=== PATIENT | female | born 2000 | race Caucasian/White ===

== ENCOUNTER 2023-05-02 10:08 | Outpatient (REF) | payer BC, SELFPAY ==
[2023-05-02 10:50] LABS: Bilirubin Urine NEGATIVE (NEGATIVE); Blood Urine MODERATE (NEGATIVE); Clarity Urine CLOUDY (CLEAR); Color Urine LT. YELLOW (YELLOW); Glucose Urine UA NEGATIVE (NEGATIVE); Ketones Urine NEGATIVE (NEGATIVE); Leukocyte Esterase Urine MODERATE (NEGATIVE); Nitrite Urine NEGATIVE (NEGATIVE); Protein Urine 100 mg/dL (NEG/TRACE); Specific Gravity Urine 1.025 (1.005-1.025); Urobilinogen Urine 0.2 EU/dL (0.2-1.0)
[2023-05-02 11:06] LABS: Bacteria Urine MODERATE #/HPF (NONE SEEN); Cast Seen? NONE SEEN #/LPF (NONE SEEN); Crystals Seen? None Seen #/HPF (None Seen); Mucus Urine TRACE (NONE SEEN); Squamous Epithelial Cell Urine RARE #/LPF (NONE/RARE); WBC Urine 75-100 #/HPF (NONE SEEN)
== END 2023-05-02 10:09 | disposition home or self-care (01) ==
LOC: LAB 10:08
PROVIDERS: PCP Family Medicine; Visit Provider Nurse Practitioner Family
DX: R35.0 Frequency of micturition (principal)
CPT/HCPCS: 81001; 81003; 87086; 87186

== ENCOUNTER 2023-05-14 10:19 | Outpatient (OUT) | payer BC, SELFPAY ==
[2023-05-14 10:37] LABS: Bilirubin Urine NEGATIVE (NEGATIVE); Blood Urine NEGATIVE (NEGATIVE); Clarity Urine CLEAR (CLEAR); Color Urine LT. YELLOW (YELLOW); Glucose Urine UA NEGATIVE (NEGATIVE); Ketones Urine NEGATIVE (NEGATIVE); Leukocyte Esterase Urine NEGATIVE (NEGATIVE); Nitrite Urine NEGATIVE (NEGATIVE); Protein Urine NEGATIVE (NEG/TRACE); Specific Gravity Urine <=1.005 (1.005-1.025); Urobilinogen Urine 0.2 EU/dL (0.2-1.0)
[2023-05-14 11:20] LABS: Bacteria Urine NONE SEEN #/HPF (NONE SEEN); Cast Seen? NONE SEEN #/LPF (NONE SEEN); Crystals Seen? None Seen #/HPF (None Seen); Mucus Urine NONE SEEN (NONE SEEN); RBC Urine 0-2 #/HPF (0-2); Squamous Epithelial Cell Urine RARE #/LPF (NONE/RARE); Urine Culture Indicated ALREADY ORDERED; WBC Urine NONE SEEN #/HPF (NONE SEEN)
== END 2023-05-14 10:20 | disposition home or self-care (01) ==
LOC: LAB 10:21
PROVIDERS: PCP Nurse Practitioner Family; Visit Provider Nurse Practitioner Family
DX: R30.0 Dysuria (principal)
CPT/HCPCS: 81001; 87086; 87150; 87186

== ENCOUNTER 2023-05-28 12:25 | Outpatient (OUT) | payer BC, SELFPAY ==
[2023-05-28 12:52] LABS: Bilirubin Urine NEGATIVE (NEGATIVE); Blood Urine NEGATIVE (NEGATIVE); Clarity Urine CLEAR (CLEAR); Color Urine LT. YELLOW (YELLOW); Glucose Urine UA NEGATIVE (NEGATIVE); Ketones Urine NEGATIVE (NEGATIVE); Leukocyte Esterase Urine NEGATIVE (NEGATIVE); Nitrite Urine NEGATIVE (NEGATIVE); Protein Urine NEGATIVE (NEG/TRACE); Specific Gravity Urine <=1.005 (1.005-1.025); Urobilinogen Urine 0.2 EU/dL (0.2-1.0); pH Urine 6.5 (5.0-9.0)
== END 2023-05-28 12:26 | disposition home or self-care (01) ==
LOC: LAB 12:28
PROVIDERS: PCP Nurse Practitioner Family; Visit Provider Nurse Practitioner Family
DX: R35.0 Frequency of micturition (principal)
CPT/HCPCS: 81003; 87086

== ENCOUNTER 2023-06-20 09:02 | Outpatient (OUT) | payer BC, SELFPAY ==
--- OUTSIDE RECORDS SUMMARY | 2023-06-20 09:14 | XMS_ITS | CCD ---
Author Name Unknown Address [address] [place] [address] Organization [facility] Care Team Providers Care Internal Grinder Name Role Phone EVERT ALVARADO Primary Care Physician Asaad, Imad Unavailable NILL ., DR CORTES Admitting Unavailable NILL ., DR CORTES Attending Unavailable HOY ., DR ANN Primary Care Unavailable NILL ., DR CORTES Consulting Unavailable EVA AMADOR Consulting Unavailable NILL ., DR CORTES Admitting Unavailable NILL ., DR CORTES Attending Unavailable HOY ., DR ANN Primary Care Unavailable NILL ., DR CORTES Consulting Unavailable BENNIE WALDEN Consulting Unavailable REY ZAZUETA Consulting Unavailable Asaad, Imad Admitting Unavailable Asaad, Imad Attending Unavailable NON STAFF Primary Care Unavailable Sebastian VACA Attending Unavailable EVERT ALVARADO Referring Unavailable Sebastian VACA Attending Unavailable MARTY, Sebastian Duenas Attending Unavailable EVERT ALVARADO Referring Unavailable NILLSebastian Attending Unavailable Allergies Allergy Classification Reported Allergen(s) Allergy Type Date of Onset Reaction(s) Facility (1 source) No Known Medication Allergies; Translations: [No Known Medication Allergies] Propensity to adverse reactions (disorder) [facility] Repository Medications Current Medications Medication Drug Class(es) Dates Sig (Normalized) Sig (Original) hydrocortisone acetate 25 mg rectal suppository (5 sources) Corticosteroid Start: 06-12-2023 Anusol-HC 25 MG 1 suppository Rectal Once a day for 30 days May, Active Start: 02-14-2023 Anusol-HC 2.5 % 1 application Rectal Twice a day for 10 days Jan, Active Start: 02-14-2023 Anusol-HC 2.5 % 1 application Rectal Twice a day for 10 days Jan, Active mesalamine 1000 mg rectal suppository (5 sources) Aminosalicylate Start: 07-11-2022 take 1000 mg rectal route once daily at bedtime Canasa 1000 mg rectal suppository 1,000 mg = 1 supp, Rectal, Once a day (at bedtime), # 30 supp, Refills(s) 1, Pharmacy: [facility]/pharmacy #[id number], 165, cm, 05/22/22 13:28:00 EST, Height/Length Dosing, 74.4, kg, 05/22/22 13:28:00 EST, Weight Dosing Start Date: 07/11/22 Status: Ordered Multi Vitamins oral tablet (2 sources) Start: 05-22-2022 take 1 tablet by mouth once daily Multi Vitamins oral tablet 1 tab(s), Oral, Daily, Refill(s) 0 Start Date: 05/22/22 Status: Ordered Problems Active Problems Problem Classification Problem Date Documented Da te Episodic/Chronic Anal and rectal conditions (4 sources) Anorectal disorder; Translations: [Other specified diseases of anus and rectum] Onset: 07-11-2022 Episodic Gastrointestinal hemorrhage (7 sources) Hemorrhage of rectum and anus; Translations: [Hemorrhage of anus and rectum] Onset: 05-22-2022 Episodic Hemorrhoids (5 sources) Internal hemorrhoids; Translations: [Other hemorrhoids] Episodic Noninfectious gastroenteritis (1 source) Noninfective gastroenteritis and colitis, unspecified; Translations: [NONINFECTIVE GE AND COLITIS UNS] Onset: 07-13-2022 Episodic Other aftercare (1 source) Other nursing home (current) drug therapy; Translations: [OTH PRISON CURRENT DRUG THERAPY] Onset: 07-13-2022 Episodic Other gastrointestinal disorders (2 sources) Constipation 05-18-2022 Episodic Other nutritional; endocrine; and metabolic disorders (2 sources) Overweight in adulthood with body mass index of 25 or more but less than 30 05-22-2022 Episodic Regional enteritis and ulcerative colitis (5 sources) Chronic ulcerative proctitis; Translations: [Ulcerative (chronic) proctitis without complications] Chronic Residual codes; unclassified (1 source) Family history of ischemic heart disease and other diseases of the circulatory system; Translations: [FAM HX ISCHEMIC HRT DZ OTH DZ CIRC] Onset: 07-13-2022 Episodic Unclassified (1 source) PERSONAL HISTORY OF COVID-19; Translations: [PERSONAL HISTORY OF COVID-19] Onset: 07-13-2022 Unclassified (1 source) CONTACT W/AND (SUSP) EXPOS COVID-19; Translations: [CONTACT W/AND (SUSP) EXPOS COVID-19] Onset: 06-24-2022 Viral infection (2 sources) Viral disease 05-18-2022 Episodic Past or Other Problems Problem Classification Problem Date Documented Da te Episodic/Chronic Unclassified (2 sources) Exposure to 2019 novel coronavirus 05-18-2022 Viral infection (2 sources) Disease caused by 2019-nCoV 05-18-2022 Results Test Name Value Interpretation Reference Range Facil ity HCG,Urineon 09-18-2022 Beta HCG ( test) Ql (U) Negative Normal [facility] Comment on above: Result Comment: PERF ORMED BY: [place] [address] PATHOLOGIST IMPLEMENTATION PROJECT MANAGER MARTA OVALLES M.D. Performed By: #### U HCG #### [address] [place] 09-18-2022 L -- ---- Specimen: Received: 09/18/22 Status: VJ Mccord Num: [id number] Spec Type: Surgical Subm Dr: Roxane Oakley MD Tissues: A Colon Biopsy (RECTAL BX) Procedures: HE/2, Gross/Micro L4 ---- Age/ Patient Sex Location Account Attending Physician ---- Christina Borjas 22/F [id number] Roxane Oakley MD ---- SPEC NUM: RECD: 09/18/22 STATUS: RADHAAmanda PATTIE NUM: [id number] LEIGHANN: 09/18/[address] [facility] [address]: Roxane Oakley MD ENTERED: 09/18/[address] [facility] [address]: AMY TYPE: Surgical DEPT: S ORDERED: HE/2, Gross/Micro L4 ORDERED: HE/2, Gross/Micro L4 Pathological Diagnosis Rectum, biopsy: - Colonic mucosa negative for significant histopathologic changes. - There is no evidence of acute, chronic or microscopic colitis. - Negative for epithelial dysplasia. Clinical Information Proctitis Gross Description Received in formalin labeled with the patient's name, number and rectal biopsy are two fragments of soft thomas tissue averaging 0.4 x 0.2 x 0.1 cm. Entirely submitted in one cassette labeled A1. Microscopic Description Two glass slides with H E stained material have been examined. The microscopic findings support the above pathologic diagnosis. ---- Specimen: Received: 09/18/22 Status: VJ Mccord Num: [id number] Spec Type: Surgical Subm Dr: Roxane Oakley MD Tissues: A Colon Biopsy (RECTAL BX) Procedures: Tyshawn COATES/Joe L4 ---- Patient: Christina Borjas [id number] (Continued) ---- Specimen: Received: 09/18/22 (Continued) Signed (signature on file) Effie Kimbrough MD 09/19/22 1018 ---- Specimen: Received: 09/18/22 Status: VJ Mccord Num: [id number] Spec Type: Surgical Subm Dr: Roxane Oakley MD Tissues: A Colon Biopsy (RECTAL BX) Procedures: Tyshawn COATES/Joe L4 ---- Patient: Christina Borjas [id number] (Continued) ---- Specimen: Received: 09/18/22 (Continued) CPT Codes 87189 ---- ---- Specimen: Received: 09/18/22 Status: VJ Mccord Num: [id number] Spec Type: Surgical Subm Dr: Roxane Oakley MD Tissues: A Colon Biopsy (RECTAL BX) Procedures: HE/2, Gross/Micro L4 ---- Patient: SuadGianaChristina C [id number] (Continued) ---- Signed (signature on file) Effie Kimbrough MD 09/19/22 1018 [facility] Consultation Noteon 07-31-19 Consultation Note [id number] 0CD:127 [facility] Ambulatory Visit Summaryon 0 07-18-2022 Ambulatory Visit Summary CHRISTINA BORJAS :2000 Visit Date:07/11/2022 Ambulatory Visit Instructions Your Diagnosis Proctitis Your Care Team Attending Physician - MARTY MIJARES, Sebastian Duenas Primary Care Physician - EVERT ALVARADO CNP This Is Your Medications List mesalamine (Canasa 1000 mg rectal suppository) Contact prescribing physician if questions or concerns multivitamin (Multi Vitamins oral tablet) Procedures Performed Colonoscopy (06/27/2022), Abscess of skin and/or subcutaneous tissue caused by ingrown hair, Extraction of wisdom tooth. What to do next Someone Will Contact You Regarding These Appointments [facility] [place] Referral, Geographic proximity, [place], [facility], possible ulcerative proctitis, 07/11/22 14:42:00 EST, Proctitis Medications What How Much When Why Instructions New mesalamine (Canasa 1000 mg rectal suppository) 1 Suppositories By rectum Once a day (at bedtime) Proctitis Refills: 1 Pickup at [facility]/pharmacy #[id number] Unchanged multivitamin (Multi Vitamins oral tablet) 1 Tablets By Mouth Every day Contact prescribing physician if questions or concerns Pharmacy Information [facility]/pharmacy #[id number]: [address], [place] [phone] Allergies No Known Allergies No Known Medication Allergies Problems Ongoing - Any problem that you are currently receiving treatment for. BMI 27.0-27.9,adult BRBPR (bright red blood per rectum) Constipation Proctitis Historical - Any problem that you are no longer receiving treatment for. COVID-19 virus infection Exposure to COVID-19 virus Viral illness Panfilo Snyder [facility] General Surgery Office/Clini c Noteon 07-11-2022 General Surgery Office/Clinic Note Chief Complaint colonoscopy follow up HPI Staff 14 day post operative follow up post colonoscopy with rectal biopsy. Rectal bleeding is unchanged. History of Present Illness s/o colonoscopy with rectal biopsy for distal proctitis; pathology consistent with mild colitis; still with frequent rectal bleeding with bms. Review of Systems ROS - Provider Constitutional: no fever, no sweats, no weight loss. Eyes: no glasses, no blurred vision, no visual loss. ENMT: no dentures, no hoarseness, no swallowing difficulties, no hearing loss, no ear infection(s), no nose bleeds. Cardiovascular: normal blood pressure, no chest pain, regular heartbeat, no heart murmur. Respiratory: no shortness of breath, no cough, no asthma, no wheezing. Gastrointestinal: no nausea, no vomiting, no diarrhea, no constipation, no blood in stool, no change in bowel habits, no abdominal pain, no hepatitis. Genitourinary: no kidney stones, no urine infection, no dysuria. Musculoskeletal: no pain, no weakness. Skin: no changing moles, no rash, no skin lumps. Neurologic: no seizures, no epilepsy, no headache. Psychiatric: no emotional or psychiatric problem. Heme/Lymph: no bleeding problems, no anemia, no blood clots, no transfusions. Allergy/Immunologic: no swollen lymph nodes/glands, no IV drug abuse. Other: Additional ROS info: Except as noted in the above Review of Systems and in the History of Present Illness, all other systems have been reviewed and are negative or noncontributory. Assessment/Plan 1. Proctitis (K62.89: Other specified diseases of anus and rectum) possible ulcerative proctitis, will begin mesalamine supp 1 gm q hs; refer to Gastroenterology at [facility], per family request; call with problems/questions. Ordered: mesalamine, 1,000 mg = 1 supp, Rectal, Once a day (at bedtime), # 30 supp, Refills(s) 1, Pharmacy: [facility]/pharmacy #[id number], 165, cm, 05/22/22 13:28:00 EST, Height/Length Dosing, 74.4, kg, 05/22/22 13:28:00 EST, Weight Dosing [facility] [place] Ambulatory Referral Follow-up No qualifying data available Problem List/Past Medical History Ongoing BMI 27.0-27.9,adult BRBPR (bright red blood per rectum) Constipation Proctitis Historical COVID-19 virus infection Exposure to COVID-19 virus Viral illness Procedure/Surgical History Colonoscopy (06/27/2022), Abscess of skin and/or subcutaneous tissue caused by ingrown hair, Extraction of wisdom tooth. Medications Canasa 1000 mg rectal suppository, 1000 mg= 1 supp, Rectal, Once a day (at bedtime), 1 refills Multi Vitamins oral tablet, 1 tab(s), Oral, Daily Allergies No Known Allergies No Known Medication Allergies Social History Alcohol - Denies Alcohol Use, 05/22/2022 Household alcohol concerns: No., 10/31/2018 Substance Abuse - Denies Substance Abuse, 05/22/2022 Household substance abuse concerns: No., 10/31/2018 Tobacco Never (less than 100 in lifetime) Tobacco Use:. Never Smokeless Tobacco Use:., 05/22/2022 Family History Family history is negative Immunizations Vaccine Date Status Comments influenza virus vaccine, inactivated - Not Given Patient Refuses tetanus-diphtheria toxoids 01/21/2014 Recorded meningococcal conjugate vaccine 01/21/2014 Recorded varicella virus vaccine 08/06/2006 Recorded measles/mumps/rubella virus vaccine 08/06/2006 Recorded poliovirus vaccine, inactivated 08/06/2006 Recorded diphtheria/pertussis, acel/tetanus adult 08/06/2006 Recorded varicella virus vaccine 11/11/2002 Recorded measles/mumps/rubella virus vaccine 11/11/2002 Recorded haemophilus b conjugate (HbOC) vaccine 11/11/2002 Recorded diphtheria/pertussis, acel/tetanus adult 11/11/2002 Recorded hepatitis B adult vaccine 05/08/2002 Recorded poliovirus vaccine, inactivated 05/08/2002 Recorded haemophilus b conjugate (HbOC) vaccine 05/08/2002 Recorded diphtheria/pertussis, acel/tetanus adult 05/08/2002 Recorded hepatitis B adult vaccine 2001 Recorded poliovirus vaccine, inactivated 2001 Recorded haemophilus b conjugate (HbOC) vaccine 2001 Recorded diphtheria/pertussis, acel/tetanus adult 2001 Recorded hepatitis B adult vaccine 2001 Recorded poliovirus vaccine, inactivated 2001 Recorded haemophilus b conjugate (HbOC) vaccine 2001 Recorded diphtheria/pertussis, acel/tetanus adult 2001 Recorded Normal [facility] Comment on above: Result Comment: Elec tronically Signed By: MARTY MIJARES, Sebastian Marie\Date and Time Signed: 07/11/22 14:55 EST Pathology Noteon 06-29-2022 Pathology Note [id number] 0CD:127 Normal [facility] Outside Colonoscopyon 2022 Outside Colonoscopy [id number] 0CD:127 Normal [facility] POINT OF CARE GLUCOSEon 06-17 Glucose [Mass/Vol] 106 mg/dL Normal 74-106 [facility] Comment on above: Performed By: #### P OCGLUC #### [facility] [address] [place] [address] Dr. Lance Mendoza PREG HCG QUALon 06-27-2022 , QUAL Negative Normal NEGATIVE [facility] Comment on above: Performed By: #### P REG #### [facility] [address] [address] [address] Lance Mendoza Lab Reportson 06-21-2022 Lab Reports [id number] 0CD:127 Normal [facility] Covid-19 PCR (CVDTB)on SARS-CoV-2 (COVID-19) RNA SHANIQUA+probe Ql (Unsp spec) Not detected Normal NOT DETECTED [facility] Comment on above: Result Comment: This test is not yet approved or cleared by the [place] FDA. When there are no FDA-approved or cleared tests available, and other criteria are met, FDA can make tests available under an emergency access mechanism called an Emergency Use Authorization (EUA). The EUA for this test is supported by the Stop Attacher of Health and Human Service's (HHS's) declaration that circumstances exist to justify the emergency use of in vitro diagnostics for the detection and/or diagnosis of the virus that causes COVID-19. This EUA will remain in effect (meaning this test can be used) for the duration of the COVID-19 declaration justifying emergency of IVDs, unless it is terminated or revoked by FDA (after which the test may no longer be used). When diagnostic testing is negative, the possibility of a false negative should be considered in the context of a patient's recent exposures and the presence of clinical signs and symptoms consistent with SARS-CoV-2. Performed By: #### C [facility] #### [facility] [address] [place] [address] Dr. Lance Mendoza Consent for Procedure/Surger yon 05-24-2022 Consent for Procedure/Surgery [id number] 0CD:127 [facility] Facesheeton 05-24-2022 Facesheet [id number] 0CD:127 [facility] Physician Referralon 022 Physician Referral [id number] 0CD:127 [facility] Auth for Release of Medical Recordson 02-01-2022 Auth for Release of Medical Records [id number] CD:127 [facility] Vital Signs Date Time Vital Sign Value Performing Clinician Facility 02-14-2023 08:45-0400 Body height 167.64 cm [facility] Other [email or web address] Other 02-14-2023 08:45-0400 Body mass index (BMI) [Ratio] 25.98 kg/m2 [facility] Other [email or web address] Other 02-14-2023 08:45-0400 Body weight 73.03 kg Imad Asaad Other [email or web address] Other 02-14-2023 08:45-0400 Diastolic blood pressure 73 mm[Hg] Imad Asaad Other [email or web address] Other 02-14-2023 08:45-0400 Systolic blood pressure 121 mm[Hg] Imad Asaad Other [email or web address] Other 07-26-2022 09:45-0500 Body height 167.64 cm Imad Asaad Other [email or web address] Other 07-26-2022 09:45-0500 Body mass index (BMI) [Ratio] 27.6 kg/m2 Imad Asaad Other [email or web address] Other 07-26-2022 09:45-0500 Body weight 77.57 kg Imad Asaad Other [email or web address] Other 07-26-2022 09:45-0500 Diastolic blood pressure 64 mm[Hg] Imad Asaad Other [email or web address] Other 07-26-2022 09:45-0500 Systolic blood pressure 101 mm[Hg] Imad Asaad Other [email or web address] Other 05-22-2022 13:21-0500 Blood Pressure Location Sebastian VACA [facility] 05-22-2022 13:21-0500 Diastolic blood pressure 74 mm[Hg] Sebastian VACA [facility] 05-22-2022 13:21-0500 Heart rate 72 /min Sebastian MARTY [facility] 05-22-2022 13:21-0500 Respiratory rate 16 /min Sebastian MARTY [facility] 05-22-2022 13:21-0500 Systolic blood pressure 118 mm[Hg] Sebastian MARTY [facility] [place] Encounters Encounter Date Encounter Type Care Provider Facility Start: 06-12-2023 End: 06-12-2023 ambulatory Imad Asaad Other [email or web address] Other Start: 06-12-2023 Telephone encounter Imad Asaad [facility] Start: 06-04-2023 End: 06-04-2023 ambulatory Imad Asaad Other [email or web address] Other Start: 06-04-2023 Telephone encounter Imad Asaad [facility] Start: 04-19-2023 End: 04-19-2023 ambulatory Imad Asaad Other [email or web address] Other Start: 04-19-2023 Telephone encounter Imad Asaad [facility] Start: 02-14-2023 End: 02-14-2023 ambulatory Imad Asaad Other [email or web address] Other Start: 02-14-2023 Office outpatient ne w 45 minutes Imad Asaad [facility] Start: 09-18-2022 End: 09-18-2022 ambulatory Imad Asaad Facility:[facility] Start: 07-26-2022 End: 07-26-2022 ambulatory Imad Asaad Other [email or web address] Other Start: 07-26-2022 Office consultation new/estab patient 60 min Imad Asaad [facility] Start: 07-11-2022 End: 07-12-2022 ambulatory Sebastian VACA Facility:[facility] Start: 07-11-2022 End: 07-11-2022 Patient encounter procedure Sebastian VACA General Surgery Nill/Said [facility] Start: 06-27-2022 End: 06-28-[address] SEBASTIAN VACA . Facility: Start: 06-24-2022 Encounter for preprocedural laboratory examination DR SEBASTIAN VACA . [facility] Start: 06-20-2022 End: 06-21-[address] SEBASTIAN VACA . Facility: Start: 06-20-2022 End: 06-21-2022 Encounter for preprocedural laboratory examination DR SEBASTIAN VACA . Facility: Start: 05-22-2022 End: 05-23-2022 ambulatory Sebastian VACA Facility:[facility] Start: 05-22-2022 End: 05-22-2022 Patient encounter procedure Sebastian VACA General Surgery Nill/Said [facility] Start: 04-18-2022 ambulatory Sebastian VACA Facility :[facility] Procedures Date Procedure Procedure Detail Performing Clinician Start: 06-27-2022 Colonoscopy Sebastian SORIA Extraction of wisdom tooth M rolan MARTY Pilonidal abscess Sebastian SORIA Immunizations Immunization Date Immunization Notes Care Provider Fa [facility] 01-21-2014 meningococcal ACWY vaccine, unspecified formulation Sebastian VACA [facility] 01-21-2014 tetanus and diphther ia toxoids, adsorbed, preservative free, for adult use (2 Lf of tetanus toxoid and 2 Lf of diphtheria toxoid) Sebastian VACA [facility] 08-06-2006 measles, mumps and rubella virus vaccine Sebastian VACA [facility] 08-06-2006 poliovirus vaccine, unspecified formulation Sebastian VACA [facility] 08-06-2006 tetanus toxoid, reduced diphtheria toxoid, and acellular pertussis vaccine, adsorbed Sebastian NILL [facility] 08-06-2006 varicella virus vaccine Sebastian NILL [facility] 11-11-2002 haemophilus influenz ae type b vaccine, HbOC conjugate Sebastian NILL [facility] 11-11-2002 measles, mumps and rubella virus vaccine Sebastian NILL [facility] 11-11-2002 tetanus toxoid, reduced diphtheria toxoid, and acellular pertussis vaccine, adsorbed Sebastian NILL [facility] 11-11-2002 varicella virus vaccine Sebastian NILL [facility] 05-08-2002 haemophilus influenz ae type b vaccine, HbOC conjugate Sebastian NILL [facility] 05-08-2002 hepatitis B vaccine, adult dosage Sebastian NILL [facility] 05-08-2002 poliovirus vaccine, unspecified formulation Sebastian NILL [facility] 05-08-2002 tetanus toxoid, reduced diphtheria toxoid, and acellular pertussis vaccine, adsorbed Sebastian NILL [facility] 2001 haemophilus influenz ae type b vaccine, HbOC conjugate Sebastian NILL [facility] 2001 hepatitis B vaccine, adult dosage Sebastian NILL [facility] 2001 poliovirus vaccine, unspecified formulation Sebastian NILL [facility] 2001 tetanus toxoid, reduced diphtheria toxoid, and acellular pertussis vaccine, adsorbed Sebastian NILL [facility] 2001 haemophilus influenz ae type b vaccine, HbOC conjugate Sebastian NILL [facility] 2001 hepatitis B vaccine, adult dosage Sebastian NILL [facility] 2001 poliovirus vaccine, unspecified formulation Sebastian NILL [facility] 2001 tetanus toxoid, reduced diphtheria toxoid, and acellular pertussis vaccine, adsorbed Sebastian NILL [facility] NEGATED: Highlighted row has not occurred!05-22-2022 influenza virus vaccine, unspecified formulation Sebastian ARAGON [facility] [place] Payers Date Payer Category Payer Self-pay 2022 Unknown [id number] 2001 Unknown [id number] 2.16.84 [id number] 2001 Unknown [id number] 2.16.84 [id number] 2001 Unknown [id number] 2.16.8 [id number] 2001 Unknown [id number] 2.16.8 [id number] 2001 Unknown [id number] 2.16.8 [id number] 2001 Unknown [id number] 2.16.8 [id number] 1958 [facility] [id number] 1958 Unknown [id number] Unknown [id number] 2.16.8 [id number] Social History Date Type Detail Facility Start: 05-22-2022 Tobacco smoking status Never s moked tobacco (finding) [facility] Tobacco smoking status Never Gener [facility] Sex Assigned At Female [facility] Functional Status Date Assessment Result Facility 05-22-2022 Functional Status N/A [facility] Clinical Notes 05-22-2022 to 02-14-2023 Note Date & Type Note Facility 02-14-2023 Evaluation note Encounter Date Diagnosis Assessment Notes Jan, Hemorrhoids, internal (ICD-10 - K64.8) [email or web address] Other 02-09-2023 Evaluation note* Encounter Date Diagnosis Assessment Notes Treatment Notes Treatment Clinical Notes Jul, Proctitis (ICD-10 - K62.89) Continue Mesalamine suppositories for 8 weeks Flex sig after 8 weeks of treatment [email or web address] Other 01-11-2023 NoteOPERATIVE NOTE OPERATION DATE: 06/27/2022 PREOPERATIVE DIAGNOSIS: Intermittent rectal bleeding. POSTOPERATIVE DIAGNOSIS: Rectal inflammation. PROCEDURE: Colonoscopy to cecum with rectal biopsy x2. SURGEON: Sebastian Vaca M.D. ANESTHESIA: Monitored anesthesia care. ESTIMATED BLOOD LOSS: Less than 1 mL. INDICATIONS AND CONSENT: Patient is a 22-year-old female with several month history of intermittent rectal bleeding. Indications, risks, benefits, alternatives of proceeding with colonoscopy were explained extensively to the patient, including the risks of bleeding, colon perforation or anesthetic complications. All of her questions were answered. Informed consent was obtained. PROCEDURE: Patient brought to the operating room, placed in the left lateral decubitus position. Monitored anesthesia care was provided. Rectal exam was performed which showed no masses or blood. The scope was inserted into the anal canal. Under direct visualization was advanced. It was advanced to the cecum where cecal markings were clearly identified. The terminal ileum was unable to be intubated due to the angle. Upon withdrawal of the scope, mucosal surfaces were carefully examined. There were no mass lesions or polyps. No significant diverticulosis. Within the lower portion of the rectum, there was noted to be inflammation, but no active bleeding. Several biopsies were obtained with good hemostasis. There were no ulcerations. No significant hemorrhoidal disease. Scope was then withdrawn. Patient tolerated procedure well, was sent to recovery room in good condition. CC: Enrique Thomson M.D.[facility]12-06-2022 NoteChief Complaint consultation for rectal bleeding HPI Staff 21 year old female presents on consultation from Bing Alvarado for rectal bleeding. Reports 3-4 episodes per week for the past several months. Reports blood on stool, in toilet water and with wiping. Reports blood is bright red. Denies rectal pain. Denies change in stools or straining for bowel movements. Denies abdominal pain, nausea or vomiting. Denies weight loss. Never had colonoscopy in the past. No known family history of colon cancer or IBD. History of Present Illness 21 yo female referred for intermittent rectal bleeding over past several months; BRBBR with bms andwith wiping, about twice per week; no hematochezia or melena; no abdominal or rectal pain; no N/V; no previous abdominal or anal surgery; no previous colonoscopy; no fmhx of GI malignancy or IBD; patient's father with h/o colon polyps. Review of Systems PHQ Score Initial Depression Screen Score: 0 ROS - Provider Constitutional: no fever, no sweats, no weight loss. Eyes: no glasses, no blurred vision, no visual loss. ENMT: no dentures, no hoarseness, no swallowing difficulties, no hearing loss, no ear infection(s),no nose bleeds. Cardiovascular: normal blood pressure, no chest pain, regular heartbeat, no heart murmur. Respiratory: no shortness of breath, no cough, no asthma, no wheezing. Gastrointestinal: no nausea, no vomiting, no diarrhea, no constipation, no blood in stool, no change in bowel habits, no abdominal pain, no hepatitis. Genitourinary: no kidney stones, no urine infection, no dysuria. Musculoskeletal: no pain, no weakness. Skin: no changing moles, no rash, no skin lumps. Neurologic: no seizures, no epilepsy, no headache. Psychiatric: no emotional or psychiatric problem. Heme/Lymph: no bleeding problems, no anemia, no blood clots, no transfusions. Allergy/Immunologic: no swollen lymph nodes/glands, no IV drug abuse. Other: Additional ROS info: Except as noted in the above Review of Systems and in the History of Present Illness, all other systems have been reviewed and are negative or noncontributory. Physical Exam Vitals & Measurements HR: 72(Peripheral) RR: 16 BP: 118/74 HT: 65 in HT: 165 cm WT: 74.4 kg WT: 163.68 lb BMI: 27.33 HEENT: normal conjunctiva, sclera clear, no scleral icterus, EOM intact, PERRLA, oral mucosa moist without lesions. Neck: trachea midline, no mass, symmetric, no thyromegaly or nodules, no adenopathy Respiratory: lungs CTA, respirations non labored. Cardiovascular: regular rate and rhythm, no murmur, no pedal edema or varicosities. Gastrointestinal: soft, non distended, no tenderness, no masses, no palpable hernias, diastasis recti no, no hepatosplenomegaly; normal bs Lymphatic: no cervical adenopathy, Musculoskeletal: normal gait, digits and nails without infection, nodes, cyanosis, clubbing. Skin: no rashes, no lesions, no ulcers, no subcutaneous nodules, induration. Psychiatric/Neuro: oriented to time, place, person, judgement normal, affect appropriate for age, insight intact, no focal deficits. Tests: review of old records completed, Discussed surgical options, risks, and possible complications with patient. Assessment/Plan 1. BRBPR (bright red blood per rectum) (K62.5: Hemorrhage of anus and rectum) plan colonoscopy under anesthesia for further, informed consent obtained. Follow-up No qualifying data available Problem List/Past Medical History Ongoing BMI 27.0-27.9,adult BRBPR (bright red blood per rectum) Constipation Historical COVID-19 virus infection Exposure to COVID-19 virus Viral illness Procedure/Surgical History Abscess of skin and/or subcutaneous tissue caused by ingrown hair, Extraction of wisdom tooth. Medications Multi Vitamins oral tablet, 1 tab(s), Oral, Daily Allergies No Known Allergies No Known Medication Allergies Social History Alcohol - Denies Alcohol Use, 05/22/2022 Household alcohol concerns: No., 10/31/2018 Substance Abuse - Denies Substance Abuse, 05/22/2022 Household substance abuse concerns: No., 10/31/2018 Tobacco Never (less than 100 in lifetime) Tobacco Use:. Never Smokeless Tobacco Use:., 05/22/2022 Family History Family history is negative Immunizations Vaccine Date Status Comments influenza virus vaccine, inactivated - Not Given Patient Refuses tetanus-diphtheria toxoids 01/21/2014 Recorded meningococcal conjugate vaccine 01/21/2014 Recorded varicella virus vaccine 08/06/2006 Recorded measles/mumps/rubella virus vaccine 08/06/2006 Recorded poliovirus vaccine, inactivated 08/06/2006 Recorded diphtheria/pertussis, acel/tetanus adult 08/06/2006 Recorded varicella virus vaccine 11/11/2002 Recorded measles/mumps/rubella virus vaccine 11/11/2002 Recorded haemophilus b conjugate (HbOC) vaccine 11/11/2002 Recorded diphtheria/pertussis, acel/tetanus adult 11/11/2002 Recorded hepatitis B adult vaccine 05/08/2002 Recorded poliovirus vaccine, inactivat (more content not included)...[facility]Comment [facility]:Result Comment: Electronically Signed By: MRATY MIJARES, Sebastian Duenas\.br\Date and Time Signed: 05/22/22 16:11 ESTEvaluation + Plan note No data available for this section General Surgery [place] Evaluation + Plan noteGeneral Surgery [place] Evaluation noteNo Information[facility] Other History general Narrative - Reported* Type Description Date Medical History proctitis Surgical History wisdom tooth extraction Surgical History abscess removal, right orthodoxy [facility] Other Hospital Discharge instructions No data available for this section General Surgery [place] Progress note No data available for this section General Surgery [place] Reason for referral (narrative) Referred by: Sebastian VACA MD General Surgery [place] Reason for visit NarrativeCONSULT FOR ULCERATIVE PROCTITIS//[facility] [employer] Other Summary Purpose Family History No Family History Records FoundNo Family History Records FoundNo Family History Records Found Advance Directives No Advanced Directives Records FoundNo Advanced Directives Records FoundNo Advanced Directives Records Found Additional Source Comments Patient Care team informatio n (unrecognized section and content) Personnel Name: EVERT ALVARADO CNP Address: Address: [address] [place] [address]- Personnel Name: EVERT ALVARADO CNP Address: Address: [address] [place] [address]- INFORMATION SOURCE (unrecogn ized section and content) DATE CREATED AUTHOR 08/23/2022 [facility] DATE CREATED AUTHOR AUTHOR'S ORGANIZ ATION 09/22/2022 [facility] DATE CREATED AUTHOR AUTHOR'S ORGANIZ ATION 10/20/2022 [facility] REASON FOR VISIT (unrecogniz ed section and content) PATIENT IS HERE FOR FOLLOW T O FLEX SIGClinicalClinical Acute MedicineCHECKING ON PRESCRIPTION FOR RECORDS PERTAINING TO PATIENTS WHO ARE OR HAVE BEEN ENROLLED IN A CHEMICAL DEPENDENCY/SUBSTANCEABUSE PROGRAM, SOME INFORMATION MAY BE OMITTED. This clinical summary was aggregated from multiple sources. Caution should be exercised in using it in the provision of clinical care. This summary normalizes information from multiple sources, and as a consequence, information in this document may materially change the coding, format and clinical context of patient data. In addition, data may be omitted in some cases. CLINICAL DECISIONS SHOULD BE BASED ON THE PRIMARY CLINICAL RECORDS. [employer] provides no warranty or guarantee of the accuracy or completeness of information in this document.
[2023-06-20 10:13] LABS: Bilirubin Urine NEGATIVE (NEGATIVE); Blood Urine NEGATIVE (NEGATIVE); Clarity Urine CLEAR (CLEAR); Color Urine YELLOW (YELLOW); Glucose Urine UA NEGATIVE (NEGATIVE); Ketones Urine NEGATIVE (NEGATIVE); Leukocyte Esterase Urine NEGATIVE (NEGATIVE); Nitrite Urine NEGATIVE (NEGATIVE); Protein Urine NEGATIVE (NEG/TRACE); Specific Gravity Urine 1.015 (1.005-1.025); Urobilinogen Urine 0.2 EU/dL (0.2-1.0)
[2023-06-20 10:38] LABS: Bacteria Urine NONE SEEN #/HPF (NONE SEEN); Mucus Urine SMALL (NONE SEEN); RBC Urine NONE SEEN #/HPF (0-2); Squamous Epithelial Cell Urine FEW #/LPF (NONE/RARE); WBC Urine NONE SEEN #/HPF (NONE SEEN)
== END 2023-06-20 09:03 | disposition home or self-care (01) ==
LOC: LAB 09:03
PROVIDERS: PCP Nurse Practitioner Family; Visit Provider Nurse Practitioner Family
DX: N39.0 Urinary tract infection, site not specified (principal)
CPT/HCPCS: 81001; 87086

== ENCOUNTER 2024-03-02 09:50 | Outpatient (OUT) | payer BC, SELFPAY ==
[2024-03-02 10:07] LABS: Bilirubin Urine NEGATIVE (NEGATIVE); Blood Urine NEGATIVE (NEGATIVE); Clarity Urine CLEAR (CLEAR); Color Urine LT. YELLOW (YELLOW); Glucose Urine UA NEGATIVE (NEGATIVE); Ketones Urine NEGATIVE (NEGATIVE); Leukocyte Esterase Urine TRACE (NEGATIVE); Nitrite Urine NEGATIVE (NEGATIVE); Protein Urine NEGATIVE (NEG/TRACE); Specific Gravity Urine <=1.005 (1.005-1.025); Urobilinogen Urine 0.2 EU/dL (0.2-1.0)
--- OUTSIDE RECORDS SUMMARY | 2024-03-02 10:11 | XMS_ITS | CCD ---
Author Organization [facility] Care Team Providers Care Director Medical Safety Name Role Phone EVERT ALVARADO Primary Care [...] WALDEN Consulting Unavailable REY ZAZUETA Consulting Unavailable Sebastian FERGUSON Attending Unavailable EVERT ALVARADO Referring Unavailable Sebastian FERGUSON Attending Unavailable NILLSebastian Attending Unavailable EVERT ALVARADO Referring Unavailable NILLSebastian Attending Unavailable HERSTEK, JESSICA L Referring Unavailable HERSTEK, JESSICA L Primary Care Unavailable NON STAFF Primary Care Provider UnavailAWILDA Caraballo Emergency Provider [employer] MECH[employer]IC FOREM[employer].Jessica MAY Primary Care Provider Asaad, Imad Admitting Unavailable NON STAFF Primary Care Unavailable Asaad, Imad Attending Unavailable NON STAFF Primary Care Unavailable Mahad Bishop Attending Unavailable Mahad Bishop Admitting Unavailable RIBAKOW, DALTON Referring Unavailable HERSTEK, JESSICA L Primary Care Unavailable RIBAKOW, DALTON Referring Unavailable HERSTEK, JESSICA L Primary Care Unavailable RIBAKOW, DALTON Attending Unavailable HERSTEK, JESSICA L Primary Care Unavailable SELF Referring Unavailable HERSTEK, JESSICA L Primary Care Unavailable RIBAKOW, DALTON Referring Unavailable EDWIN TONEY Attending Unavailable HERSTEK, JESSICA L Primary Care Unavailable HERSTEK, JESSICA L Attending Unavailable HERSTEK, JESSICA L Primary Care Unavailable HERSTEK, JESSICA L Primary Care Unavailable HERSTEK, JESSICA L Primary Care Unavailable HERSTEK, JESSICA L Referring Unavailable JENARO CAVANAUGH Attending Unavailable DALTON MARK Attending Unavailable HERSTEK, JESSICA L Primary Care Unavailable HERSTEK, JESSICA L Referring Unavailable HERSTEK, JESSICA L Primary Care Unavailable HERSTEK, JESSICA L Primary Care Unavailable [employer] MECHANIC FOREMAN.YADIRAJessica Primary Care Provider Allergies Allergy Classification Reported Allergen(s) Allergy Type Date of Onset Reaction(s) Facility (1 source) No Known Medication Allergies; Translations: [No Known Medication Allergies] Propensity to adverse reactions (disorder) [facility] Repository Medications Current Medications Medication Drug Class(es) Dates Sig (Normalized) Sig (Original) amoxicillin 875 mg / clavulanate 125 mg oral tablet (9 sources) Penicillin-class Antibacterial Start: 07-13-2023 take 1 tablet by mouth every twelve hours amoxicillin-clav ulanate potassium (AUGMENTIN) 875-125 mg per tablet Take 1 tablet by mouth every 12 hours. 07/13/2023 Active Start: 07-13-2023 take 1 tablet by ken th twice daily Amoxicillin-Pot Clavulanate Active 1 TAB PO Twice daily July 13, 2023 12:00am Comment on above: Take 1 tablet by ken th every 12 hours. hydrocortisone acetate 25 mg rectal suppository (5 [...] bedtime), # 30 supp, Refills(s) 1, Pharmacy: [facility]/pharmacy #[id number], 165, cm, 05/22/22 13:28:00 EST, Height/Length Dosing, 74.4, kg, 05/22/22 13:28:00 EST, Weight Dosing Start Date: 07/11/22 Status: Ordered Multi Vitamins oral tablet (2 sources) Start: 05-22-2022 take 1 tablet by mouth once daily Multi Vitamins oral tablet 1 tab(s), Oral, Daily, Refill(s) 0 Start Date: 05/22/22 Status: Ordered Canon (No Known Home Meds) (1 source) Start: 09-17-2022 Canon (No Known Home Meds) Active September 16, 2022 11:00pm 1 ml ustekinumab 90 mg/ml prefilled syringe (2 sources) Interleukin-12 Antagonist, Interleukin-23 Antagonist Start: 09-10-2023 End: 03-08-2024 ustekinumab (STELARA) 90 mg/mL injection Indications: Ulcerative pancolitis with rectal bleeding (HCC) Inject 90mg(1 syringe) subcutaneously every 8 weeks. 3 mL 0 09/10/2023 03/08/2024 Active Comment on above: Inject 90mg(1 syring e) subcutaneously every 8 weeks. Completed/Discontinued Medications Medication Drug Class(es) Dates Sig (Normalized) Sig (Original) dicyclomine hydrochloride 10 mg oral capsule (4 sources) Anticholinergic Start: 07-16-2023 End: 08-15-2023 take 1 capsule by mouth at bedtime dicyclomine (BENTYL) 10 mg capsule Indications: Rectal bleeding , IBD (inflammatory bowel disease) Take 1 capsule by mouth before meals and at bedtime. 120 capsule 07/16/2023 08/15/2023 Comment on above: Take 1 capsule by mo [facility] before meals and at bedtime. ferrous sulfate 325 mg oral tablet (8 sources) Start: 07-11-2023 End: 10-09-2023 take 1 tablet by mouth twice daily ferrous sulfate 325 mg (65 mg iron) tablet Indications: Iron deficiency anemia due to chronic blood loss Take 1 tablet by mouth two times a day. 180 tablet 07/11/2023 10/09/2023 Comment on above: Take 1 tablet by ken two times a day. predniSONE 5 mg oral tablet (7 sources) Start: 07-18-2023 End: 09-12-2023 take 8 tablets by mouth once daily, then take 7 tablets by mouth once daily, then take 6 tablets by mouth once daily, then take 5 tablets by mouth once daily, then take 4 tablets by mouth once daily, then take 3 tablets by mouth once daily, then take 2 tablets by mouth once daily, then take 1 tablet by mouth once daily predniSONE (DELTASONE) 5 mg tablet Take 8 tablets by mouth once daily for 7 days, THEN 7 tablets once daily for 7 days, THEN 6 tablets once daily for 7 days, THEN 5 tablets once daily for 7 days, THEN 4 tablets once daily for 7 days, THEN 3 tablets once daily for 7 days, THEN 2 tablets once daily for 7 days, THEN 1 tablet once daily for 7 days. 252 tablet 07/18/2023 09/12/2023 Comment on above: Take 8 tablets by mo uth once daily for 7 days, THEN 7 tablets once daily for 7 days, THEN 6 tablets once daily for 7 days, THEN 5 tablets once daily for 7 days, THEN 4 tablets once daily for 7 days, THEN 3 tablets once daily for 7 days, THEN 2 tablets once daily for 7 days, THEN 1 tablet once daily for 7 days. Problems Active Problems Problem Classification Problem Date Documented Da te Episodic/Chronic Abdominal pain (1 source) Unspecified abdominal pain; Translations: [Unspecified abdominal pain] Onset: 07-13-2023 Episodic Gastrointestinal hemorrhage (9 sources) Hemorrhage of rectum and anus; Translations: [Hemorrhage of anus and rectum] Onset: 05-22-2022 Episodic Hemorrhoids (5 sources) Internal hemorrhoids; Translations: [Other hemorrhoids] Episodic Noninfectious gastroenteritis (5 sources) Noninfective gastroenteritis and colitis, unspecified; Translations: [Colitis] Onset: 07-13-2022 07-13-2023 Episodic Other aftercare (1 source) Other alf (current) drug therapy; Translations: [OTH CORRECTION CURRENT DRUG THERAPY] Onset: 07-13-2022 Episodic Other gastrointestinal disorders (2 sources) Constipation 05-18-2022 Episodic Other nutritional; endocrine; and metabolic disorders (2 sources) Overweight in adulthood with body mass index of 25 or more but less than 30 05-22-2022 Episodic Regional enteritis and ulcerative colitis (18 sources) Chronic ulcerative proctitis; Translations: [Ulcerative (chronic) proctitis without complications] Onset: 07-25-2023 07-25-2023 Chronic Residual codes; unclassified (1 source) Family history of ischemic heart disease and other diseases of the circulatory system; Translations: [FAM HX ISCHEMIC HRT DZ OTH DZ CIRC] Onset: 07-13-2022 Episodic Unclassified (1 source) PERSONAL HISTORY OF COVID-19; Translations: [PERSONAL HISTORY OF COVID-19] Onset: 07-13-2022 Unclassified (1 source) CONTACT W/AND (SUSP) EXPOS COVID-19; Translations: [CONTACT W/AND (SUSP) EXPOS COVID-19] Onset: 06-24-2022 Unclassified (1 source) OPENED IN ERROR 07-25-2023 Viral infection (2 sources) Viral disease 05-18-2022 Episodic Past or Other Problems Problem Classification Problem Date Documented Da te Episodic/Chronic Anal and rectal conditions (4 sources) Anorectal disorder; Translations: [Other specified diseases of anus and rectum] Onset: 07-11-2022 Episodic Unclassified (2 sources) Exposure to 2019 novel coronavirus 05-18-2022 Viral infection (2 sources) Disease caused by 2019-nCoV 05-18-2022 Results Test Name Value Interpretation Reference Range Facility NURSING PROGon 09-10-2023 NURSING PROG HNO ID: [id number] Author: EMMA PROCTOR RN Service: ? Author Type: Registered Nurse Type: Nursing Progress Note Filed: 09/10/2023 09:05 Note Text: AMBULATORY PATIENT EDUCATION NOTE TOPIC: Stelara READINESS TO LEARN INSTRUCTION PROVIDED TO: Patient, readness to learn accessed prior to procedure and Family member COGNITIVE ABILITY: Alert and oriented PTED MOTIVATION TO LEARN: Interested FAMILY SUPPORT: High - Very involved in pt care IPATIENT LEARNS BEST BY: Individual Instruction Verbal Instruction FACTORS AFFECTING LEARNING: None PHYSICAL LIMITATIONS AFFECTING LEARNING: None LEARNING RESPONSE METHOD OF INSTRUCTION: Individual instruction PATIENT / FAMILY RESPONSE: Verbalizes understanding of: WORSENING CONDITION-Signs and symptoms of a worsening condition that warrant a call to the physician FOLLOW-UP PLAN: Complete - No need for follow-up Electronically Signed By: Emma Proctor, KAN Christina Borjas Reason for therapy: IBD Ordering Physician: Deedee Supervising/Billing Physician: Paige Pre-Medications Administered: No Medications Administered: Perry (See MAR) Dose #: 1 Start: 0750AM / Stop: 0855AM Fevers in last 7 days: No / Rash: No Infusion tolerated well? No IV: See avatar Vital Signs: See Flow sheets Additional Notes if applicable: N/A Electronically Signed By: Emma Proctor RN Normal [facility] XR CHEST 2V FRONTAL/LATon XR CHEST 2V FRONTAL/LAT * * *Final Repor t* * * DATE OF EXAM: Aug 09 2023 10:32AM [id number] [id number] - XR CHEST 2V FRONTAL/LAT / PROCEDURE REASON: Ulcerative pancolitis with rectal bleeding (HCC) * * * * Physician Interpretation * * * * RESULT: EXAMINATION: CHEST RADIOGRAPH (2 VIEW FRONTAL and LATERAL) CLINICAL HISTORY: Ulcerative pancolitis with rectal bleeding (HCC) MQ: XC2_6 EXAM DATE/TIME: 08/09/2023 10:32 AM COMPARISON: No relevant prior studies available. RESULT: Lines, tubes, and devices: None. Lungs and pleura: No consolidation. No lung mass. No pleural effusion. No pneumothorax. Cardiomediastinal silhouette: Normal cardiomediastinal silhouette. Bones and soft tissues: Unremarkable. IMPRESSION: No acute radiographic abnormality. Transcribe Date/Time: Aug 09 2023 5:42P Dictated by: DAV GONZALEZ MD This examination was interpreted and the report reviewed and electronically signed by: DAV GONZALEZ MD on Aug 09 2023 5:42PM EST Thank you for allowing us to participate in the care of your patient. Should there be any questions regarding this interpretation, please call [phone]. If you are unable to reach us at the number above, please feel free to contact [facility] at [phone]. [id number] Normal [facility] XR Chest PA and Lateralon IMPRESSION: No acute radiographic abnormality. Transcribe Date/Time: Aug 09 2023 5:42P Dictated by: DAV GONZALEZ MD This examination was interpreted and the report reviewed and electronically signed by: DAV GONZALEZ MD on Aug 09 2023 5:42PM EST Thank you for allowing us to participate in the care of your patient. Should there be any questions regarding this interpretation, please call [phone]. If you are unable to reach us at the number above, please feel free to contact [facility] at [phone]. DIVISION OF RADIOLOGY * * *Final Report* * * DATE OF EXAM: Aug 09 2023 10:32AM [id number] [id number] - XR CHEST 2V FRONTAL/LAT / PROCEDURE REASON: Ulcerative pancolitis with rectal bleeding (HCC) * * * * Physician Interpretation * * * * RESULT: EXAMINATION: CHEST RADIOGRAPH (2 VIEW FRONTAL & LATERAL) CLINICAL HISTORY: Ulcerative pancolitis with rectal bleeding (HCC) MQ: XC2_6 EXAM DATE/TIME: 08/09/2023 10:32 AM COMPARISON: No relevant prior studies available. RESULT: Lines, tubes, and devices: None. Lungs and pleura: No consolidation. No lung mass. No pleural effusion. No pneumothorax. Cardiomediastinal silhouette: Normal cardiomediastinal silhouette. Bones and soft tissues: Unremarkable. DIVISION OF RADIOLOGY Provider, [facility] - 08/09/2023 * * *Final Report* * * DATE OF EXAM: Aug 09 2023 10:32AM [id number] [id number] - XR CHEST 2V FRONTAL/LAT / PROCEDURE REASON: Ulcerative pancolitis with rectal bleeding (HCC) * * * * Physician Interpretation * * * * RESULT: EXAMINATION: CHEST RADIOGRAPH (2 VIEW FRONTAL & LATERAL) CLINICAL HISTORY: Ulcerative pancolitis with rectal bleeding (HCC) MQ: XC2_6 EXAM DATE/TIME: 08/09/2023 10:32 AM COMPARISON: No relevant prior studies available. RESULT: Lines, tubes, and devices: None. Lungs and pleura: No consolidation. No lung mass. No pleural effusion. No pneumothorax. Cardiomediastinal silhouette: Normal cardiomediastinal silhouette. Bones and soft tissues: Unremarkable. IMPRESSION IMPRESSION: No acute radiographic abnormality. Transcribe Date/Time: Aug 09 2023 5:42P Dictated by: DAV GONZALEZ MD This examination was interpreted and the report reviewed and electronically signed by: DAV GONZALEZ MD on Aug 09 2023 5:42PM EST Thank you for allowing us to participate in the care of your patient. Should there be any questions regarding this interpretation, please call [phone]. If you are unable to reach us at the number above, please feel free to contact [facility] at [phone]. [facility] Study observation (narrative) [facility] XR Chest PA and LateralOrder ed By: [facility] Provider on 08-09-2023 [facility] BLOOD TB SCREENon 07-31-2023 M. tuberculosis tuberculin stim IFN-g Ql (Bld) Indeterminate Normal [facility] Comment on above: Order Comment: Speci men Type: BLOOD SPECIMENOrdering Facility: [facility] Address: [address] [place] [address] Performed By: #### I NFTBP ####[facility] [id number] [place] [address] [place] MITOGEN MINUS NIL 0.04 IU/mL Low >=0.50 [facility] Comment on above: Order Comment: Speci men Type: BLOOD SPECIMENOrdering Facility: [facility] Address: [address] [place] [address] Performed By: #### I NFTBP ####[facility] [id number] [place] [address] [place] TB GAMMA INTERPRETATION This result is indeterminate for Mycobacterium tuberculosis complex antigen responsiveness. Specimens from immunocompromised patients, those <5 years of age, and those with a known recent exposure may fall under this category. Please correlate with clinical picture and other alternative assessments. Normal [facility] Comment on above: Order Comment: Speci men Type: BLOOD SPECIMENOrdering Facility: [facility] Address: [address] [place] [address] Performed By: #### I NFTBP ####[facility] [id number] [place] [address] [place] TB NIL <0.00 Normal <=8.00 [facility] Comment on above: Order Comment: Speci men Type: BLOOD SPECIMENOrdering Facility: [facility] Address: [address] [place] [address] Performed By: #### I NFTBP ####[facility] [id number] [place] [address] [place] TB1 AG MINUS NIL <0.00 Normal <0.35 [facility] Comment on above: Order Comment: Speci men Type: BLOOD SPECIMENOrdering Facility: [facility] Address: [address] [place] [address] Performed By: #### I NFTBP ####[facility] LABIA [id number] [place] [address] [place] TB2 AG MINUS NIL <0.00 Normal <0.35 [facility] Comment on above: Order Comment: Speci men Type: BLOOD SPECIMENOrdering Facility: [facility] Address: [address] [place] [address] Performed By: #### I NFTBP ####[facility] [id number] [place] [address] [place] HBV core Ab Ser Qlon 024 HBV core Ab Ql (S) Negative Normal Negative [facility] Comment on above: Order Comment: Speci men Type: BLOOD SPECIMENOrdering Facility: [facility] Address: [address] [place] [address] Result Comment: No e vidence of current or past infection with Hepatitis B virus. Should recent infection be suspected, repeat testing may be considered 3-4 weeks after this draw. Performed By: #### 1 6933-4, 5195-3, 28506-9 ####[facility] LABIA [id number] [place] [address] [place] HBV surface Ab Ql (S)on 07-18 HBV surface Ab Qn (S) <8.00 Normal [facility] Comment on above: Order Comment: Speci men Type: BLOOD SPECIMENOrdering Facility: [facility] Address: [address] [place] [address] Result Comment: <8 m IU/mL: No serological evidence of immunity to Hepatitis B Virus. >/= 8 to <12 mIU/mL: No serological evidence of immunity to Hepatitis B Virus. >/= 12 mIU/mL: Consistent with serological evidence of immunity to Hepatitis B Virus. Performed By: #### 1 6933-4, 5195-3, 38374-1 ####[facility]CL[facility] [id number] [place] [address] [place] HBV surface Ab Ser Qlon 07-18 HBV surface Ab Ql (S) Negative Normal [facility] Comment on above: Order Comment: Speci men Type: BLOOD SPECIMENOrdering Facility: [facility] Address: [address] [place] [address] Result Comment: No s erological evidence of immunity to Hepatitis B Virus. Performed By: #### 1 6933-4, 5195-3, 63810-8 ####[facility] LABCL[facility] [id number] [address] [place] HBV surface Ag Ser Qlon 07-18 HBV surface Ag Ql (S) Negative Normal Negative [facility] Comment on above: Order Comment: Darci michael Type: BLOOD SPECIMENOrdering Facility: [facility] Address: [address] [place] [address] Performed By: #### 1 6933-4, 5195-3, 46957-5 ####[facility] [id number] [address] [place] HCV Ab Ser Qlon 07-31-2023 HCV Ab Ql (S) Negative Normal Negative [facility] Comment on above: Order Comment: Speci men Type: BLOOD SPECIMENOrdering Facility: [facility] Address: [address] [place] [address] Result Comment: The result suggests no evidence of active infection with Hepatitis C virus. Should recent infection be suspected, repeat testing may be considered 4-6 weeks after this draw. Performed By: #### 1 6128-1 ####[facility] LABCLIA [id number] [id number] [id number] [place] TPMT PHENOTYPE/ENZYME ACTIVI Kyung 07-31-2023 TPMT ACTIVITY 22.0 U/mL Low 24.0-44.0 [facility] Comment on above: Order Comment: Speclety michael Type: BLOOD SPECIMENOrdering Facility: [facility] Address: [address] [place] [address] [place] [address] Result Comment: INTE RPRETIVE INFORMATION: Thiopurine Methyltransferase, RBC Normal TPMT activity: 24.0-44.0 U/mL................Individuals are predicted to be at low risk of bone marrow toxicity (myelosuppression) as a consequence of standard thiopurine therapy; no dose adjustment is recommended. Intermediate TPMT activity: 17.0-23.9 U/mL................Individuals are predicted to be at intermediate risk of bone marrow toxicity (myelosuppression) as a consequence of standard thiopurine therapy; a dose reduction and therapeutic drug management is recommended. Low TPMT activity: less than 17.0 U/mL...........Individuals are predicted to be at high risk of bone marrow toxicity (myelosuppression) as a consequence of standard thiopurine dosing. It is recommended to avoid the use of thiopurine drugs. High TPMT activity: greater than 44.0 U/mL........Individuals are not predicted to be at risk for bone marrow toxicity (myelosuppression) as a consequence of standard thiopurine dosing, but may be at risk for therapeutic failure due to excessive inactivation of thiopurine drugs. Individuals may require higher than the normal standard dose. Therapeutic drug management is recommended. The TPMT, RBC assay is used as a screen to detect individuals with low and intermediate TPMT activity who may be at risk for myelosuppression when exposed to standard doses of thiopurines, including azathioprine (Imuran) and 6-mercaptopurine (Purinethol). TPMT is the primary metabolic route for inactivation of thiopurine drugs in the bone marrow. When TPMT activity is low, it is predicted that proportionately more 6-mercaptopurine can be converted into the cytotoxic 6-thioguanine nucleotides that accumulate in the bone marrow causing excessive toxicity. The activity of TPMT is measured by the nanomoles of 6-methylmercaptopurine (inactive metabolite) produced per 1 mL of packed red blood cells, (U/mL). TPMT phenotype testing does not replace the need for clinical monitoring of patients treated with thiopurine drugs. Genotype for TPMT cannot be inferred from TPMT activity (phenotype). Phenotype testing should not be requested for patients currently treated with thiopurine drugs. Current TPMT phenotype may not reflect future TPMT phenotype, particularly in patients who received blood transfusion within 30-60 days of testing. TPMT enzyme activity can be inhibited by several drugs such as: naproxen (Aleve), ibuprofen (Advil, Motrin), ketoprofen (Orudis), furosemide (Lasix), sulfasalazine (Azulfidine), mesalamine (Asacol), olsalazine (Dipentum), mefenamic acid (Ponstel), thiazide diuretics, and benzoic acid inhibitors. TPMT inhibitors may contribute to falsely low results; patients should abstain from these drugs for at least 48 hours prior to TPMT testing. Falsely low results may also occur as a result of inappropriate specimen handling and hemolysis. This test was developed and its performance characteristics determined by [facility]. It has not been cleared or approved by the [place] Food and Drug Administration. This test was performed in a CLIA certified laboratory and is intended for clinical purposes. Performed By: [facility] [address] [place] [address] Car Worker Helper: Refugio Manning MD, PhD [place] Number: [id number] Performed By: #### T PMT ####[facility] [id number] [place] [address] HISTORY PHYSICALon HISTORY PHYSICAL HNO ID: [id number] Author: JENARO CAVANAUGH MD Service: ? Author Type: Physician Type: H&P Filed: 07/25/2023 10:12 Note Text: Opened in error Normal [facility] Calprotectin (Stl) [Mass/Mas s]on 07-19-2023 CALPROTECTIN, FECAL INTERP Elevated Abnormal Normal [facility] Comment on above: Order Comment: Speci men Type: STOOL SPECIMENOrdering Facility: [facility] Address: [address] [place] [address] Result Comment: On 2022, [facility] [employer] implemented a new fecal calprotectin method, the [employer] L[employer] Calprotectin assay. For assistance with interpretation of results in patients undergoing serial monitoring, contact Client Services at [phone] or [phone] to discuss options, preferably within 7 days of issuing this report. Interpretation: <50.0 ug/g: Normal 50.0 ug/g - 120.0 ug/g: Borderline elevated. Re-evaluation in 4-6 weeks is recommended if clinically indicated. >120.0 ug/g: Elevated Performed By: #### 3 8445-3 ####[facility] LABCLIA [id number] [place] [address] [place] CALPROTECTIN, FECAL QUANTITATIVE 1410 ug/g High <50 [facility] Comment on above: Order Comment: Speci men Type: STOOL SPECIMENOrdering Facility: [facility] Address: [address] [place] [address] Performed By: #### 3 8445-3 ####[facility] LABCLIA [id number] [place] [address] [place] ANES POSTPROC EVALon 024 ANES POSTPROC EVAL HNO ID: [id number] Author: SON GE MD Service: ? Author Type: Anesthesiologist Type: Anesthesia Postprocedure Evaluation Filed: 07/18/2023 16:33 Note Text: POST ANESTHESIA EVALUATION NOTE : 2000 Procedure Summary Date: 07/18/23 Room / Location: Gastroenterology Anesthesia Start: 1452 Anesthesia Stop: 1523 Procedure: COLONOSCOPY DIAGNOSTIC Diagnosis: Rectal bleeding IBD (inflammatory bowel disease) (Chronic diarrhea) Scheduled Providers: Chris Mckeon MD; Son Ge MD; Edwin Toney APRN.YOUTH MANAGER Responsible Provider: Son Ge MD Anesthesia Type: MAC ASA Status: 2 Anesthesia Type: MAC Last Vitals Vitals Value Taken Time BP 103/67 07/18/23 1550 Temp 36.5 ?C (97.7 ?F) 07/18/23 1521 HR SpO2 94 07/18/23 1553 Resp 16 07/18/23 1550 SpO2 99 % 07/18/23 1553 Vitals shown include unfiled device data. Post Anesthesia Patient Status Patient Evaluation: PACU. PACU/ICU Patient Condition: stable. Anticipated Disposition: phase 2 then home. Neurological Status: aware and responsive. Pulmonary Status: breathing comfortably on room air Airway Control: returned to baseline unsupported. Cardiovascular Status: stable. Pain Management: clinically adequate Postoperative Hydration: acceptable. Intraoperative Events: no significant anesthesia events Post Operative Nausea/Vomiting Status: no significant post operative nausea or vomiting Recommendation: continue current plan of care. SIGNATURE: Son Ge MD PATIENT NAME: Christina Borjas DATE: July 18, 2023 TIME: 4:33 PM CSN: [id number] Normal [facility] ANES PRE-OPon 07-18-2023 ANES PRE-OP HNO ID: [id number] Author: SON GE MD Service: ? Author Type: Anesthesiologist Type: Anesthesia Preprocedure Evaluation Filed: 07/18/2023 13:57 Note Text: ANESTHESIOLOGY DAY OF SURGERY NOTE : 2000 Procedure Information Date/Time: 07/18/23 1500 Scheduled providers: Chris Mckeon MD; Son Ge MD; Edwin Toney APRN.YOUTH MANAGER Procedure: COLONOSCOPY DIAGNOSTIC Location: Gastroenterology Estimated body mass index is 24.86 kg/m? as calculated from the following: Height as of 07/16/23: 167.6 cm (5' 6 ). Weight as of 07/16/23: 69.9 kg (154 lb). Most recent hematocrit and potassium results: Hematocrit 32.0 07/09/2023 Potassium 3.6 07/09/2023 Relevant Problems No relevant active problems I - PHYSICAL EVALUATION AIRWAY Patient intubated: No. Tracheostomy tube not present Mallampati: I. TM distance: >3 FB. Neck ROM: full ROM without neurological symptoms. Mouth opening: adequate. Short neck: no. Thick neck: no DENTAL Dental findings: teeth intact. II - ANESTHESIA PLAN ASA Score: 2 Anesthetic Plan: MAC NPO Status: adequate Beta Anel Monitoring Plan Monitoring plan: standard ASA. Post Procedure Analgesic Plan Postoperative analgesic plan: per surgical service. Informed Consent Anesthetic risks, benefits, alternatives, personnel and consent discussed: yes. Patient / Responsible Libertarian agrees to proceed: yes Patient / Surrogate agrees to blood products: blood products not planned DNR status not reviewed with patient and/or family prior to surgery. Significant changes in the patient condition since the History and Physical, not otherwise documented in primary service progress note: no. No vitals data found for the desired time range. Outpatient Medications as of 07/18/2023 Medication Sig - amoxicillin-clavulanat e potassium (AUGMENTIN) 875-125 mg per tablet Take 1 tablet by mouth every 12 hours. - dicyclomine (BENTYL) 10 mg capsule Take 1 capsule by mouth before meals and at bedtime. - ferrous sulfate 325 mg (65 mg iron) tablet Take 1 tablet by mouth two times a day. No current facility-administered medications on file as of 07/18/2023. I have interviewed and examined the patient. I have reviewed the medical record and/or the pre-anesthesia evaluation, pertinent labs, and test results. This contains updated information obtained within 48 hours of Surgery/Procedure. SIGNATURE: Son Ge MD PATIENT NAME: Christina Borjas DATE: July 18, 2023 TIME: 1:56 PM CSN: [id number] Normal [facility] Colonoscopyon 07-18-2023 Colonoscopy Q3 Patient Name: Christina Borjas Procedure Date: 07/18/2023 2:54 PM Date of : 2000 Admit Type: Outpatient Age: 23 Gender: Female Note Status: Finalized Attending MD: Chris Mckeon MD, [id number] Procedure: Colonoscopy Indications: Chronic diarrhea, Hematochezia Providers: Chris Mckeon MD, Josie Christensen MD (Fellow) Patient Profile: This is a 23 year old female. Refer to note in patient chart for documentation of history and physical. Last Colonoscopy: 2022. Referring Physician: Dalton Mark (pa) (Referring ) Medicines: Midazolam mg IV, Monitored Anesthesia Care Complications: No immediate complications. Requesting Provider: Procedure: Pre-Anesthesia Assessment: - Prior to the procedure, a History and Physical was performed, and patient medications, allergies and sensitivities were reviewed. The patient's tolerance of previous anesthesia was reviewed. - The risks and benefits of the procedure and the sedation options and risks were discussed with the patient. All questions were answered and informed consent was obtained. - Patient identification and proposed procedure were verified prior to the procedure by the physician, the nurse and the senior program planner. The procedure was verified in the pre-procedure area in the procedure room. - ASA Grade Assessment: II - A patient with mild systemic disease. After I obtained informed consent, the scope was passed under direct vision. Throughout the procedure, the patient's blood pressure, pulse, and oxygen saturations were monitored continuously. The Colonoscope was introduced through the anus and advanced to the terminal ileum. The colonoscopy was performed without difficulty. The patient tolerated the procedure well. The quality of the bowel preparation was good. The terminal ileum, ileocecal valve, appendiceal orifice, and rectum were photographed. Moderate Sedation: MAC anesthesia was administered by the anesthesia team. Findings: The perianal and digital rectal examinations were normal. The terminal ileum appeared normal. This was biopsied with a cold forceps for histology. Inflammation was found in a continuous and circumferential pattern from the rectum to the ascending colon. This was graded as De Score 3 (severe, with spontaneous bleeding, ulcerations) mainly in the left colon and rectum. De 2 Biopsies were taken with a cold forceps for histology. Inflammation was found in a continuous and circumferential pattern from the splenic flexure to the ascending colon. This was graded as De Score 2 (moderate, with marked erythema, absent vascular pattern, friability, erosions). Biopsies were taken with a cold forceps for histology. Cecal patch was seen. Impression: - Patient exam was overall suggestive of extensive ulcerative colitis. - The examined portion of the ileum was normal. Biopsied. - Severe (De Score 3) ulcerative colitis in rectum and left colon. Biopsied. - Moderately active (De Score 2) ulcerative colitis from the splenic flexure to the ascending colon. Biopsied. - Cecal patch was seen. Estimated Blood Loss: Estimated blood loss: none. Recommendation: - Discharge patient to home (ambulatory). - Resume previous diet. - Continue present medications. - Await pathology results. - Repeat colonoscopy for surveillance based on pathology results. - See in clinic with 1-2 week to discuss starting advanced therapy. - Will order pre-biologic therapy. - Patient has a contact number available for emergencies. The signs and symptoms of potential delayed complications were discussed with the patient. Return to normal activities tomorrow. Written discharge instructions were provided to the patient. Procedure Code(s): --- Professional --- 31434, GC, Colonoscopy, flexible; with biopsy, single or multiple Diagnosis Code(s): --- Professional --- K51.90, Ulcerative colitis, unspecified, without complications K52.9, Noninfective gastroenteritis and colitis, unspecified K92.1, Melena (includes Hematochezia) CPT copyright 2020 [employer]. All rights reserved. Attending Participation: I was present and participated during the entire procedure, including non-lopez portions. Scope In: 2:58:17 PM Scope Out: 3:13:04 PM MD Chris Albarran MD 07/18/2023 3:24:54 PM This report has been signed electronically by Chris Mckeon MD Number of Addenda: 0 Note Initiated On: 07/18/2023 2:54 PM Normal [facility] HISTORY PHYSICALon HISTORY PHYSICAL HNO ID: [id number] Author: JOSIE CHRISTENSEN MD Service: Gastroenterology Author Type: Fellow Type: H&P Filed: 07/18/2023 14:20 Note Text: HISTORY AND PHYSICAL Christina Borjsa, 23 year old female Current history and physical on file: Yes Is a new History and Physical required for today's visit? Yes Indication for procedure: diarrhea and rectal bleeding PROCEDURE(S) SCHEDULED FOR: Colonoscopy with or without biopsies and with or without removal of polyps or lesions, dilation (any means), treatment of bleeding (any means), based on clinical findings. BASELINE BEHAVIOR: Calm BASELINE ORIENTATION: A AND O x3 All medications and allergies reviewed: Yes Skin Assessment: Warm dry mucus membranes pink Airway/Respiratory Assessment: Airway: visualization of the uvula- Yes Mouth: opening greater than 2 fingerbreadths- Yes Neck: full range of motion- Yes Breath sounds clear/equal- Yes Cardiac Assessment: Regular rate and rhythm without murmur Abdominal Assessment: Abdomen soft, non-tender, no masses or organomegaly. Sedation Plan: MAC Additional Comments: None Josie Christensen MD Normal [facility] SURGICAL PATHOLOGYon 024 CASE REPORT Normal [facility] Comment on above: Order Comment: Speci men Type: TISSUE SPECIMENOrdering Facility: [facility] Address: [address] [place] [address] Result Comment: Surg ical Pathology Report Case: [id number] Authorizing Provider: Chris Mckeon MD Collected: 07/18/2023 03:04 PM Ordering Location: Gastroenterology Received: 07/18/2023 06:27 PM Pathologist: Dimitri Lindquist MD, PhD Specimens: A) - ILEUM BIOPSY, ileum Bx, Hx rectal bleeding R/O IBD and CMV B) - CECUM BIOPSY, cecum Bx, Hx rectal bleeding R/O IBD and CMV C) - ASCENDING COLON BIOPSY, Ascending colon Bx, Hx rectal bleeding R/O IBD and CMV D) - TRANSVERSE COLON BIOPSY, transverse colon Bx, Hx rectal bleeding R/O IBD and CMV E) - COLON LEFT BIOPSY, Left colon Bx, Hx rectal bleeding r/o IBD and CMV F) - RECTAL BIOPSY, Rectum Bx, Hx rectal bleeding r/o IBD and CMV Performed By: #### S ####[facility] LABCLIA [id number] [place] [address] [place] DIAGNOSIS COMMENT Normal [facility] Comment on above: Order Comment: Roberti alec Type: TISSUE SPECIMENOrdering Facility: [facility] Address: [address] [place] [address] Result Comment: B-F. The histologic sections demonstrate patchy active colitis throughout the colon. However, features of chronic mucosal injury are not very significant, with only mild crypt architectural distortion and rare Paneth cell metaplasia in the rectum. The clinical concern of inflammatory bowel disease is noted. Overall, the findings in this biopsies are nonspecific but can still be compatible with inflammatory bowel disease in the right clinical setting if other etiologies (such as infection and chronic drug-induced mucosal injury) can be clinically excluded. Clinical correlation is necessary. Given the presence of ulceration, a CMV immunohistochemical stain has been performed on block E2 and reveals no evidence of CMV viral inclusions in this material. Laboratory Developed Test (LDT) Disclaimer: Performance characteristics of immunohistochemical, immunofluorescent and chromogenic in-situ hybridization tests have been determined by the performing laboratory within [facility]???s [facility] Pathology and Laboratory Medicine [place] ([facility], [facility], [facility], [facility], [facility], [facility], or [facility]) in a manner consistent with CLIA requirements. One or more of these tests have not been cleared or approved by the FDA. [facility] is regulated under CLIA as qualified to perform high-complexity testing. These tests are used for clinical purposes. They should not be regarded as investigational or for research. Positive and negative controls stain appropriately. Performed By: #### S ####[facility] LABCLIA [id number] [address] OF [facility] FINAL DIAGNOSIS Normal [facility] Comment on above: Order Comment: Speci men Type: TISSUE SPECIMENOrdering Facility: [facility] Address: [address] [place] [address] Result Comment: A. T erminal ileum, biopsy: - Small intestinal mucosa with no significant diagnostic abnormality. B. Colon, cecum, biopsy: - Focal active colitis (see comment). - No evidence of granulomas or dysplasia. C. Colon, ascending, biopsy: - Patchy active colitis (see comment). - No evidence of granulomas or dysplasia. D. Colon, transverse, biopsy: - Patchy active colitis (see comment). - No evidence of granulomas or dysplasia. E. Colon, left, biopsy: - Active colitis with ulceration (see comment). - No evidence of granulomas or dysplasia. F. Rectum, biopsy: - Active colitis (see comment). - No evidence of granulomas or dysplasia. Performed By: #### S ####[facility] LABCLIA [id number] [address] OF [facility] FINAL PERFORMING LAB Normal [facility] Comment on above: Order Comment: Speci men Type: TISSUE SPECIMENOrdering Facility: [facility] Address: [address] [place] [address] Result Comment: Diag nostic interpretation performed at [facility], [address] [place] [address] CLIA# [id number] Car Worker Helper: Mahin Moore M.D. Performed By: #### S ####[facility] [id number] [place] [address] [place] GROSS DESCRIPTION A. ILEUM BIOPSY Normal Cl [facility] Comment on above: Order Comment: Speci men Type: TISSUE SPECIMENOrdering Facility: [facility] Address: [address] [place] [address] Result Comment: Rece ived in formalin are two pieces of thomas, soft tissue aggregating to 0.9 x 0.3 x 0.2 cm. Totally submitted in one cassette. B. CECUM BIOPSY Received in formalin are multiple pieces of thomas, soft tissue aggregating to 1.4 x 0.2 x 0.2 cm. Totally submitted in one cassette. C. ASCENDING COLON BIOPSY Received in formalin are multiple pieces of thomas, soft tissue aggregating to 1.0 x 0.2 x 0.2 cm. Totally submitted in one cassette. D. TRANSVERSE COLON BIOPSY Received in formalin are multiple pieces of tohmas, soft tissue aggregating to 1.1 x 0.2 x 0.2 cm. Totally submitted in one cassette. E. COLON LEFT BIOPSY Received in formalin are multiple pieces of thomas-white to thomas-brown, soft tissue aggregating to 0.8 x 0.4 x 0.2 cm. Totally submitted in two cassettes. F. RECTAL BIOPSY Received in formalin are two pieces of thomas, soft tissue aggregating to 0.8 x 0.3 x 0.2 cm. Totally submitted in one cassette. DB July 18, 2023 10:36 PM Gross examination performed at [facility], [address] [place] [address] Performed By: #### S ####[facility] [id number] [address] [place] CNOVon 07-16-2023 CNOV Office Visit (GASTMN ) CHRISTINA BORJAS ([id number]) 2 F Date Time Provider Department 07/16/23 2:30 PM DALTON MARK During your visit today, we recorded the following information about you: Temperature Pulse Blood pressure Weight 98.3 degrees 97/minute 110/72 69.9 kg Height 1.676 m Dalton Mark PA-C 07/17/2023 12:48 PM Signed New Patient Visit SUBJECTIVE 23 year old female presents today as new patient due to concern for IBD HPI: Has had bleeding for several years had a Sigmoidoscopy locally in 06/2022 which was overall normal. Then over the last two months with more frequency. With 7-10 BMs daily blood in the stool. Has cramping no real urgency or incontinence. Nocturnal defecation 1-2 times a night at least. Some nausea currently on Amoxicillin due to colonic inflammation prescribed by ER. Some loss of appetite has lost 4-5 lbs over the last week due to decreased appetite Was on Canasa a year ago with relief tried again this year for a month with no relief No EIMs. Energy level is a little low No family hx No tobacco, Alcohol, NSAID No Recent Travel change in diet or medication no recent viral illness an no sick contact CT 07/13/23 IMPRESSION: Diffuse colonic wall thickening from the distal sigmoid colon to the mid ascending colon consistent patient's history of ulcerative colitis. Small pelvic free fluid. No obstruction. No pneumoperitoneum. CBC: WBC (k/uL) Date Value 07/09/2023 7.29 Hematocrit (%) Date Value 07/09/2023 32.0 (L) MCV (fL) Date Value 07/09/2023 89.4 Platelet Count (k/uL) Date Value 07/09/2023 473 (H) Lymphocytes % (%) Date Value 07/09/2023 24.8 Hepatic Function Panel: Albumin (g/dL) Date Value 07/09/2023 3.8 (L) Bilirubin, Total (mg/dL) Date Value 07/09/2023 0.4 Alkaline Phosphatase (U/L) Date Value 07/09/2023 63 AST (U/L) Date Value 07/09/2023 16 ALT (U/L) Date Value 07/09/2023 9 Protein, Total (g/dL) Date Value 07/09/2023 6.6 Current Clinical Symptoms # of bowel movements daily: 7-10 # of liquid stools daily: most Consistency: loose Bloody bowel movements: yes Urgency: yes Abdominal pain: yes Abdominal distention: yes Nausea/vomiting: no Weight loss over last 3 months: no General well-being: poor Current Outpatient Medications Medication Sig Dispense Refill amoxicillin-clavulanat e potassium (AUGMENTIN) 875-125 mg per tablet Take 1 tablet by mouth every 12 hours. ferrous sulfate 325 mg (65 mg iron) tablet Take 1 tablet by mouth two times a day. 180 tablet 0 No current facility-administered medications for this visit. ALLERGIES No Known Allergies PHYSICAL EXAMINATION BP 110/72 Pulse 97 Temp (Src) 98.3 (Temporal) Ht 5' 6 (1.68m) Wt 154 lb (69.9kg) SpO2 99% LMP 07/08/2023 BMI 24.87 kg/(m2). General Appearance: alert, oriented x 3, pleasant and in no acute distress Heart:regular rate and rhythm, no murmurs or gallops Abdomen: Not distended. Normal bowel sounds. Soft and tender to RLQ. No masses or organomegaly. Skin: no rashes or lesions Lymph:No cervical, axillary, supraclavicular, or inguinal adenopathy. Assessment IMPRESSION Ms. Borjas is a 23-year-old female who presents today to establish care for possible inflammatory bowel disease. Of note she has had bleeding for several years and had a colonoscopy and sigmoidoscopy in the past locally which were normal. Over the last 2 months started having more frequency with 7-10 bowel movements daily blood in the stool cramping some urgency no incontinence. Nocturnal defecation 1-2 times a night with some nights being worse. Has some nausea. Of note currently on amoxicillin as an outside CT revealed inflammation in the colon in the ER started her on antibiotics that she is now stopping as she notes it makes her feel worse. She has a decreased appetite and feels like she has lost some weight around 4 to 5 pounds. Was on Canasa about a year ago with some relief but tried again earlier this year with no relief. No extraintestinal manifestations but does have low energy level. Of note no family history of inflammatory bowel disease or GI cancers no tobacco stopped patient is on no NSAIDs. No recent travel or change in diet or medication and no recent sick contacts or any other viral illnesses. I discussed planning to get a fecal calprotectin as well as a colonoscopy with TI intubation to help rule out inflammatory bowel disease. Will use Bentyl for the cramping. If her fecal Ora is elevated we will plan to start budesonide to see if this helps. Will plan follow-up after colonoscopy to decide further intervention. PLAN Fecal ora Colonoscopy with TI intubation and biopsies to evaluated from Crohn's, UC, Microscopic colitis Bentyl for cramping May benefit from Budesonide/prednisone pending fecal ora Plan foll (more content not included)... Normal [facility] CNOV Office Visit (JEAN ) CHRISTINA BORJAS ([id number]) 2 F Date Time Provider Department 07/16/23 1:00 PM JENARO CAVANAUGH During your visit today, we recorded the following information about you: Temperature Pulse Blood pressure Weight 97.7 degrees 83/minute 116/72 71.2 kg Height Last Period 1.676 m 07/08/23 Jenaro Cavanaugh MD 07/25/2023 10:12 AM Signed Opened in error Referring Provider: JESSICA DAWSON [[id number]] Allergies As of Date: 07/16/2023 (No Known Allergies) Date Reviewed: 07/16/2023 Reviewed by: Davey Goetz Ma - Fully Assessed Reason for Visit: Consult [173] Visit Diagnosis:OPENED IN ERROR Order(s):CONSULT TO GASTROENTEROLOGY [9010] Order #: [id number]: 1 Prescriptions as of 07/25/2023 - predniSONE (DELTASONE) 5 mg tablet Take 8 tablets by mouth once daily for 7 days, THEN 7 tablets once daily for 7 days, THEN 6 tablets once daily for 7 days, THEN 5 tablets once daily for 7 days, THEN 4 tablets once daily for 7 days, THEN 3 tablets once daily for 7 days, THEN 2 tablets once daily for 7 days, THEN 1 tablet once daily for 7 days. - amoxicillin-clavulanat e potassium (AUGMENTIN) 875-125 mg per tablet Take 1 tablet by mouth every 12 hours. - dicyclomine (BENTYL) 10 mg capsule Take 1 capsule by mouth before meals and at bedtime. - ferrous sulfate 325 mg (65 mg iron) tablet Take 1 tablet by mouth two times a day. Problem List As Of Date: 07/16/2023 (None) Encounter Status:Closed by JENARO CAVANAUGH on 07/25/23 Normal [facility] Alanine aminotransferase [En zymatic activity/volume] in Serum or PlasmaOrdered By: Mahad Bishop on 07-13-2023 ALT [Catalytic activity/Vol] 9 U/L 752 [facility] Albumin [Mass/volume] in Ser um or Plasma by Bromocresol green (BCG) dye binding methoOrdered By: Mahad Bishop on 07-13-2023 Albumin BCG dye [Mass/Vol] 3.9 g/dL 3.5-5.7 [facility] Alkaline phosphatase [Enzyma tic activity/volume] in Serum or PlasmaOrdered By: Mahad Bishop on 07-13-2023 ALP [Catalytic activity/Vol] 64 U/L 34-104 [facility] Aspartate aminotransferase [ Enzymatic activity/volume] in Serum or PlasmaOrdered By: Mahad Bishop on 07-13-2023 AST [Catalytic activity/Vol] 13 U/L 13-39 [facility] Basic Metabolic Panelon 06-18 Anion gap [Moles/Vol] 10.1 mmol/L Normal 6.0-15.0 [facility] Comment on above: Performed By: #### H EPATIC, BMP, ESR, LIPASE, CRP #### [facility] [address] Calcium [Mass/Vol] 9.2 mg/dL Normal 8.6-10.3 [facility] Comment on above: Performed By: #### H EPATIC, BMP, ESR, LIPASE, CRP #### [facility] [address] [place] [address] [place] Chloride [Moles/Vol] 102 mmol/L Normal 98-[address] [facility] Comment on above: Performed By: #### H EPATIC, BMP, ESR, LIPASE, CRP #### [facility] [address] CO2 [Moles/Vol] 27.9 mmol/L Normal 21.0-31.0 [facility] Comment on above: Performed By: #### H EPATIC, BMP, ESR, LIPASE, CRP #### [place] [address] Creatinine [Mass/Vol] 0.69 mg/dL Normal 0.60-1.20 [facility] Comment on above: Performed By: #### H EPATIC, BMP, ESR, LIPASE, CRP #### [facility] [address] [place] [address] [place] Creatinine Clr Calc Pharmacy 130.06 [facility] Comment on above: Performed By: #### H EPATIC, BMP, ESR, LIPASE, CRP #### [place] [address] [place] [address] [place] GFR/1.73 sq M.predicted MDRD (S/P/Bld) [Vol rate/Area] mL/min/{1.73_m2} [facility] Comment on above: Performed By: #### H EPATIC, BMP, ESR, LIPASE, CRP #### [facility] [address] [place] [address] [place] Glucose [Mass/Vol] 105 mg/dL High 70-100 [facility] Comment on above: Result Comment: [place] Glucose Reference Range is dependent on time and content of last meal. Glucose of more than 200 mg/dL in a nonstressed, ambulatory subject supports the diagnosis of Diabetes Mellitus. ADA recommended reference range Performed By: #### H EPATIC, BMP, ESR, LIPASE, CRP #### [place] [address] Potassium [Moles/Vol] 4.0 mmol/L Normal 3.5-5.1 [facility] Comment on above: Performed By: #### H EPATIC, BMP, ESR, LIPASE, CRP #### [facility] [address] [place] [address] [place] Sodium [Moles/Vol] 136 mmol/L Normal 136-145 [facility] Comment on above: Performed By: #### H EPATIC, BMP, ESR, LIPASE, CRP #### [facility] [address] [place] [address] [place] Urea nitrogen [Mass/Vol] 4 mg/dL Low 7-25 [facility] Comment on above: Performed By: #### H EPATIC, BMP, ESR, LIPASE, CRP #### [facility] [address] Basophils Auto (Bld) [#/Vol] Ordered By: Mahad iBshop on 07-13-2023 Basophils (Bld) [#/Vol] 0.0 10*3/uL 0.0-0.2 [facility] Basophils/100 WBC Auto (Bld) Ordered By: Mahad Bishop on 07-13-2023 Basophils/100 WBC (Bld) 0.4 % . [facility] Bilirubin Test strip Ql (U)O rdered By: Mahad Bishop on 07-13-2023 Bilirubin Ql (U) Negative Negative [facility] Bilirubin.direct [Mass/volum e] in Serum or PlasmaOrdered By: Mahad Bishop on 07-13-2023 Bilirubin.direct [Mass/Vol] 0.10 mg/dL 0.03-0.18 [facility] Bilirubin.total [Mass/volume ] in Serum or PlasmaOrdered By: Mahad Bishop on 07-13-2023 Bilirubin [Mass/Vol] 0.4 mg/dL 0.3-1.[address] [facility] C reactive protein [Mass/vol ume] in Serum or PlasmaOrdered By: Mahad Bishop on 07-13-2023 CRP [Mass/Vol] 0.9 mg/dL 0.0-0.5 [facility] C-Reactive Proteinon 024 C-Reactive Protein 0.9 mg/dL High 0.0-0.5 [facility] Comment on above: Result Comment: PERF ORMED BY: [place] [address] PATHOLOGIST PRODUCT SUPPORT MANAGER MARTA OVALLES M.D. Performed By: #### H EPATIC, BMP, ESR, LIPASE, CRP #### [address] abdomen pelvis w conon CT abdomen pelvis w con [facility] [place] [address] [place] [address] CT Scan Report Signed Patient: Christina Borjas MR#: [id number] 53 : 2000 Acct:[id number] Age/Sex: 23 / F ADM Date: 07/13/23 Loc: ER Room: Type: [facility] ER Attending Dr: Copies to: Mahad Bishop PA-C Ordering Provider: Mahad Bishop PA-C Date of Service: 07/13/23 CT/CT abdomen pelvis w con: Abdominal Pain CT Abdomen and Pelvis withcontrast TECHNIQUE: Axial imaging with 2-D reconstruction.90 cc of Isovue-300. The CT exam was performed using one or more the following dose reduction techniques: Automated exposure control, adjustment of the MA and/or Kv according to patient size, or use of the iterative reconstruction technique. COMPARISON: None History: Abdominal pain and diarrhea for months. History of ulcerative colitis LIMITATIONS: None LOWER THORAX Unremarkable LIVER: Unremarkable GALLBLADDER: No gallbladder abnormality identified. BILE DUCTS: No dilatation SPLEEN: Unremarkable PANCREAS: Unremarkable ADRENAL GLANDS: Unremarkable KIDNEYS:Unremarkable AORTA: No abdominal aortic aneurysm identified. RETROPERITONEUM: No significant retroperitoneal abnormalities identified. MESENTERY:Unremarkable SMALL BOWEL: The small bowel loops are nondistended. APPENDIX: The appendix is normal. COLON: Diffuse wall thickening of the abdomen from the mid ascending to the distal sigmoid colon. This may correspond patient's history of ulcerative colitis. No obstruction. URINARY BLADDER: Urinary bladder is unremarkable. REPRODUCTIVE SYSTEM: Reproductive structures are unremarkable. PNEUMOPERITONEUM: None PERITONEAL FLUID:Small amount of free fluid in the pelvis. BONY STRUCTURES: Unremarkable ABDOMINAL WALL: Unremarkable CT/CT abdomen pelvis w con IMPRESSION: Diffuse colonic wall thickening from the distal sigmoid colon to the mid ascending colon consistent patient's history of ulcerative colitis. Small pelvic free fluid. No obstruction. No pneumoperitoneum. Impression dictated by: Terry Sánchez M.D.07/13/2023 6:32 PM Dictation Location: [place] [address] Transcribed By: [facility] 07/13/231831 Dictated By: Terry Sánchez DO 07/13/231828 Signed By: 07/13/231831 Normal [facility] Calcium [Mass/volume] in Ser um or PlasmaOrdered By: Mahad Bishop on 07-13-2023 Calcium [Mass/Vol] 9.2 mg/dL 8.6-10.3 [facility] Carbon dioxide, total [Moles /volume] in Serum or PlasmaOrdered By: Mahad Bishop on 07-13-2023 CO2 [Moles/Vol] 27.9 mmol/L 21.0-31.0 [facility] Chloride [Moles/volume] in S demetra or PlasmaOrdered By: Mahad Bishop on 07-13-2023 Chloride [Moles/Vol] 102 mmol/L 98-[address] [facility] Color Auto (U)Ordered By: Prosper Bishop on 07-13-2023 Color (U) Yellow Yellow [facility] Complete Blood Count Auto Di ffon 07-13-2023 Basophils (Bld) [#/Vol] 0.0 10*3/uL Normal 0.0-0.2 [facility] Comment on above: Result Comment: PERF ORMED BY: [facility] [facility] [place] [id number] PATHOLOGIST PRODUCT SUPPORT MANAGER MARTA OVALLES M.D. Performed By: #### C BC ####[place] [id number] [address] Basophils/100 WBC (Bld) 0.4 % Normal . [facility] Comment on above: Performed By: #### C BC ####[place] [id number] [place] [id number] [facility] Eosinophils (Bld) [#/Vol] 0.4 10*3/uL Normal 0.0-0.45 [facility] Comment on above: Performed By: #### C BC ####[facility] [address] Eosinophils/100 WBC (Bld) 4.0 % Normal . [facility] Comment on above: Performed By: #### C BC ####[address] Erythrocyte distribution width (RBC) [Ratio] 12.4 % Normal 11.9-15.3 [facility] Comment on above: Performed By: #### C BC ####[address] Hematocrit (Bld) [Volume fraction] 33.0 % Low 34.0-46.4 [facility] Comment on above: Performed By: #### C BC ####[address] Hemoglobin (Bld) [Mass/Vol] 11.4 g/dL Low 11.8-15.4 [facility] Comment on above: Performed By: #### C BC ####[address] Lymphocytes (Bld) [#/Vol] 1.7 10*3/uL Normal 1.00-4.8 [facility] Comment on above: Performed By: #### C BC ####[address] Lymphocytes/100 WBC (Bld) 15.4 % Normal . [facility] Comment on above: Performed By: #### C BC ####[address] MCH (RBC) [Entitic mass] 30.2 pg Normal 24.7-34.3 [facility] Comment on above: Performed By: #### C BC ####[address] MCV (RBC) [Entitic vol] 87.1 fL Normal 80-[address] [facility] Comment on above: Performed By: #### C BC ####[address] Mean Corpuscular HGB Conc 34.7 g/dL Normal 32.0-35.0 [facility] Comment on above: Performed By: #### C BC ####[place] [id number] [facility] Monocytes (Bld) [#/Vol] 0.8 10*3/uL Normal 0.0-0.8 [facility] Comment on above: Performed By: #### C BC ####[address] [address] [facility] Monocytes/100 WBC (Bld) 19.27 % Normal 0.00-20.[address] [facility] Comment on above: Performed By: #### C BC ####[place] [id number] [facility] Monocytes/100 WBC (Bld) 7.5 % Normal . [facility] Comment on above: Performed By: #### C BC ####[place] [id number] [facility] Neutrophils (Bld) [#/Vol] 7.8 10*3/uL High 1.8-7.7 [facility] Comment on above: Performed By: #### C BC ####[place] [id number] [facility] Neutrophils/100 WBC (Bld) 72.7 % Normal . [facility] Comment on above: Performed By: #### C BC ####[place] [id number] [facility] NRBC% 0.1 /100{WBC} Normal 0-0.5 [facility] Comment on above: Performed By: #### C BC ####[address] [address] [facility] Platelet mean volume (Bld) [Entitic vol] 6.7 fL Normal 6.3-10.7 [facility] Comment on above: Performed By: #### C BC ####[address] [address] [facility] Platelets (Bld) [#/Vol] 625 10*3/uL High 150-450 [facility] Comment on above: Performed By: #### C BC ####[place] RBC (Bld) [#/Vol] 3.79 10*6/uL Normal 3.60-5.00 [facility] Comment on above: Performed By: #### C BC ####[place] WBC (Bld) [#/Vol] 10.7 10*3/uL Normal 3.8-11.6 [facility] Comment on above: Performed By: #### C BC ####[place] [address] [address] Creatinine [Mass/volume] in Serum or PlasmaOrdered By: Mahad Bishop on 07-13-2023 Creatinine [Mass/Vol] 0.69 mg/dL 0.60-1.20 [facility] Eosinophils Auto (Bld) [#/Vo l]Ordered By: Mahad Bishop on 07-13-2023 Eosinophils (Bld) [#/Vol] 0.4 10*3/uL 0.0-0.45 [facility] Eosinophils/100 WBC Auto (Bl d)Ordered By: Mahad Bishop on 07-13-2023 Eosinophils/100 WBC (Bld) 4.0 % . [facility] Erythrocyte Sedimentation Ra torie 07-13-2023 ESR (Bld) [Velocity] 27 mm/h High 0-[address] [facility] Comment on above: Result Comment: PERF ORMED BY: [facility] [address] [facility] [place] [address] PATHOLOGIST PRODUCT SUPPORT MANAGER MARTA OVALLES M.D. Performed By: #### H EPATIC, BMP, ESR, LIPASE, CRP #### [address] Erythrocyte distribution wid th Auto (RBC) [Ratio]Ordered By: Mahad Bishop on 07-13-2023 Erythrocyte distribution width (RBC) [Ratio] 12.4 % 11.9-15.3 [facility] Erythrocyte sedimentation ra te by Photometric methodOrdered By: Mahad Bishop on 07-13-2023 ESR Photometric method (Bld) [Velocity] 27 mm/hr 0-19 [facility] Globulin Calc (S) [Mass/Vol] Ordered By: Mahad Bishop on 07-13-2023 Globulin (S) [Mass/Vol] 2.9 g/dL [facility] Glucose [Mass/volume] in Ser um or PlasmaOrdered By: Mahad Bishop on 07-13-2023 Glucose [Mass/Vol] 105 mg/dL 70-100 [facility] Comment on above: ADA recommended refe rence rangeRandom Glucose Reference Range is dependent on time and content of last meal. Glucose of more than 200 mg/dL in a nonstressed, ambulatory subject supports the diagnosis of Diabetes Mellitus. HCG ( test) IA.rapi d Ql (U)Ordered By: Mahad Bishop on 07-13-2023 HCG ( test) Ql (U) Negative [facility] HCG,Urineon 07-13-2023 Beta HCG ( test) Ql (U) Negative Normal [facility] Comment on above: Order Comment: Name Collection Type:: Clean-Voided Midstream Result Comment: PERF ORMED BY: [place] [address] PATHOLOGIST PRODUCT SUPPORT MANAGER MARTA OVALLES M.D. Performed By: #### U A, CG #### [facility] [address] [place] [address] Hematocrit Auto (Bld) [Volum e fraction]Ordered By: Mahad Bishop on 07-13-2023 Hematocrit (Bld) [Volume fraction] 33.0 % 34.0-46.4 [facility] Hemoglobin [Mass/volume] in BloodOrdered By: Mahad Bishop on 07-13-2023 Hemoglobin (Bld) [Mass/Vol] 11.4 g/dL 11.8-15.4 [facility] Hepatic Panelon 07-13-2023 Albumin [Mass/Vol] 3.9 g/dL Normal 3.5-5.7 [facility] Comment on above: Performed By: #### H EPATIC, BMP, ESR, LIPASE, CRP #### [facility] [address] [place] [address] Albumin/Globulin [Mass ratio] 1.3 {ratio} Normal [facility] Comment on above: Performed By: #### H EPATIC, BMP, ESR, LIPASE, CRP #### [address] ALP [Catalytic activity/Vol] 64 U/L Normal 34-104 [facility] Comment on above: Performed By: #### H EPATIC, BMP, ESR, LIPASE, CRP #### [address] ALT [Catalytic activity/Vol] 9 U/L Normal 7-52 [facility] Comment on above: Performed By: #### H EPATIC, BMP, ESR, LIPASE, CRP #### [address] AST [Catalytic activity/Vol] 13 U/L Normal 13-39 [facility] Comment on above: Performed By: #### H EPATIC, BMP, ESR, LIPASE, CRP #### [facility] [address] [place] [address] Bilirubin [Mass/Vol] 0.4 mg/dL Normal 0.3-1.[address] [facility] Comment on above: Performed By: #### H EPATIC, BMP, ESR, LIPASE, CRP #### [address] Bilirubin,Indirect 0.3 mg/dL Normal [facility] Comment on above: Performed By: #### H EPATIC, BMP, ESR, LIPASE, CRP #### [facility] [address] [place] [address] Bilirubin.indirect [Mass/Vol] 0.10 mg/dL Normal 0.03-0.18 [facility] Comment on above: Performed By: #### H EPATIC, BMP, ESR, LIPASE, CRP #### [facility] [address] [place] [address] Globulin (S) [Mass/Vol] 2.9 g/dL Normal [facility] Comment on above: Performed By: #### H EPATIC, BMP, ESR, LIPASE, CRP #### [facility] [address] Protein [Mass/Vol] 6.8 g/dL Normal 6.4-8.9 [facility] Comment on above: Performed By: #### H EPATIC, BMP, ESR, LIPASE, CRP #### [facility] [address] Ketones Auto test strip (U) [Mass/Vol]Ordered By: Mahad Bishop on 07-13-2023 Ketones (U) [Mass/Vol] Trace Negative [facility] Leukocytes [#/volume] correc doc for nucleated erythrocytes in Blood by Automated counOrdered By: Mahad Bishop on 07-13-2023 WBC corrected for nucl RBC Auto (Bld) [#/Vol] 10.7 10*3/uL 3.8-11.6 [facility] Lipaseon 07-13-2023 Lipase [Catalytic activity/Vol] 3.0 U/L Low 11.0-82.0 [facility] Comment on above: Performed By: #### H EPATIC, BMP, ESR, LIPASE, CRP #### [facility] [address] [place] [address] Lipase [Enzymatic activity/v olume] in Serum or PlasmaOrdered By: Mahad Bishop on 07-13-2023 Lipase [Catalytic activity/Vol] 3.0 U/L 11.0-82.0 [facility] Lymphocytes Auto (Bld) [#/Vo l]Ordered By: Mahad Bishop on 07-13-2023 Lymphocytes (Bld) [#/Vol] 1.7 10*3/uL 1.00-4.8 [facility] Lymphocytes/100 WBC Auto (Bl d)Ordered By: Mahad Bishop on 07-13-2023 Lymphocytes/100 WBC (Bld) 15.4 % . [facility] MCH Auto (RBC) [Entitic mass ]Ordered By: Mahad Bishop on 07-13-2023 MCH (RBC) [Entitic mass] 30.2 pg 24.7-34.3 [facility] MCHC Auto (RBC) [Mass/Vol]Or dered By: Mahad Bishop on 07-13-2023 MCHC (RBC) [Mass/Vol] 34.7 g/dL 32.0-35.0 [facility] MCV Auto (RBC) [Entitic vol] Ordered By: Mahad Bishop on 07-13-2023 MCV (RBC) [Entitic vol] 87.1 fL 80-[address] [facility] Monocyte distribution width [Entitic volume] in Blood by AutomatedOrdered By: Mahad Bishop on 07-13-2023 Monocyte distribution width Auto (Bld) [Entitic vol] 19.27 % 0.00-20.00 [facility] Monocytes Auto (Bld) [#/Vol] Ordered By: Mahad Bishop on 07-13-2023 Monocytes (Bld) [#/Vol] 0.8 10*3/uL 0.0-0.8 [facility] Monocytes/100 WBC Auto (Bld) Ordered By: Mahad Bishop on 07-13-2023 Monocytes/100 WBC (Bld) 7.5 % . [facility] Neutrophils Auto (Bld) [#/Vo l]Ordered By: Mahad Bishop on 07-13-2023 Neutrophils (Bld) [#/Vol] 7.8 10*3/uL 1.8-7.7 [facility] Neutrophils/100 WBC Auto (Bl d)Ordered By: Mahad Bishop on 07-13-2023 Neutrophils/100 WBC (Bld) 72.7 % . [facility] Nitrite Test strip Ql (U)Ord ered By: Mahad Bishop on 07-13-2023 Nitrite Ql (U) Negative Negative [facility] No Panel InformationOrdered By: Mahad Bishop on 07-13-2023 Estimated GFR (CKD-EPI) > 60.0 mL/Min [facility] Creatinine Clearance (Chem 130.06 [facility] Nucleated erythrocytes [Pres ence] in Blood by Automated countOrdered By: Mahad Bishop on 07-13-2023 Nucleated RBC Auto Ql (Bld) 0.1 /100{WBC} 0-0.5 [facility] Platelet mean volume Auto (B ld) [Entitic vol]Ordered By: Mahad Bishop on 07-13-2023 Platelet mean volume (Bld) [Entitic vol] 6.7 fL 6.3-10.7 [facility] Platelets Auto (Bld) [#/Vol] Ordered By: Mahad Bishop on 07-13-2023 Platelets (Bld) [#/Vol] 625 10*3/uL 150-450 [facility] Potassium [Moles/volume] in Serum or PlasmaOrdered By: Mahad Bishop on 07-13-2023 Potassium [Moles/Vol] 4.0 mmol/L 3.5-5.1 [facility] Protein Auto test strip (U) [Mass/Vol]Ordered By: Mahad Bishop on 07-13-2023 Protein (U) [Mass/Vol] Negative Negative [facility] Protein [Mass/volume] in Ser um or PlasmaOrdered By: Mahad Bishop on 07-13-2023 Protein [Mass/Vol] 6.8 g/dL 6.4-8.9 [facility] RBC Auto (Bld) [#/Vol]Ordere d By: Mahad Bishop on 07-13-2023 RBC (Bld) [#/Vol] 3.79 10*6/uL 3.60-5.00 [facility] Serum or plasma albumin/glob ulin mass ratioOrdered By: Mahad Bishop on 07-13-2023 Albumin/Globulin [Mass ratio] 1.3 {ratio} [facility] Serum or plasma anion gap de terminationOrdered By: Mahad Bishop 07-13-2023 Anion gap [Moles/Vol] 10.1 mmol/L 6.0-15.0 [facility] Serum or plasma non-glucuron idated bilirubin measurement (mass/volume)Ordered By: Mahad Bishop on 07-13-2023 Bilirubin.indirect [Mass/Vol] 0.3 mg/dL [facility] Sodium [Moles/volume] in Ser um or PlasmaOrdered By: Mahad Bishop on 07-13-2023 Sodium [Moles/Vol] 136 mmol/L 136-145 [facility] Specific gravity Auto test s trip (U) [Rel density]Ordered By: Mahad Bishop 07-13-2023 Specific gravity (U) [Rel density] 1.016 1.001-1.030 [facility] Urea nitrogen [Mass/volume] in Serum or PlasmaOrdered By: Mahad Bishop on 07-13-2023 Urea nitrogen [Mass/Vol] 4 mg/dL 01-08 [facility] Urinalysison 07-13-2023 Appearance (U) Clear Normal Clear [facility] Comment on above: Order Comment: Name Collection Type:: Clean-Voided Midstream Performed By: #### U A, UHCG #### [facility] [address] [place] [address] [place] Bilirubin,Urine Negative Normal Negative [facility] Comment on above: Order Comment: Name Collection Type:: Clean-Voided Midstream Performed By: #### U A, UHCG #### [facility] [address] [place] [address] Color (U) Yellow Normal Yellow [facility] Comment on above: Order Comment: Name Collection Type:: Clean-Voided Midstream Performed By: #### U A, UHCG #### [facility] [address] [place] [address] Glucose Ql (U) Normal Normal Normal [facility] Comment on above: Order Comment: Name Collection Type:: Clean-Voided Midstream Performed By: #### U A, UHCG #### [facility] [address] [place] [address] Ketones Ql (U) Trace High Negative [facility] Comment on above: Order Comment: Name Collection Type:: Clean-Voided Midstream Performed By: #### U A, UHCG #### [facility] [address] [place] [address] [place] Leukocyte esterase Test strip Ql (U) Negative Normal Negative [facility] Comment on above: Order Comment: Name Collection Type:: Clean-Voided Midstream Performed By: #### U A, UHCG #### [facility] [address] [place] [address] [place] Nitrite,Urine Negative Normal Negative [facility] Comment on above: Order Comment: Name Collection Type:: Clean-Voided Midstream Performed By: #### U A, UHCG #### [facility] [address] [place] [address] [place] Occult Blood,Urine Negative Normal Negative [facility] Comment on above: Order Comment: Name Collection Type:: Clean-Voided Midstream Performed By: #### U A, UHCG #### [facility] [address] [place] [address] pH (U) 7.0 [pH] Normal 5.0-9.0 [facility] Comment on above: Order Comment: Name Collection Type:: Clean-Voided Midstream Performed By: #### U A, UHCG #### [facility] [address] [place] [address] Protein,Urine Negative Normal Negative [facility] Comment on above: Order Comment: Name Collection Type:: Clean-Voided Midstream Performed By: #### U A, UHCG #### [facility] [address] [place] [address] Specificy Howe,Urine 1.016 Normal 1.001-1.030 [facility] Comment on above: Order Comment: Name Collection Type:: Clean-Voided Midstream Performed By: #### U A, UHCG #### [facility] [address] [place] [address] Urobilinogen,Urine Normal Normal Normal [facility] Comment on above: Order Comment: Name Collection Type:: Clean-Voided Midstream Performed By: #### U A, UHCG #### [facility] [address] [place] [address] Urine clarity by refractomet ry automatedOrdered By: Mahad Bishop on 07-13-2023 Clarity Refractometry automated (U) Clear Clear [facility] Urine glucose measurement by automated test strip (mass/volume)Ordered By: Mahad Bishop on 07-13-2023 Glucose Auto test strip (U) [Mass/Vol] Normal mg/dL Normal [facility] Urine hemoglobin detection b y automated test stripOrdered By: Mahad Bishop on 07-13-2023 Hemoglobin Auto test strip Ql (U) Negative Negative [facility] Urine leukocyte esterase det ection by automated test stripOrdered By: Mahad Bishop on 07-13-2023 Leukocyte esterase Auto test strip Ql (U) Negative Negative [facility] Urobilinogen Auto test strip (U) [Mass/Vol]Ordered By: Mahad Bishop on 07-13-2023 Urobilinogen (U) [Mass/Vol] Normal mg/dL Normal [facility] WBC Auto (Bld) [#/Vol]Ordere d By: Mahad Bishop on 07-13-2023 WBC (Bld) [#/Vol] 10.7 10*3/uL 3.8-11.6 [facility] pH Auto test strip (U)Ordere d By: Mahad Bishop on 07-13-2023 pH (U) 7.0 [pH] 5.0-9.0 [facility] C diff Tox gens Stl Ql SHANIQUA+p robeon 07-12-2023 C. difficile toxin genes SHANIQUA+probe Ql (Stl) Negative Normal Negative for C. difficile toxin by PCR [facility] Comment on above: Order Comment: Speci men Type: STOOL SPECIMENOrdering Facility: [facility] Address: [address] [place] [address] Performed By: #### 5 4067-4 ####[facility] [id number] [place] [address] [place] Gastrointestinal pathogens i dentified SHANIQUA+probe Nom (Stl)on 07-12-2023 Campylobacter sp DNA SHANIQUA+probe Nom (Unsp spec) Not detected Normal Not Detected [facility] Comment on above: Order Comment: Speci men Type: STOOL SPECIMENOrdering Facility: [facility] Address: [address] [place] [address] Performed By: #### 7 9390-1 ####[facility] LABIA [id number] [place] [address] [place] Salmonella sp DNA SHANIQUA+probe Ql (Unsp spec) Not detected Normal Not Detected [facility] Comment on above: Order Comment: Speci men Type: STOOL SPECIMENOrdering Facility: [facility] Address: [address] [place] [address] Performed By: #### 7 9390-1 ####[facility] LABCLIA [id number] [address] Shiga toxin stx gene SHANIQUA+probe Nom (Unsp spec) Not detected Normal Not Detected [facility] Comment on above: Order Comment: Speci men Type: STOOL SPECIMENOrdering Facility: [facility] Address: [address] [place] [address] Performed By: #### 7 9390-1 ####[facility] LABCLIA [id number] [address] Shigella sp DNA SHANIQUA+probe Ql (Unsp spec) Not detected Normal Not Detected [facility] Comment on above: Order Comment: Speci men Type: STOOL SPECIMENOrdering Facility: [facility] Address: [address] [place] [address] Performed By: #### 7 9390-1 ####[facility] LABCLIA [id number] [address] [place] O+P Spec Microon 07-12-2023 Ova and parasites identified LM Nom (Unsp spec) OVA AND PARASITE EXAM: No Parasites Seen Normal [facility] Comment on above: Performed By: #### 6 73-4 ####[facility] LABCLIA [id number] [address] OF [facility] CNPGladis 07-10-2023 CNPN Telephone (INLOIDAVN) CHRISTINA BORJAS ([id number]) 2 F Date Time Provider Department 07/10/23 JESSICA DAWSON INALALESSANDRA During your visit today, we recorded the following information about you: Jessica Dawson, BRADLEY.FITTER ARMAMENT 07/10/2023 3:28 PM Signed Please call the patient to discuss results. Please format pharmacy if she cannot come to [place]. Overall, labs look ok. Still waiting on the celiac panel to return. Her blood counts show anemia, which is caused by her low iron level. This is most likely related to her rectal bleeding. I am going to order oral iron for her to start taking twice daily. I recommend take the iron supplement twice daily, on an empty stomach, with orange juice, as this is best for absorption. We should recheck her blood counts in 4 weeks to make sure we seen an improvement. If there is improvement, we can go to once daily dosing. She should plan to be on the iron supplement for 3-4 months, as it takes that long for stores to improve. If she does not tolerate the iron, please have her contact the office. The alternative is IV iron replacement. Her vitamin D is on the low end of normal. Have her START a 2,000 international unit(s) /day supplement. Her potassium is one point low. Encourage her to eat potassium rich foods, or one banana a day. This is most likely r/t to her diarrhea. The following approved medication requests have been transmitted electronically. Requested Prescriptions Pending Prescriptions Disp Refills ferrous sulfate 325 mg (65 mg iron) tablet 180 tablet 0 Sig: Take 1 tablet by mouth two times a day. Jessica Dawson APRN.Liseth Valadez LPN 07/10/2023 6:04 PM Signed Pt advised to call nurse line for PATIENT RELATIONS REPRESENTATIVE message below. Danette Adan RN 07/10/2023 7:04 PM Signed Spoke to patient and relayed the below message (Please use: [facility] in [place], [place], which I updated in the record) Pt understands the message about her results All basic questions answered and denied any back to provider She will try to get her stool specimens done as soon as she can by the way Allergies As of Date: 07/10/2023 (No Known Allergies) Date Reviewed: 07/10/2023 Reviewed by: Jessica Dawson APRN.YADIRA - Fully Assessed Reason for Visit: Results [95] Orders [681] Primary Visit Diagnosis:Iron deficiency anemia due to chronic blood loss [D50.0] Order(s):CBC [SQCBC] Order #: [id number] FUTURE IRON + TIBC [SQIRON] Order #: [id number] FUTURE ferrous sulfate 325 mg (65 mg iron) tabletTake 1 tablet by mouth two times a day.Disp: 180 tabletRfl: 0 Prescriptions as of 07/11/2023 - ferrous sulfate 325 mg (65 mg iron) tablet Take 1 tablet by mouth two times a day. Problem List As Of Date: 07/10/2023 (None) Prescriptions ordered this encounter Disp Refills Start End FERROUS SULFATE 325 MG (65 MG IRON) * 180 * 0 07/10/2023 07/10/2023 Route: ORAL Sig: Take 1 tablet by mouth two times a day. FERROUS SULFATE 325 MG (65 MG IRON) * 180 * 0 07/11/2023 10/09/2023 Route: ORAL Sig: Take 1 tablet by mouth two times a day. Medications Discontinued During This Encounter Prescriptions - ferrous sulfate 325 mg (65 mg iron) tablet (Discontinued) Take 1 tablet by mouth two times a day. Encounter Status:Closed by JESSICA DAWSON on 07/11/23 Normal [facility] 25(OH)D3 SerPl-mCncon 2023 25-hydroxyvitamin D3 [Mass/Vol] 31.0 ng/mL Normal 31.0-80.0 [facility] Comment on above: Order Comment: Darci michael Type: BLOOD SPECIMEN Ordering Facility: [facility] Address: [address] [place] [address] Result Comment: Clas sification of 25 [place] Vitamin D status: Deficiency/Insufficiency: < or = 30 ng/ml. Sufficiency/Optimal Levels: 31-80 ng/mL Toxicity: > 100 ng/mL. Test performed by chemiluminescent immunoassay. Performed By: #### 2 276-4, 3040-3, 14125-4, 1987- #### [facility] CLIA [id number] [place] [address] [place] CUCA BY IFA WITH REFLEXon Nuclear Ab Ql (S) Negative Normal Negative [facility] Comment on above: Order Comment: Darci michael Type: BLOOD SPECIMEN Ordering Facility: [facility] Address: [address] [place] [address] Result Comment: Anti -nuclear antibody test is used as an aid in diagnosis of systemic autoimmune diseases. Where positive and clinically warranted, follow-up using disease-specific testing is recommended. Low positive titers are not uncommon with advanced age, certain chronic infections, and malignancies among others. Test methodology: Indirect fluorescence immunoassay (IFA) using HEp-2 cells. Performed By: #### A NAIFR #### [facility] CLIA [id number] [address] [place] [address] [id number] [place] [address] [place] Amylase SerPl-cCncon 024 Amylase [Catalytic activity/Vol] 56 U/L Normal 30-104 [facility] Comment on above: Order Comment: Speci men Type: BLOOD SPECIMEN Ordering Facility: [facility] Address: [address] [place] [address] Performed By: #### 3 016-3, 86756-6, 56605-8, 1798-8 #### [facility] CLIA [id number] [address] [place] [address] [place] CBC W Auto Differential pane l (Bld)on 07-09-2023 Basophils (Bld) [#/Vol] 0.05 10*3/uL Normal <0.11 [facility] Comment on above: Order Comment: Speci men Type: BLOOD SPECIMEN Ordering Facility: [facility] Address: [address] [place] [address] Performed By: #### 5 7021-8 #### [facility] CLIA [id number] [address] [place] [address] [place] Basophils/100 WBC (Bld) 0.7 % Normal [facility] Comment on above: Order Comment: Speci men Type: BLOOD SPECIMEN Ordering Facility: [facility] Address: [address] [place] [address] Performed By: #### 5 7021-8 #### [facility] CLIA [id number] [address] [place] [address] [place] Differential cell count method Nom (Bld) Auto Normal [facility] Comment on above: Order Comment: Speci men Type: BLOOD SPECIMEN Ordering Facility: [facility] Address: [address] [place] [address] Performed By: #### 5 7021-8 #### [facility] IA [id number] [address] [place] [address] [place] Eosinophils (Bld) [#/Vol] 0.46 10*3/uL High <0.46 [facility] Comment on above: Order Comment: Speci men Type: BLOOD SPECIMEN Ordering Facility: [facility] Address: [address] [place] [address] Performed By: #### 5 7021-8 #### [facility] [place] [id number] [address] [place] Eosinophils/100 WBC (Bld) 6.3 % Normal [facility] Comment on above: Order Comment: Speci men Type: BLOOD SPECIMEN Ordering Facility: [facility] Address: [address] [place] [address] Performed By: #### 5 7021-8 #### [facility] IA [id number] STATES [place] Erythrocyte distribution width (RBC) [Ratio] 11.5 % Normal 11.5-15.0 [facility] Comment on above: Order Comment: Speci men Type: BLOOD SPECIMEN Ordering Facility: [facility] Address: [address] [place] [address] Performed By: #### 5 7021-8 #### [facility] IA [id number] [address] [place] Hematocrit (Bld) [Volume fraction] 32.0 % Low 36.0-46.0 [facility] Comment on above: Order Comment: Speci men Type: BLOOD SPECIMEN Ordering Facility: [facility] Address: [address] [place] [address] Performed By: #### 5 7021-8 #### [facility] IA [id number] [address] [place] [id number] [place] Hemoglobin (Bld) [Mass/Vol] 10.6 g/dL Low 11.5-15.5 [facility] Comment on above: Order Comment: Speci men Type: BLOOD SPECIMEN Ordering Facility: [facility] Address: [address] [place] [address] Performed By: #### 5 7021-8 #### [facility] CLIA [id number] [facility] [place] [address] [place] Immature granulocytes (Bld) [#/Vol] 10*3/uL Normal <0.10 [facility] Comment on above: Order Comment: Speci men Type: BLOOD SPECIMEN Ordering Facility: [facility] Address: [address] [place] [address] Performed By: #### 5 7021-8 #### [facility] CLIA [id number] [address] [place] [address] [place] Immature granulocytes/100 WBC (Bld) 0.3 % Normal [facility] Comment on above: Order Comment: Speci men Type: BLOOD SPECIMEN Ordering Facility: [facility] Address: [address] [place] [address] Performed By: #### 5 7021-8 #### [facility] CLIA [id number] [address] [place] [address] [place] Lymphocytes (Bld) [#/Vol] 1.81 10*3/uL Normal 1.00-4.00 [facility] Comment on above: Order Comment: Speci men Type: BLOOD SPECIMEN Ordering Facility: [facility] Address: [address] [place] [address] Performed By: #### 5 7021-8 #### [facility] CLIA [id number] [address] [place] [address] [place] Lymphocytes/100 WBC (Bld) 24.8 % Normal [facility] Comment on above: Order Comment: Speci men Type: BLOOD SPECIMEN Ordering Facility: [facility] Address: [address] [place] [address] Performed By: #### 5 7021-8 #### [facility] CLIA [id number] MCH (RBC) [Entitic mass] 29.6 pg Normal 26.0-34.0 [facility] Comment on above: Order Comment: Speci men Type: BLOOD SPECIMEN Ordering Facility: [facility] Address: [address] [place] [address] Performed By: #### 5 7021-8 #### [facility] CLIA [id number] [place] MCHC (RBC) [Mass/Vol] 33.1 g/dL Normal 30.5-36.0 [facility] Comment on above: Order Comment: Speci men Type: BLOOD SPECIMEN Ordering Facility: [facility] Address: [address] [place] [address] Performed By: #### 5 7021-8 #### [facility] [place] [id number] [address] [place] [address] OF [facility] MCV (RBC) [Entitic vol] 89.4 fL Normal 80.0-100.0 [facility] Comment on above: Order Comment: Speci men Type: BLOOD SPECIMEN Ordering Facility: [facility] Address: [address] [place] [address] Performed By: #### 5 7021-8 #### [facility] IA [id number] [address] [place] [address] [place] Monocytes (Bld) [#/Vol] 0.69 10*3/uL Normal <0.87 [facility] Comment on above: Order Comment: Speci men Type: BLOOD SPECIMEN Ordering Facility: [facility] Address: [address] [place] [address] Performed By: #### 5 7021-8 #### [facility] IA [id number] [address] [place] [address] Monocytes/100 WBC (Bld) 9.5 % Normal [facility] Comment on above: Order Comment: Speci men Type: BLOOD SPECIMEN Ordering Facility: [facility] Address: [address] [place] [address] Performed By: #### 5 7021-8 #### [facility] IA [id number] [address] [place] [address] [place] Neutrophils (Bld) [#/Vol] 4.26 10*3/uL Normal 1.45-7.50 [facility] Comment on above: Order Comment: Speci men Type: BLOOD SPECIMEN Ordering Facility: [facility] Address: [address] [place] [address] Performed By: #### 5 7021-8 #### [facility] IA [id number] [address] [place] [address] [place] Neutrophils/100 WBC (Bld) 58.4 % Normal [facility] Comment on above: Order Comment: Speci men Type: BLOOD SPECIMEN Ordering Facility: [facility] Address: [address] [place] [address] Performed By: #### 5 7021-8 #### [facility] IA [id number] [address] [place] [address] [place] Nucleated RBC (Bld) [#/Vol] 10*3/uL Normal <0.01 [facility] Comment on above: Order Comment: Speci men Type: BLOOD SPECIMEN Ordering Facility: [facility] Address: [address] [place] [address] Performed By: #### 5 7021-8 #### [facility] IA [id number] [address] [place] [address] [place] Nucleated RBC/100 WBC (Bld) [Ratio] 0.0 /100 WBC Normal [facility] Comment on above: Order Comment: Speci men Type: BLOOD SPECIMEN Ordering Facility: [facility] Address: [address] [place] [address] Performed By: #### 5 7021-8 #### [facility] IA [id number] [address] [place] [address] [place] Platelet mean volume (Bld) [Entitic vol] 8.8 fL Low 9.0-12.7 [facility] Comment on above: Order Comment: Speci men Type: BLOOD SPECIMEN Ordering Facility: [facility] Address: [address] [place] [address] Performed By: #### 5 7021-8 #### [facility] IA [id number] [address] [place] [address] [place] Platelets (Bld) [#/Vol] 473 10*3/uL High 150-400 [facility] Comment on above: Order Comment: Speci men Type: BLOOD SPECIMEN Ordering Facility: [facility] Address: [address] [place] [address] Performed By: #### 5 7021-8 #### [facility] IA [id number] [address] [place] [address] [place] RBC (Bld) [#/Vol] 3.58 10*6/uL Low 3.90-5.20 [facility] Comment on above: Order Comment: Speci men Type: BLOOD SPECIMEN Ordering Facility: [facility] Address: [address] [place] [address] Performed By: #### 5 7021-8 #### [facility] IA [id number] [address] [place] [address] [place] WBC (Bld) [#/Vol] 7.29 10*3/uL Normal 3.70-11.00 [facility] Comment on above: Order Comment: Speci men Type: BLOOD SPECIMEN Ordering Facility: [facility] Address: [address] [place] [address] Performed By: #### 5 7021-8 #### [facility] IA [id number] [address] [facility] [place] [address] [facility] [place] CELIAC ASSOC HLA-DQ GENOTYPE on 07-09-2023 CELIAC CATEGORY Category 0 Normal [facility] Comment on above: Order Comment: Speci men Type: BLOOD SPECIMEN Ordering Facility: [facility] Address: [address] [place] [address] Result Comment: CATEGORY DQ HAPLOTYPE RELATIVE RISK Category 7 DQ2.2 AND DQ2.5 Extremely High Category 7 DQ2.5 AND DQ2.5 Extremely High Category 6 DQ2.2 AND DQA1*05, DQB1*03:01 Very High Category 5 DQ2.2 AND DQ8 Very High Category 5 DQ2.5 AND DQ8 Very High Category 4 DQ8 AND DQ8 High Category 3 DQ2.5 AND DQA1*05, DQB1*03:01 High Category 3 DQ2.5 AND DQA1*02:01, DQB1*03:03 High Category 3 DQ2.5 AND DQA1*03, DQB1*02 High Category 3 DQ2.5 AND OTHER LOW RISK ALLELE High Category 3 DQ2.2 AND DQA1*05, DQB1*03:03 High Category 2 DQ8 AND OTHER LOW RISK ALLELE Moderate Category 1 DQ2.2 AND OTHER LOW RISK ALLELE Low Category 0 NEGATIVE FOR DQ2.2 Negative Category 0 NEGATIVE FOR DQ2.5 Negative Category 0 NEGATIVE FOR DQ8 Negative DQ2.2 = DQA1*02:01, DQB1*02:02 DQ2.5 = DQA1*05, DQB1*02:01 DQ8 = DQA1*03, DQB1*03:02 The identification of one of these HLA-DQ genotypes is not, by itself, sufficient for the diagnosis of celiac disease, since both DQ2 and DQ8 are relatively common in the general population. The strongest reported HLA associations with celiac disease include DQ2 (DQ2.5 or DQA1*05-DQB1*02:01 & DQA2.2 or DQA1*02:01-DQB1*02:02) and DQ8 (DQA1*03:01/DQB1*03:02). This test is useful for family members of celiac patients and patients with negative serology results. This testing can rule out celiac disease with high negative predictive value (NPV) of 95-100% depending on the ethnic background. In cases of an ambiguous HLA allele assignment where multiple rare alleles cannot be excluded, the most common HLA allele is reported. References: 1. Avani L, Gayle J, Ever K, et al. Cost-effective HLA typing with tagging SNPs predicts celiac disease risk haplotypes in the [place]ese, [place]ese and [place] populations. Immunogenetics. 2009 Sep;61(4):247-56. 2. Lorie BERG. Celiac disease: dissecting a complex inflammatory disorder. Monalisa Rev Immunol. 2002 Feb;2(9):099-55. 3. Mukesh E, Dionte HS, Aronsson CA, et al. Risk of pediatric celiac disease according to HLA haplotype and country. N Engl J Med. 2013;371(1):42-9. HLA typing performed by PCR-RSSOP and/or NGS. This test was developed and its performance characteristics determined by [facility]. The test has not been cleared or approved by the [place] FDA. However, FDA approval was not necessary since this lab is certified under CLIA for high complexity testing. Test performed by: [facility], [address] [place] [address]., Desk [address] [id number]. CLIA [id number]. Performed By: #### 2 276-4, 3040-3, , 1987-10 #### [facility] CLIA [id number] [address] [place] [address] [facility] [place] CELIAC RISK HAPLOTYPE Negative [facility] Comment on above: Order Comment: Speci men Type: BLOOD SPECIMEN Ordering Facility: [facility] Address: [address] [place], [place] [address] Performed By: #### 2 276-4, 3040-3, , 1987-10 #### [facility] CLIA [id number] [address] [place], [place] [address] [place] [address] [place] HLA-DQA1 GENOTYPE HLA-DQA1*: 01, 01 [facility] Comment on above: Order Comment: Speci men Type: BLOOD SPECIMEN Ordering Facility: [facility] Address: [address] [place], [place] [address] Performed By: #### 2 276-4, 3040-3, , 1987-10 #### [facility] CLIA [id number] [facility] [place] [address] [facility] [place] HLA-DQB1 GENOTYPE HLA-DQB1*: 06, 06 [facility] Comment on above: Order Comment: Speci men Type: BLOOD SPECIMEN Ordering Facility: [facility] Address: [facility] [place] [id number] Performed By: #### 2 276-4, 3040-3, , 1987-10 #### [facility] CLIA [id number] [address] [facility] [place] [address] [place] CELIAC SCREENon 07-09-2023 GLIAD DEAMIDATED IGA QUAL Negative Normal Negative, Test not Indicated [facility] Comment on above: Order Comment: Darci michael Type: BLOOD SPECIMEN Ordering Facility: [facility] Address: [address] [place] [address] Result Comment: This is used as an aid in diagnosis of celiac disease. Clinical correlation is required. The following results were obtained with an [employer]lyva QUANTA Lite Gliadin IgA BRIDGETTE Gliadin. Gliadin IgA values obtained with different manufacturers' assay methods may not be used interchangeably. The magnitude of the reported IgA levels cannot be correlated to an endpoint titer. Performed By: #### L [id number] #### [facility] CLIA [id number] [address] [place] [address] [place] Gliadin peptide IgA Qn (S) 3 Units Normal <20 [facility] Comment on above: Order Comment: Darci michael Type: BLOOD SPECIMEN Ordering Facility: [facility] Address: [address] [place] [address] Performed By: #### L [id number] #### [facility] CLIA [id number] [address] [place] [address] [place] INTERPRETATION No serological evidence of celiac disease, however, if celiac disease is clinically suspected and patient is not on gluten-free diet, histological diagnosis may be considered. HLA testing may help with risk assessment. Normal [facility] Comment on above: Order Comment: Darci michael Type: BLOOD SPECIMEN Ordering Facility: [facility] Address: [address] [place] [address] Performed By: #### L [id number] #### [facility] CLIA [id number] [address] [place] [address] [place] TRANSGLUTAMINASE IGA ABS INTERPRETATION Negative Normal Negative [facility] Comment on above: Order Comment: Darci michael Type: BLOOD SPECIMEN Ordering Facility: [facility] Address: [address] [place] [address] Result Comment: The following results were obtained with Diglyva QUANTA Lite R h-tTG IgA BRIDGETTE.???R h-tTG IgA values obtained with different manufacturers' assay methods may not be used interchangeably. The magnitude of the reported IgA levels cannot be corelated to an endpoint???concentration. This is used as an aid in diagnosis of celiac disease. Clinical correlation is required. Performed By: #### L [id number] #### [facility] CLIA [id number] [address] [place] [address] [place] tTG IgA Qn (S) <2 Normal <4 [facility] Comment on above: Order Comment: Speci men Type: BLOOD SPECIMEN Ordering Facility: [facility] Address: [address] [place] [address] Performed By: #### L [id number] #### [facility] CLIA [id number] [address] [place] [address] [place] CNOVon 07-09-2023 CNOV Office Visit (INMAVN ) CHRISTINA BORJAS ([id number]) 2 F Date Time Provider Department 07/09/23 12:40 PM JESSICA DAWSON INTUCKER During your visit today, we recorded the following information about you: Pulse Blood pressure Weight 82/minute 115/76 74.8 kg Jessica Dawson, BRADLEY.FITTER ARMAMENT 07/10/2023 3:53 PM Signed Patient presents with: Rectal Bleeding Recheck HPI: Pt here today for express care follow-up. Accompanied by mother. Looking for PCP; current PCP has not check labs. Looking for another GI opinion. Pt seen by me on 07/06/23. Notes below: Pt here today for rectal bleeding. Seen by GI in the past. LEIGH ANN 06/20/23 with GI. September 2022 sigmoidoscopy in September; hemorrhoids. 06/2022 colonoscopy; normal exam, no biopsies. Has a PCP. Feels not much is being done. Pt states worsening bleeding over the last year. Pt denies vomiting. Pt is having a BM 6-7 times per day. Liquid stool noted after stomach cramping. Worse over the last BM. Some solid stool. Denies constipation. IBS? Celiac? Notes blood in the water, stool, and when she wipes. Home cooked meals. Eliminating dairy; nothing in two weeks. Has not eliminated gluten. Taking probiotic daily. Pt denies anxiety or stress. Pt states she is staying hydrated. Weight is stable. UTI the last two month; antibiotic 2-3 weeks ago. Denies travel outside of the [place]. Started fiber one tsp daily since our express care visit. Cramping for a little over a month. Liquid stool. Blood noted with each bowel movement. Weight stable. BP 115/76 (BP Site: Left Arm, BP Position: Sitting, BP Cuff Size: Regular Adult) Pulse 82 Wt 74.8 kg (165 lb) HISTORIES No family history on file. No past medical history on file. No past surgical history on file. ALLERGIES No Known Allergies No current outpatient medications on file. No current facility-administered medications for this visit. REVIEW OF SYSTEMS As noted in HPI. PHYSICAL EXAMINATION: General appearance: Well appearing, alert, in no acute distress, well-hydrated, well nourished. Skin: Skin color, texture, turgor normal, no suspicious rashes or lesions Head: Normocephalic Eyes: Anicteric sclera. Oropharynx: Lips, mucosa, and tongue normal, teeth and gums normal, oropharynx normal Lungs: Lungs clear to auscultation. No wheezing, rhonchi, rales Heart: RRR without murmur, gallop, or rubs. No ectopy Abdomen: Normal abdominal exam, Abdomen soft, non-tender. Bowel sounds normal. No masses, organomegaly There is no problem list on file for this patient. ASSESSMENT/PLAN: 1. Rectal bleeding - ICD9: 569.3, ICD10: K62.5 (primary diagnosis) Celiac? Lactose? IBS? Colitis? - CBC + DIFF - FERRITIN BLD - COMP METABOLIC PANEL - TSH BLD - CELIAC COMPREHENSIVE PANEL - H PYLORI IGG AB - SED RATE WESTERGREN - C-REACTIVE PROTEIN (CRP) - CUCA BY IFA WITH REFLEX - IRON + TIBC - VITAMIN B12 BLOOD - MAGNESIUM BLD - VITAMIN D 25 HYDROXY - FOLATE SERUM - CONSULT TO GASTROENTEROLOGY - LIPASE BLD - HGB A1C - AMYLASE BLD 2. Chronic diarrhea - ICD9: 787.91, ICD10: K52.9 - CBC + DIFF - FERRITIN BLD - COMP METABOLIC PANEL - TSH BLD - CELIAC COMPREHENSIVE PANEL - H PYLORI IGG AB - SED RATE WESTERGREN - C-REACTIVE PROTEIN (CRP) - CUCA BY IFA WITH REFLEX - IRON + TIBC - VITAMIN B12 BLOOD - MAGNESIUM BLD - VITAMIN D 25 HYDROXY - FOLATE SERUM - CONSULT TO GASTROENTEROLOGY - LIPASE BLD - HGB A1C - AMYLASE BLD Have the blood work completed today. Get a stool set at the lab. Consult placed for gastroenterology. Continue to keep a log of your symptoms. What did you eat. Caffeine. Menstrual cycle. Stress. Cut out gluten. Cut out lactose. Consider a low FODMAP. Jessica Dawson APRN.Jessica Castro APRN.CNP 07/09/2023 12:57 PM Addendum Have the blood work completed today. Get a stool set at the lab. Consult placed for gastroenterology. Continue to keep a log of your symptoms. What did you eat. Caffeine. Menstrual cycle. Stress. Cut out gluten. Cut out lactose. Consider a low FODMAP. Referring Provider: SELF [200] Allergies As of Date: 07/09/2023 (No Known Allergies) Date Reviewed: 07/06/2023 Reviewed by: Jessica Dawson APRN.CNP - Fully Assessed Reason for Visit: Rectal Bleeding [202] Recheck [92] Primary Visit Diagnosis:Rectal bleeding [K62.5] Other Visit Diagnosis:Chronic diarrhea [K52.9] Order(s):CBC + DIFF [SQCBCDIF] Order #: [id number] FUTURE FERRITIN BLD [SQFERR] Order #: [id number] FUTURE COMP METABOLIC PANEL [SQCMP] Order #: [id number] FUTURE TSH BLD [SQTSH] Order #: [id number] FUTURE CELIAC COMPREHENSIVE PANEL [SQCELCMP] Order #: [id number] FUTURE H PYLORI IGG AB [SQHPYLRI] Order #: [id number] FUTURE SED RATE WESTERGREN [SQWSR] Order #: [id number] FUTURE C-REACTIVE PROTEIN (CRP) [SQCRP] Order #: (more content not included)... Normal [facility] CRP SerPl-mCncon 07-09-2023 CRP [Mass/Vol] 0.7 mg/dL Normal <0.9 [facility] Comment on above: Order Comment: Speci men Type: BLOOD SPECIMEN Ordering Facility: [facility] Address: [address] [place] [address] Performed By: #### 2 276-4, 3040-3, 94022-5, 1987- #### [facility] CLIA [id number] [place] [address] [facility] Comprehensive metabolic 2000 panelon 07-09-2023 Albumin [Mass/Vol] 3.8 g/dL Low 3.9-4.9 [facility] Comment on above: Order Comment: Speci men Type: BLOOD SPECIMEN Ordering Facility: [facility] Address: [address] [place] [address] Performed By: #### 3 016-3, 83640-1, 17731-0, 8 #### [facility] CLIA [id number] [place] [address] [place] ALP [Catalytic activity/Vol] 63 U/L Normal 34-123 [facility] Comment on above: Order Comment: Speci men Type: BLOOD SPECIMEN Ordering Facility: [facility] Address: [address] [place] [address] Performed By: #### 3 016-3, 59855-7, 41222-6, 8 #### [facility] CLIA [id number] [place] [address] [facility] ALT [Catalytic activity/Vol] 9 U/L Normal 7-38 [facility] Comment on above: Order Comment: Speci men Type: BLOOD SPECIMEN Ordering Facility: [facility] Address: [address] [place] [address] Performed By: #### 3 016-3, 78656-8, 56324-5, 1797-8 #### [facility] CLIA [id number] [address] [place] [address] [place] Anion gap [Moles/Vol] 10 mmol/L Normal 9-18 [facility] Comment on above: Order Comment: Speci men Type: BLOOD SPECIMEN Ordering Facility: [facility] Address: [facility] [place] [address] Performed By: #### 3 016-3, 14743-6, 54125-2, 8 #### [facility] CLIA [id number] [address] [place] [address] [place] AST [Catalytic activity/Vol] 16 U/L Normal 13-35 [facility] Comment on above: Order Comment: Speci men Type: BLOOD SPECIMEN Ordering Facility: [facility] Address: [address] [place] [address] Performed By: #### 3 016-3, 99143-5, 08811-7, 8 #### [facility] CLIA [id number] [address] [place] [address] [place] Bilirubin [Mass/Vol] 0.4 mg/dL Normal 0.2-1.3 [facility] Comment on above: Order Comment: Speci men Type: BLOOD SPECIMEN Ordering Facility: [facility] Address: [facility] [place] [address] Performed By: #### 3 016-3, 08852-3, 80695-6, 1798-01 #### [facility] CLIA [id number] [address] [place] [address] [place] Calcium [Mass/Vol] 9.0 mg/dL Normal 8.5-10.2 [facility] Comment on above: Order Comment: Speci men Type: BLOOD SPECIMEN Ordering Facility: [facility] Address: [address] [place] [address] Performed By: #### 3 016-3, 06282-6, 34327-4, 8 #### [facility] CLIA [id number] [address] [place] [address] [place] Chloride [Moles/Vol] 105 mmol/L Normal 97-105 [facility] Comment on above: Order Comment: Speci men Type: BLOOD SPECIMEN Ordering Facility: [facility] Address: [address] [place], [place] [address] Performed By: #### 3 016-3, 87360-2, 52013-8, 1798-01 #### [facility] CLIA [id number] [address] [place] [address] [place] CO2 [Moles/Vol] 26 mmol/L Normal 22-30 [facility] Comment on above: Order Comment: Speci men Type: BLOOD SPECIMEN Ordering Facility: [facility] Address: [address] [place], [place] [address] Performed By: #### 3 016-3, 23248-5, 56881-1, 1798-01 #### [facility] CLIA [id number] [address] [place] [address] [place] Creatinine [Mass/Vol] 0.73 mg/dL Normal 0.58-0.96 [facility] Comment on above: Order Comment: Speci men Type: BLOOD SPECIMEN Ordering Facility: [facility] Address: [address] [place], [place] [address] Performed By: #### 3 016-3, 73357-1, , 1798-01 #### [facility] CLIA [id number] [address] [place] [address] [facility] Creatinine and Glomerular filtration rate.predicted panel (S/P/Bld) 119 mL/min/1.73m??? Normal >=60 [facility] Comment on above: Order Comment: Speci men Type: BLOOD SPECIMEN Ordering Facility: [facility] Address: [address] [place], [place] [address] Result Comment: Marilia mated Glomerular Filtration Rate (eGFR) is calculated using the 2020 CKD-EPI creatinine equation. This equation utilizes serum creatinine, sex, and age as parameters. The creatinine assay has traceable calibration to isotope dilution-mass spectrometry. Refer to KDIGO guidelines for clinical interpretation. In patients with unstable renal function, e.g. those with acute kidney injury, the eGFR may not accurately reflect actual GFR. Performed By: #### 3 016-3, 99506-6, 01132-3, 8 #### [facility] CLIA [id number] [address] [place] [address] [place] Glucose [Mass/Vol] 99 mg/dL Normal 74-99 [facility] Comment on above: Order Comment: Darci michael Type: BLOOD SPECIMEN Ordering Facility: [facility] Address: [address] [place], [place] [address] Result Comment: The [place] Diabetes Association (ADA) provides guidance for cutoff values for fasting glucose and random glucose. The ADA defines fasting as no caloric intake for at least 8 hours. Fasting plasma glucose results between 100 to 125 mg/dL indicate increased risk for diabetes (prediabetes). Fasting plasma glucose results greater than or equal to 126 mg/dL meet the criteria for diagnosis of diabetes. In the absence of unequivocal hyperglycemia, results should be confirmed by repeat testing. In a patient with classic symptoms of hyperglycemia or hyperglycemic crisis, random plasma glucose results greater than or equal to 200 mg/dL meet the criteria for diagnosis of diabetes. Reference: Standards of Medical Care in Diabetes 2016, [place] Diabetes Association. Diabetes Care. 2016.39(Suppl 1). Performed By: #### 3 016-3, 51229-6, 80192-1, 1798-01 #### [facility] CLIA [id number] [address] [place] [address] [place] Potassium [Moles/Vol] 3.6 mmol/L Low 3.7-5.1 [facility] Comment on above: Order Comment: Darci michael Type: BLOOD SPECIMEN Ordering Facility: [facility] Address: [address] [place] [address] Performed By: #### 3 016-3, 58925-8, 00320-7, 8 #### [facility] CLIA [id number] [address] [place] [address] [place] Protein [Mass/Vol] 6.6 g/dL Normal 6.3-8.0 [facility] Comment on above: Order Comment: Darci michael Type: BLOOD SPECIMEN Ordering Facility: [facility] Address: [address] [place], [place] [address] Performed By: #### 3 016-3, 18833-2, 95913-9, 8 #### [facility] CLIA [id number] [address] [place] [address] [place] Sodium [Moles/Vol] 141 mmol/L Normal 136-144 [facility] Comment on above: Order Comment: Speci men Type: BLOOD SPECIMEN Ordering Facility: [facility] Address: [address] [place] [address] Performed By: #### 3 016-3, 29432-7, 20818-1, 1798-01 #### [facility] CLIA [id number] [address] [place] [address] [place] Urea nitrogen [Mass/Vol] 7 mg/dL Normal 7-21 [facility] Comment on above: Order Comment: Speci men Type: BLOOD SPECIMEN Ordering Facility: [facility] Address: [address] [place], [place] [address] Performed By: #### 3 016-3, 29997-4, 77223-1, 1798-01 #### [facility] CLIA [id number] [address] [place] [address] [place] ESR Westergren method (Bld) [Velocity]on 07-09-2023 ESR (Bld) [Velocity] 20 mm/h Normal 0-20 [facility] Comment on above: Order Comment: Speci men Type: BLOOD SPECIMEN Ordering Facility: [facility] Address: [address] [place] [address] Performed By: #### 2 276-4, 3040-3, , 1987-10 #### [facility] CLIA [id number] [address] [place] [address] [place] Ferritin SerPl-mCncon 2023 Ferritin [Mass/Vol] 20.9 ng/mL Normal 14.7-205.1 [facility] Comment on above: Order Comment: Speci men Type: BLOOD SPECIMEN Ordering Facility: [facility] Address: [address] [place] [address] Performed By: #### 2 276-4, 3040-3, , 1987-10 #### [facility] CLIA [id number] [address] [facility] [place] [address] [place] Folate SerPl-mCncon 07-09-19 24 Folate [Mass/Vol] ng/mL Normal >4.7 [facility] Comment on above: Order Comment: Darci michael Type: BLOOD SPECIMEN Ordering Facility: [facility] Address: [address] [place] [address] Result Comment: A re sult of > 20 ng/mL is not necessarily indicative of a pathologic or treatable condition: it reflects a limitation of the test methodology. Assay reference range: 4.8 to 24.2 ng/mL. Suitable for detection of folate deficiency. Reference: Folate III (Folate III) [package insert V 1.0 [place]an]. [employer], [place], [place]: April 2015. Performed By: #### 2 276-4, 3, , 1987-10 #### [facility] CLIA [id number] [address] [place] [id number] [place] H. pylori IgG IA Qlon 2023 H. PYLORI IGG, QUAL Negative Normal Negative [facility] Comment on above: Order Comment: Darci michael Type: BLOOD SPECIMEN Ordering Facility: [facility] Address: [address] [place] [address] Result Comment: Kenroy ot exclude H. pylori infection if the specimen collected 3-4 weeks after onset of symptoms. Performed By: #### 2 276-4, 3039-3, , 1987-10 #### [facility] CLIA [id number] [address] [place] [address] [place] HbA1c (Bld)on 07-09-2023 Average glucose Estimated from glycated hemoglobin (Bld) [Mass/Vol] 82 mg/dL Normal [facility] Comment on above: Order Comment: Darci michael Type: BLOOD SPECIMEN Ordering Facility: [facility] Address: [address] [place] [address] Result Comment: eAG: (Estimated average glucose) is a calculated value from HgbA1c and is member services representative of the average blood glucose level in the last 2-3 month period. Performed By: #### 2 276-4, 3040-3, , 1987-10 #### [facility] CLIA [id number] [address] [place] [address] [place] HbA1c (Bld) [Mass fraction] 4.5 % Normal 4.3-5.6 [facility] Comment on above: Order Comment: Darci michael Type: BLOOD SPECIMEN Ordering Facility: [facility] Address: [address] [place] [address] Result Comment: [place] Diabetes Association guidelines indicate that patients with HgbA1c in the range 5.7-6.4% are at increased risk for development of diabetes, and intervention by lifestyle modification may be beneficial. HgbA1c greater or equal to 6.5% is considered diagnostic of diabetes. Performed By: #### 2 276-4, 3040-3, , 1987-10 #### [facility] CLIA [id number] [address] [place] [address] [place] IgA SerPl-mCncon 07-09-2023 IgA [Mass/Vol] 119 mg/dL Normal 70-400 [facility] Comment on above: Order Comment: Darci michael Type: BLOOD SPECIMEN Ordering Facility: [facility] Address: [address] [place] [address] Performed By: #### 2 276-4, 3040-3, , 1987-10 #### [facility] CLIA [id number] [address] [place] [address] [place] Iron and Iron binding capaci ty panelon 07-09-2023 Iron [Mass/Vol] 23 ug/dL Low 41-186 [facility] Comment on above: Order Comment: Darci michael Type: BLOOD SPECIMEN Ordering Facility: [facility] Address: [address] [place] [address] Performed By: #### 3 016-3, 12452-3, 86870-6, 1798-8 #### [facility] CLIA [id number] [address] [place] [address] [place] Iron binding capacity [Mass/Vol] 264 ug/dL Normal 232-386 [facility] Comment on above: Order Comment: Speci men Type: BLOOD SPECIMEN Ordering Facility: [facility] Address: [facility] [place] [address] Performed By: #### 3 016-3, 72808-5, 29742-0, 1798-01 #### [facility] CLIA [id number] [place] [address] [place] Iron/TIBC [Molar ratio] 8.7 % Low 15.0-57.0 [facility] Comment on above: Order Comment: Speci men Type: BLOOD SPECIMEN Ordering Facility: [facility] Address: [address] [place], [place] [address] [address] Performed By: #### 3 016-3, 81087-8, 28463-6, 1798-01 #### [facility] CLIA [id number] [address] [place] [address] [place] Lipase SerPl-cCncon 07-09-19 24 Lipase [Catalytic activity/Vol] 17 U/L Normal 16-61 [facility] Comment on above: Order Comment: Speci men Type: BLOOD SPECIMEN Ordering Facility: [facility] Address: [facility] [place] [address] Performed By: #### 2 276-4, 3039-3, , 1987-10 #### [facility] CLIA [id number] [address] [place] [address] [place] Magnesium SerPl-mCncon 07-09 Magnesium [Mass/Vol] 1.9 mg/dL Normal 1.7-2.3 [facility] Comment on above: Order Comment: Speci men Type: BLOOD SPECIMEN Ordering Facility: [facility] Address: [facility] [place] [address] Performed By: #### 2 276-4, 304-3, , 1987-10 #### [facility] CLIA [id number] [address] [place] [address] [place] TSH SerPl-aCncon 07-09-2023 TSH Qn 1.740 m[IU]/L Normal 0.270-4.200 [facility] Comment on above: Order Comment: Darci michael Type: BLOOD SPECIMEN Ordering Facility: [facility] [address]: [address] [place] [id number] Result Comment: If t he patient is , TSH reference range varies by gestational period: First Trimester (weeks 9-12): 0.180-2.990 mIU/L Second Trimester: 0.110-3.980 mIU/L Third Trimester: 0.480-4.710 mIU/L Mir Lozano et al. A Practical Approach for the Verifications and Determination of Site- and Trimester-Specific Reference Intervals for Thyroid Function tests in . Thyroid, 2019:29:3:412-420. Gerson Tierney, et al. 2017 Guidelines of the [place] Thyroid Association for the Diagnosis and Management of Thyroid Disease during and the . Thyroid, 2017:27:3:315-389. Performed By: #### 2 276-4, 3040-3, , 1987-10 #### [facility] CLIA [id number] [address] [place] [id number] [place] Vit [facility] Cobalamin (Vitamin B12) [Mass/Vol] 1042 pg/mL Normal 232-1245 [facility] Comment on above: Order Comment: Darci michael Type: BLOOD SPECIMEN Ordering Facility: [facility] [place] [id number] Performed By: #### 2 276-4, 3040-3, , 1987-10 #### [facility] CLIA [id number] [address] [facility] [place] [id number] [place] CNOVon 07-06-2023 CNOV Office Visit (EXPLOR ) CHRISTINA BORJAS ([id number]) 2 F Date Time Provider Department 07/06/23 10:50 AM JESSICA DAWSON EXPLOR During your visit today, we recorded the following information about you: Temperature Pulse Respiration Blood pressure 98.1 degrees 85/minute 16/minute 118/81 Jessica Dawson, BRADLEY.FITTER ARMAMENT 07/06/2023 12:26 PM Signed Patient presents with: Rectal Bleeding : Patient presents for evaluation of rectal bleeding that has been going on for the last 2 years. She states she has 6-7 loose bowel movements per day and developed abdominal cramping intermittently 2 months ago. She is followed by GI but does not have a future appt with GI. Her last colonoscopy was done in September 2022 which showed internal hemorrhoids. HPI: Pt here today for rectal bleeding. Seen by GI in the past. LEIGH ANN 06/20/23 with GI. September 2022 sigmoidoscopy in September; hemorrhoids. 06/2022 colonoscopy; normal exam, no biopsies. Has a PCP. Feels not much is being done. Pt states worsening bleeding over the last year. Pt denies vomiting. Pt is having a BM 6-7 times per day. Liquid stool noted after stomach cramping. Worse over the last BM. Some solid stool. Denies constipation. IBS? Celiac? Notes blood in the water, stool, and when she wipes. Home cooked meals. Eliminating dairy; nothing in two weeks. Has not eliminated gluten. Taking probiotic daily. Pt denies anxiety or stress. Pt states she is staying hydrated. Weight is stable. UTI the last two month; antibiotic 2-3 weeks ago. Denies travel outside of the [place]. BP 118/81 Pulse 85 Temp 36.7 ?C (98.1 ?F) (Temporal) Resp 16 HISTORIES No family history on file. No past medical history on file. No past surgical history on file. ALLERGIES No Known Allergies No current outpatient medications on file. No current facility-administered medications for this visit. REVIEW OF SYSTEMS As noted in HPI. PHYSICAL EXAMINATION: General appearance: Well appearing, alert, in no acute distress, well-hydrated, well nourished. Skin: Skin color, texture, turgor normal, no suspicious rashes or lesions Head: Normocephalic Eyes: Anicteric sclera. Oropharynx: Lips, mucosa, and tongue normal, teeth and gums normal, oropharynx normal Lungs: Lungs clear to auscultation. No wheezing, rhonchi, rales Heart: RRR without murmur, gallop, or rubs. No ectopy Abdomen: Normal abdominal exam, Abdomen soft, non-tender. Bowel sounds normal. No masses, organomegaly Extremities: No deformities, edema, skin discoloration, clubbing or cyanosis. There is no problem list on file for this patient. ASSESSMENT/PLAN: 1. Diarrhea, unspecified type - ICD9: 787.91, ICD10: R19.7 (primary diagnosis Celiac? - C. DIFFICILE PCR - OVA + PARA MICROSCOPIC - ENTERIC BACTERIAL PANEL BY PCR 2. Rectal bleeding - ICD9: 569.3, ICD10: K62.5 - CONSULT TO GASTROENTEROLOGY Follow-up with GI for your symptoms. START metamucil 1tsp once daily. STOOL cultures ordered. WORSENING SYMPTOMS, NAUSEA/VOMITING, FEVER, WORSENING ABDOMINAL PAIN, OR RECTAL BLEEDING, GO TO THE NEAREST EMERGENCY DEPARTMENT. SCOOBY Barraza Sarah L, APRN.CNP 07/06/2023 12:25 PM Addendum Follow-up with GI for your symptoms. START metamucil 1tsp once daily. STOOL cultures ordered. WORSENING SYMPTOMS, NAUSEA/VOMITING, FEVER, WORSENING ABDOMINAL PAIN, OR RECTAL BLEEDING, GO TO THE NEAREST EMERGENCY DEPARTMENT. What is a GI bleed? -- GI stands for gastrointestinal. The GI system, or GI tract, includes all of the organs in the body that process food (figure 1). This includes the: ?Esophagus (the tube that connects the mouth to the stomach) ?Stomach ?Small intestine (small bowel) ?Large intestine (colon or large bowel) A GI bleed is when any of these organs start to bleed. Often, you do not know that you are bleeding, because it's happening inside your body. But sometimes, there are signs that it is happening. There are 2 common types of GI bleeds: ? Upper GI bleeds - These affect the esophagus, the stomach, and the first part of the small intestine. ? Lower GI bleeds - These affect the large intestine (colon). Bleeding can also happen in the middle of the small intestine, but this is much less common. This is sometimes called mid-GI bleeding. What are the symptoms of a GI bleed? -- The symptoms depend on whether you have an upper or lower GI bleed. Some people have no symptoms. They find out that they have bleeding when a doctor or nurse does a rectal exam on them or a blood test shows that they have something called anemia. (Anemia is when a person has too few red blood cells.) The symptoms of an upper GI bleed can include: ?Vomiting blood or something that looks like coffee grounds ?Diarrhea or bowel movements that look like black tar - This can happen with lower GI blee (more content not included)... Normal [facility] CNPNon 07-03-2023 CNPN Telephone (PAINLN) CHRISTINA BORJAS ([id number]) 2 F Date Time Provider Department 07/03/23 KAILEY SALGADO During your visit today, we recorded the following information about you: Shahana Ruff MA 07/03/2023 10:55 AM Addendum After reviewing her chart in care everywhere a VM was left with patient stating she was scheduled for a second opinion with Kailey Salgado but she is unable to see patients for for a that ,so she should schedule with DR Gibson for that second opinion and her appointment was cancelled . Shahana Ruff MA Allergies As of Date: 07/03/2023 (Not on File) Date Reviewed: Never Reviewed Reason for Visit: Appointment [186] Cmt: Time change Problem List As Of Date: 07/03/2023 (None) Encounter Status:Closed by SHAHANA RUFF on 07/03/23 Normal [facility] HCG,Urineon 09-18-2022 Beta HCG ( test) Ql (U) Negative Normal [facility] Comment on above: Result Comment: PERF ORMED BY: [facility] [address] [place] [address] PATHOLOGIST PRODUCT SUPPORT MANAGER MARTA OVALLES M.D. Performed By: #### [facility] #### [address] 09-18-2022 L -- ---- Specimen: Received: 09/18/22 Status: VJ Blankenship Num: [id number] Spec Type: Surgical Subm Dr: Roxane Oakley MD Tissues: A Colon Biopsy (RECTAL BX) Procedures: HE/Dedra, Gross/Micro L4 ---- Age/ Patient Sex Location Account Attending Physician ---- Christina Borjas 22/ [id number] Roxane Oakley MD ---- SPEC NUM: [id number] RECD: 09/18/22 STATUS: VJ BLANKENSHIP NUM: [id number] LEIGHANN: 09/18/22 [facility] DR: Roxane Oakley MD ENTERED: 09/18/[address] [facility] [address]: SPEC TYPE: Surgical DEPT: S ORDERED: HE/2, Gross/Micro [...] diagnosis. ---- Specimen: Received: 09/18/22 Status: VJ Blankenship Num: [id number] Spec Type: Surgical Subm Dr: Roxane Oakley MD Tissues: A Colon Biopsy (RECTAL BX) Procedures: HE/2, Gross/Micro L4 ---- Patient: Christina Borjas [id number] (Continued) ---- Specimen: Received: 09/18/22 (Continued) Signed (signature on file) Effie Kimbrough MD 09/19/22 1018 ---- Specimen: Received: 09/18/22 Status: VJ Mullinstavo Num: [id number] Spec Type: Surgical Subm Dr: Roxane Oakley MD Tissues: A Colon Biopsy (RECTAL BX) Procedures: SVITLANA/Tyshawn Colmenares/Joe L4 ---- Patient: Christina Borjas [id number] (Continued) ---- Specimen: Received: 09/18/22 (Continued) CPT Codes 63508 ---- ---- Specimen: Received: 09/18/22-999 Status: VJ Mullinstavo Num: [id number] Spec Type: Surgical Subm Dr: Roxane Oakley MD Tissues: A Colon Biopsy (RECTAL BX) Procedures: Tyshawn COATES/Joe L4 ---- Patient: Christina Borjas [id number] (Continued) ---- Signed (signature on file) Effie Kimbrough MD 09/19/22 1018 [facility] Consultation Noteon 07-31-19 Consultation Note [id number] Normal [facility] Ambulatory Visit Summaryon 0 07-18-2022 [...] Someone Will Contact You Regarding These Appointments [facility] External Ambulatory Referral, Geographic proximity, [place], [facility], possible ulcerative proctitis, 07/11/22 14:42:00 EST, Proctitis Medications What How Much When Why Instructions New mesalamine (Canasa 1000 mg rectal suppository) 1 Suppositories By rectum Once a day (at bedtime) Proctitis Refills: 1 Pickup at [facility]/pharmacy #[id number] Unchanged multivitamin (Multi Vitamins oral tablet) 1 Tablets By Mouth Every day Contact prescribing physician if questions or concerns Pharmacy Information [facility]/pharmacy #[id number]: [address], [place] [id number] [phone] Allergies No Known Allergies No Known Medication Allergies Problems Ongoing - Any problem that you are currently receiving treatment for. BMI 27.0-27.9,adult BRBPR (bright red blood per rectum) Constipation Proctitis Historical - Any problem that you are no longer receiving treatment for. COVID-19 virus infection Exposure to COVID-19 virus Viral illness Normal [facility] General Surgery Office/Clini c Noteon 07-11-2022 General [...] gm q hs; refer to Gastroenterology at [facility], per family request; call with problems/questions. Ordered: mesalamine, 1,000 mg = 1 supp, Rectal, Once a day (at bedtime), # 30 supp, Refills(s) 1, Pharmacy: [facility]/pharmacy #[id number], 165, cm, 05/22/22 13:28:00 EST, Height/Length Dosing, 74.4, kg, 05/22/22 13:28:00 EST, Weight Dosing [facility] External Ambulatory Referral Follow-up No qualifying data [...] Recorded diphtheria/pertussis, acel/tetanus adult 2001 Recorded Normal [facility] Comment on above: Result Comment: Elec tronically Signed By: MARTY MIJARES, Sebastian Marie\Date and Time Signed: 07/11/22 14:55 EST Pathology Noteon 06-29-2022 Pathology Note [id number] 0CD:127 Normal [facility] Outside Colonoscopyon 2022 Outside Colonoscopy [id number] 0CD:127 Normal [facility] POINT OF CARE GLUCOSEon 06-17 Glucose [Mass/Vol] 106 mg/dL Normal 74-106 [facility] Comment on above: Performed By: #### P OCGLUC #### [facility] [address] [address] [address] Lance Mendoza PREG HCG QUALon 06-27-2022 , QUAL Negative Normal NEGATIVE [facility] Comment on above: Performed By: #### P REG #### [facility] [address] [address] [address] Lance Mendoza Lab Reportson 06-21-2022 Lab Reports [id number] 0CD:127 Normal [facility] Covid-19 PCR (CVDTBH)on SARS-CoV-2 (COVID-19) RNA SHANIQUA+probe Ql (Unsp spec) Not detected Normal NOT DETECTED [facility] Comment on above: Result Comment: This test is not yet approved or cleared by the [place] FDA. When there are no FDA-approved or cleared tests available, and other criteria are met, FDA can make tests available under an emergency access mechanism called an Emergency Use Authorization (EUA). The EUA for this test is supported by the [place] of Health and Human Service's (HHS's) declaration [...] consistent with SARS-CoV-2. Performed By: #### C VDTBH #### [facility] [address] [address] [address] Lance Mendoza Consent for Procedure/Surger yon 05-24-2022 Consent for Procedure/Surgery [id number] 0CD:127 [facility] Facesheeton 05-24-2022 Facesheet [id number]#1.0 0CD:127 [facility] Physician Referralon 022 Physician Referral [id number] 0CD:127 [facility] Auth for Release of Medical Recordson 02-01-2022 Auth for Release of Medical Records [id number] CD:127 [facility] Vital Signs Date Time Vital Sign Value Performing Clinician Facility 09-10-2023 09:00-0400 Heart rate 72 /min Nurse 4 Work Phone: [facility] 09-10-2023 09:00-0400 SaO2% (BldA) [Mass fraction] 99 % Nurse 4 Work Phone: [facility] 09-10-2023 08:50-0400 Diastolic blood pressure 72 mm[Hg] Nurse 4 Work Phone: [facility] 09-10-2023 08:50-0400 Respiratory rate 18 /min Nurse 4 Work Phone: [facility] 09-10-2023 08:50-0400 Systolic blood pressure 106 mm[Hg] Nurse 4 Work Phone: [facility] 09-10-2023 07:02-0400 Body temperature 97.2 [degF] Nurse 4 Work Phone: [facility] 07-16-2023 13:12-0500 Body height 167.6 cm Jenaro Cavanaugh MD Work Phone: [facility] 07-16-2023 13:12-0500 Body temperature 97.7 [degF] Jenaro Cavanaugh MD Work Phone: [facility] 07-16-2023 13:12-0500 Body weight 71.22 kg Jenaro Cavanaugh MD Work Phone: [facility] 07-16-2023 13:12-0500 Diastolic blood pressure 72 mm[Hg] Jenaro Cavanaugh MD Work Phone: [facility] 07-16-2023 13:12-0500 Heart rate 83 /min Jenaro Cavanaugh MD Work Phone: [facility] 07-16-2023 13:12-0500 SaO2% (BldA) [Mass fraction] 100 % Jenaro Cavanaugh MD Work Phone: [facility] 07-16-2023 13:12-0500 Systolic blood pressure 116 mm[Hg] Jenaro Cavnaaugh MD Work Phone: [facility] 07-13-2023 18:55-0500 Diastolic blood pressure 59 mm[Hg] [facility] 07-13-2023 18:55-0500 Heart rate 95 /min [facility] 07-13-2023 18:55-0500 Respiratory rate 17 /min [facility] 07-13-2023 18:55-0500 SaO2% (BldA) [Mass fraction] 100 % [facility] 07-13-2023 18:55-0500 Systolic blood pressure 96 mm[Hg] [facility] 07-13-2023 14:09-0500 Body height 167.64 cm [facility] 07-13-2023 14:09-0500 Body temperature 98.3 [degF] [facility] 07-13-2023 14:09-0500 Body weight 72.1 kg [facility] 02-14-2023 08:45-0400 Body height 167.64 cm [employer] Other [employer] Other 02-14-2023 08:45-0400 Body mass index (BMI) [Ratio] 25.98 kg/m2 [employer] Other [employer] Other 02-14-2023 08:45-0400 Body weight 73.03 kg Imad Asa[facility] Other [employer] Other 02-14-2023 08:45-0400 Diastolic blood pressure 73 mm[Hg] [facility] Other [employer] Other 02-14-2023 08:45-0400 Systolic blood pressure 121 mm[Hg] [facility] Other [employer] Other 07-26-2022 09:45-0500 Body height 167.64 cm Imad Asa[facility] Other [employer] Other 07-26-2022 09:45-0500 Body mass index (BMI) [Ratio] 27.6 kg/m2 [employer] Other [employer] Other 07-26-2022 09:45-0500 Body weight 77.57 kg Imad Asa[facility] Other [employer] Other 07-26-2022 09:45-0500 Diastolic blood pressure 64 mm[Hg] [facility] Other [employer] Other 07-26-2022 09:45-0500 Systolic blood pressure 101 mm[Hg] [facility] Other [employer] Other 05-22-2022 13:21-0500 Blood Pressure Location Sebastian FERGUSON General [facility] 05-22-2022 13:21-0500 Diastolic blood pressure 74 mm[Hg] Sebastian FERGUSON General Surgery [place] 05-22-2022 13:21-0500 Heart rate 72 /min Sebastian FERGUSON General Surgery [place] 05-22-2022 13:21-0500 Respiratory rate 16 /min Sebastian FERGUSON General Surgery [place] 05-22-2022 13:21-0500 Systolic blood pressure 118 mm[Hg] Sebastian FERGUSON General [facility] [place] Encounters Encounter Date Encounter Type Care Provider Facility Start: 09-10-2023 End: 09-10-2023 ambulatory Darrel Ayala (Pharmacist) [facility] Start: 09-10-2023 Patient encounter procedure Darrel Ayala (Pharmacist) [facility] Comment on above: SPP Inflammatory Con ditions - Treatment Referral (Stelara); Insurance Authorization (PA submission pending) Start: 09-10-2023 End: 09-10-2023 Subsequent hospital visit by physician Nurse Hatfield Proc 4 Work Phone: Gastroenterology Start: 08-13-2023 ambulatory Dalton Ribakow PA-C Work Phone: Gastroenterology Comment on above: Insurance denied use of Stelara Start: 08-09-2023 End: 08-09-2023 ambulatory DALTON RIBAKOW Facility:[facility] Start: 08-09-2023 End: 08-09-2023 Subsequent hospital visit by physician General [facility] Cha Mc Work Phone: Radiology Comment on above: Ulcerative pancoliti s with rectal bleeding (HCC) [K51.011] Start: 08-05-2023 Orders Only Dalton Ribakow PA-C Work Phone: Gastroenterology Comment on above: Ulcerative pancoliti s with rectal bleeding (HCC) (Primary Dx) Start: 07-31-2023 End: 07-31-2023 ambulatory JESSICA DAWSON Facility:[facility] Start: 07-25-2023 End: 07-25-2023 ambulatory Dalton Ribakow PA-C Work Phone: Gastroenterology Comment on above: Ulcerative pancoliti s with rectal bleeding (HCC) Start: 07-25-2023 End: 07-25-2023 Telemedicine consultation with patient Dalton Mark KISHAFabiJackelyn Work Phone: [facility] Start: 07-19-2023 End: 07-19-2023 ambulatory JESSICA L HERSTEK Facility:[facility] Start: 07-18-2023 End: 07-18-2023 Orders Only Dalton Mark PA-C Work Phone: Gastroenterology Comment on above: IBD (inflammatory mercedes wel disease) (Primary Dx) Start: 07-16-2023 End: 07-17-2023 [facility] Start: 07-16-2023 End: 07-17-2023 ambulatory JESSICA L HERSTEK Facility:[facility] Start: 07-16-2023 End: 07-16-2023 Patient encounter procedure Jenaro Cavanaugh MD Work Phone: Colorectal Surgery Comment on above: OPENED IN ERROR Start: 07-13-2023 End: 07-13-2023 Emergency department patient visit NON STAFF Facility:[facility] Start: 07-13-2023 End: 07-13-2023 Emergency department patient visit [place] Work Phone: Start: 07-12-2023 End: 07-12-2023 ambulatory JESSICA L HERSTEK Facility:[facility] Start: 07-11-2023 End: 07-11-2023 ambulatory JESSICA L HERSTEK Facility:[facility] Start: 07-09-2023 End: 07-10-2023 ambulatory JESSICA L HERSTEK [facility] Start: 07-06-2023 End: 07-06-2023 [facility] Start: 06-12-2023 End: 06-12-2023 ambulatory Imad Asaad Other [employer] Other Start: 06-12-2023 Telephone encounter Imad Asaad [facility] Start: 06-04-2023 End: 06-04-2023 ambulatory Imad Asaad Other [employer] Other Start: 06-04-2023 Telephone encounter Imad Asaad [facility] Start: 04-19-2023 End: 04-19-2023 ambulatory Imad Asaad Other [employer] Other Start: 04-19-2023 Telephone encounter Imad Asaad [facility] Start: 02-14-2023 End: 02-14-2023 ambulatory Imad Asaad Other [employer] Other Start: 02-14-2023 Office outpatient ne w 45 minutes Imad Asaad [facility] Start: 09-18-2022 End: 09-18-2022 ambulatory Imad Asaad Facility:[facility] Start: 07-26-2022 End: 07-26-2022 ambulatory Imad Asaad Other [employer] Other Start: 07-26-2022 Office consultation new/estab patient 60 min Imad Asaad [facility] Start: 07-11-2022 End: 07-12-2022 ambulatory Sebastian FERGUSON Facility:[facility] Start: 07-11-2022 End: 07-11-2022 Patient encounter procedure Sebastian FERGUSON General Surgery [facility] Start: 06-27-2022 End: 06-28-[address] SEBASTIAN Louis Facility:[facility] Start: 06-24-2022 Encounter for preprocedural laboratory examination DR SEBASTIAN Louis [facility] Start: 06-20-2022 End: 06-21-[address] SEBASTIAN Louis Facility:[facility] Start: 06-20-2022 End: 06-21-2022 Encounter for preprocedural laboratory examination DR SEBASTIAN FERGUSON . Facility:[facility] Start: 05-22-2022 End: 05-23-2022 ambulatory Sebastian ARAGONMarta Facility:[facility] Start: 05-22-2022 End: 05-22-2022 Patient encounter procedure Sebastian FERGUSON General Surgery [facility] Start: 04-18-2022 ambulatory Sebastian FERGUSON Facility : [facility] Procedures Date Procedure Procedure Detail Performing Clinician Start: 08-09-2023 Radiologic exam ches t 2 views Dalton Mark PA-C Work Phone: Start: 07-13-2023 Computed tomography of abdomen and pelvis with contrast Start: 06-27-2022 Colonoscopy Sebastian NI LL Extraction of wisdom tooth M rolan MARTY Pilonidal abscess Sebastian ROBBIE LL Plan of Treatment Date Care Activity Detail Author Start: 07-09-2024 GC (Gonorrhea) Scree falguni () GC (Gonorrhea) Screening (-) [facility] Comment on above: Postponed from 05/27 (Declined at this time) Start: 07-09-2024 Hepatitis C screening Hepatitis C [facility] Comment on above: Postponed from 05/27 (Declined at this time) Start: 07-09-2024 HIV screening HIV Screening [facility] Comment on above: Postponed from 05/27 (Declined at this time) Start: 07-09-2024 Screening for Chlamy josefa trachomatis Chlamydia Screening () [facility] Comment on above: Postponed from 05/27 (Declined at this time) Start: 02-16-2024 Influenza vaccination Influenza Vacc ine (#1) [facility] Start: 07-18-2023 End: 10-17-2023 BLOOD TB SCREEN BLOOD TB SCREEN Lab Routine IBD (inflammatory bowel disease) Expected: 07/18/2023, Expires: 10/17/2023 [facility] Work Phone: Comment on above: Expected: 07/18/2023 , Expires: 10/17/2023 Start: 07-18-2023 End: 10-17-2023 Chronic hepatitis differentiation between hepatitis B and C virus panel - Serum or Plasma HEP REMOTE PANEL BL Lab Routine IBD (inflammatory bowel disease) Expected: 07/18/2023, Expires: 10/17/2023 [facility] Work Phone: Comment on above: Expected: 07/18/2023 , Expires: 10/17/2023 Start: 07-18-2023 End: 10-17-2023 TPMT PHENOTYPE/ENZYME ACTIVITY TPMT PHENOTYPE/ENZYME ACTIVITY Lab Routine IBD (inflammatory bowel disease) Expected: 07/18/2023, Expires: 10/17/2023 [facility] Work Phone: Comment on above: Expected: 07/18/2023 , Expires: 10/17/2023 Start: 06-17-2023 Depression Assessment Depression Ass essment [facility] Start: 02-15-2023 Covid-19 Vaccine () Covid-19 Vaccine () [facility] Start: 02-15-2023 Influenza vaccination Influenza Vacc ine (#1) [facility] Start: 2022 Screening for malign ant neoplasm of cervix Pap Testing [facility] Start: 2020 Hepatitis A Vaccine (1 of 2 - Risk 2-dose series) Hepatitis A Vaccine (1 of 2 - Risk 2-dose series) [facility] Start: 2020 Shingrix Vaccine (1 of 2) Brantley grix Vaccine (1 of 2) [facility] Start: 2019 Anxiety Screening Anxiety Screening [facility] Start: 2019 Depression Screening Depression Scre ening [facility] Start: 2016 HPV Vaccine (1 - 3-d ose series) HPV Vaccine (1 - 3-dose series) [facility] Start: 2015 Peds To Adult Transi tion Annual Assessment Peds To Adult Transition Annual Assessment [facility] Start: 01-22-2014 Urine microalbumin profile DTaP,Tdap,Td Vaccine (2 - Tdap) [facility] Start: 2013 Peds To Adult Transi tion Initial Discussion Peds To Adult Transition Initial Discussion [facility] Start: 2012 Screening for malign ant neoplasm of cervix Cervical Cancer Screening [facility] Start: 2010 HPV Vaccine (1 - 2-d ose series) HPV Vaccine (1 - 2-dose series) [facility] Start: 2010 HPV Vaccine (1 - Ris k 3-dose series) HPV Vaccine (1 - Risk 3-dose series) [facility] Start: 2007 Pneumococcal vaccination Pneum ococcal Vaccine (1 of 2 - PCV) [facility] Start: 2006 Covid-19 Vaccine (#1) Covid-19 Vacci ne (#1) [facility] Start: 2001 Covid-19 Vaccine (#1) Covid-19 Vacci ne (#1) [facility] Patient Education Colitis (DC) [facility] Work Phone: Patient referral [facility] Work Phone: End: 09-03-2024 XR Chest PA and Lateral XR CHEST 2V FRONTAL/LAT Radiology Routine Ulcerative pancolitis with rectal bleeding (HCC) 1 Occurrences starting 08/05/2023 until 09/03/2024 [facility] Work Phone: Comment on above: 1 Occurrences starti ng 08/05/2023 until 09/03/2024 [facility] Immun[facility] Immunization Date Immunization Notes Care Provider Mario george 01-21-2014 meningococcal ACWY vaccine, unspecified formulation Sebastian FERGUSON [facility] [place] 01-21-2014 tetanus and diphther ia toxoids, adsorbed, preservative free, for adult use (2 Lf of tetanus toxoid and 2 Lf of diphtheria toxoid) Sebastian FERGUSON [facility] [place] 08-06-2006 measles, mumps and rubella virus vaccine Sebastian FERGUSON [facility] [place] 08-06-2006 poliovirus vaccine, unspecified formulation Sebastian FERGUSON [facility] [place] 08-06-2006 tetanus toxoid, reduced diphtheria toxoid, and acellular pertussis vaccine, adsorbed Sebastian FERGUSON [facility] [place] 08-06-2006 varicella virus vaccine Sebastian NILL [facility] [place] 11-11-2002 haemophilus influenz ae type b vaccine, HbOC conjugate Sebastian NILL [facility] [place] 11-11-2002 measles, mumps and rubella virus vaccine Sebastian NILL [facility] [place] 11-11-2002 tetanus toxoid, reduced diphtheria toxoid, and acellular pertussis vaccine, adsorbed Sebastian NILL [facility] [place] 11-11-2002 varicella virus vaccine Sebastian NILL [facility] [place] 05-08-2002 haemophilus influenz ae type b vaccine, HbOC conjugate Sebastian NILL [facility] [place] 05-08-2002 hepatitis B vaccine, adult dosage Sebastian NILL [facility] [place] 05-08-2002 poliovirus vaccine, unspecified formulation Sebastian NILL [facility] [place] 05-08-2002 tetanus toxoid, reduced diphtheria toxoid, and acellular pertussis vaccine, adsorbed Sebastian NILL [facility] [place] 2001 haemophilus influenz ae type b vaccine, HbOC conjugate Sebastian NILL [facility] [place] 2001 hepatitis B vaccine, adult dosage Sebastian NILL [facility] [place] 2001 poliovirus vaccine, unspecified formulation Sebastian NILL [facility] [place] 2001 tetanus toxoid, reduced diphtheria toxoid, and acellular pertussis vaccine, adsorbed Sebastian NILL [facility] [place] 2001 haemophilus influenz ae type b vaccine, HbOC conjugate Sebastian FERGUSON [facility] [place] 2001 hepatitis B vaccine, adult dosage Sebastian ARAGONL [facility] [place] 2001 poliovirus vaccine, unspecified formulation Sebastian ARAGONL [facility] [place] 2001 tetanus toxoid, reduced diphtheria toxoid, and acellular pertussis vaccine, adsorbed Sebastian FERGUSON [facility] [place] NEGATED: Highlighted row has not occurred!05-22-2022 influenza virus vaccine, unspecified formulation Sebastian FERGUSON General [facility] [place] Payers Date Payer Category Payer Self-pay 2022 Unknown [employer] PPO [id number] 2022-Present [phone] [address] [place] [address] PPO [id number] 2022 Unknown [id number] 2001 Unknown [id number] 3 2001 Unknown [id number] 3 2001 Unknown [id number] 7 2001 Unknown [id number] 7 2001 Unknown [id number] 7 2001 Unknown [id number] 7 1958 [facility] [id number] 1959 Unknown [id number] Unknown [id number] 1 Unknown [id number] 1 Social History Date Type Detail Facility Start: 05-22-2022 End: 07-16-2023 Tobacco smoking status Never smoked tobacco (finding) [facility] Tobacco smoking status Never [facility] Start: 07-03-2023 End: 07-16-2023 Sex Assigned At Female Claudio Garcia [facility] Start: 2001 Sex Assigned At Female [facility] Start: 07-16-2023 Tobacco use and exposure Smokeless tobacco non-user [facility] Start: 07-16-2023 End: 07-18-2023 Alcohol intake Ex-drinker (finding) [facility] Start: 07-03-2023 End: 07-16-2023 History of Social function [facility] Start: 2001 Sex Assigned At Not on file [facility] Functional Status Date Assessment Result Facility 05-22-2022 Functional Status N/A [facility] Clinical Notes 05-22-2022 to 09-10-2023 Emory Mckeon - 09/10/2023 9:47 AM Emma Soto RN - 09/10/2023 8:59 AM EDTTelephone Brenda - Carol Villalobos - 09/03/2023 5:49 PM Dalton Mazariegos PA-C - 07/25/2023 4:05 PM EST Note Date & Type Note Facility 09-10-2023 Note HNO ID: [id number] Author: ?, ?, ? Service: ? Author Type: ? Type: Progress Notes Filed: 09/10/2023 09:48 Note Text: [facility] received prescription(s) for Stelara from Dr. Mark. Benefits investigation was conducted, indicating that a prior authorization is required by patients plan with [facility]. Encounter will be updated once prior authorization has been submitted by [facility]. Emory Mckeon CPhT [facility] Pharm[facility], Inflammatory P: [phone] F: [phone] [facility] 09-10-2023 History of Presen t illness Narrative [facility] received prescription(s) for Stelara from Dr. Mark. Benefits investigation was conducted, indicating that a prior authorization is required by patients plan with [employer]. Encounter will be updated once prior authorization has been submitted by [facility]. [facility] P: [phone] F: [phone] documented in this encounter [facility] 09-10-2023 Nurse Note AMBULATORY PATIENT EDUCATION NOTE TOPIC: Stelara READINESS TO LEARN INSTRUCTION PROVIDED TO: Patient, readness to learn accessed prior to procedure and Family member COGNITIVE ABILITY: Alert and oriented PTED MOTIVATION TO LEARN: Interested FAMILY SUPPORT: High - Very involved in pt care IPATIENT LEARNS BEST BY: Individual Instruction Verbal Instruction FACTORS AFFECTING LEARNING: None PHYSICAL LIMITATIONS AFFECTING LEARNING: None LEARNING RESPONSE METHOD OF INSTRUCTION: Individual instruction PATIENT / FAMILY RESPONSE: Verbalizes understanding of: WORSENING CONDITION-Signs and symptoms of a worsening condition that warrant a call to the physician FOLLOW-UP PLAN: Complete - No need for follow-up Electronically Signed By: Emma Proctor RN Christina Borjas Reason for therapy: IBD Ordering Physician: Deedee Supervising/Billing Physician: Paige Pre-Medications Administered: No Medications Administered: Stelara (See MAR) Dose #: 1 Start: 0750AM / Stop: 0855AM Fevers in last 7 days: No / Rash: No Infusion tolerated well? No IV: See avatar Vital Signs: See Flow sheets Additional Notes if applicable: N/A documented in this encounter [facility] 09-03-2023 Miscellaneous Notes Images from the original note were not included. Auth/Cert 08/22/2023 8:29 AM June Ivy - - Note: === PHARMACY TEAM ==== APPROVAL RECEIVED Benefit Type: Medical Insurance Name: ANTHEM Authorization received via fax Drug Name(s) & HCPCS Code(s): ISABELLARA [id number] Approval Date Range: 07/26/23 to 09/20/23 Approval #: [id number] Dose & Frequency: 390 MG ONCE # Visits/Treatments (if applicable): 1 Temporary Site of Care Approval: SCANNED APPROVAL . Type Date User Summary Attachment Precertification Note 08/12/2023 1:57 PM Umm Cano MA - - Note: === PHARMACY TEAM ==== PEER TO PEER/APPEAL REQUESTED PROVIDER TO COMPLETE P2P or Appeal: appeal Payer: anthem DOS: [facility] Drug Name(s) & HCPCS/CPTCode(s): j3358 perry Dx code(s) submitted: K51.011 (ICD-10-CM) - Ulcerative pancolitis with rectal bleeding (HCC) Provider: DALTON MARK Peer to Peer/Appeal reason: Timeframe to complete: 30 days from 08.09.23 Date sent to provider: 08.12.23 Courtesy page sent (PRN): No . Type Date User Summary Attachment Auth/Cert 08/12/2023 11:19 AM René Ribeiro - - Note: === PHARMACY TEAM ==== Case Note/ Misc Comment Denial letter uploaded in patients chart . Type Date User Summary Attachment Precertification Note 08/09/2023 4:16 PM Umm Cano MA - - Note: === PHARMACY TEAM ==== ADDITIONAL INFORMATION NEEDED/REQUESTED Case Submitted: Yes Request Type: Payor Waiting for denial letter. energy projects lead leroy kingston, . Type Date User Summary Attachment Auth/Cert 08/09/2023 9:54 AM René Ribeiro - - Note: === PHARMACY TEAM ==== CASE TO REVIEW Date Received: 08/09/2023 Received by: Fax Emailed to: Umm Cano Email Sent (Date & Time): 08/09/23 9:22 AM Reason for Review: the case have been denied due to review of the case dose not show any result for medically necessity and that patient is having any active tb infection Appeal: for appeal information have to wait for the fax letter as it is faxed in on [phone] or have to call on no. Back of member id card.also. will upload the letter as we rec it Denial date:08/01/2023 Case [id number] Phone # Called / Insurance Rep Name / Ref #: [email or web address] / [id number]/ [id number] . Type Date User Summary Attachment Auth/Cert 08/06/2023 9:18 AM René Ribeiro - - Note: === PHARMACY TEAM ==== CASE STATUS CHECK Date of Service: TBS Payor: ADRIA [place] Follow up by phone Phone # Called / Insurance Rep Name / Ref #: [id number] / [id number]/ [id number] [place] # for Call: NA Outcome: Pending. Pending Case: [id number] Estimated Time for Outcome: 24-48 hrs . Type Date User Summary Attachment Precertification Note 07/31/2023 9:39 AM Saadia Garrett - - Note: === PHARMACY TEAM ==== CASE STATUS CHECK Date of Service: tbs Payor: Adria Pugh Follow up by phone Phone # Called / Insurance Rep Name / Ref #: [email or web address] / [id number] / [phone] [place] # for Call: N/A Outcome: Pending. Pending Case: [id number] Estimated Time for Outcome: 5 Cdays. . Type Date User Summary Attachment Precertification Note 07/26/2023 4:01 PM Umm Cano MA - - Note: === PHARMACY TEAM ==== AUTHORIZATION SUBMITTED Benefit Type: Medical Submission Type: Authorization Servicing Location Tax ID: [id number] Initial or Renewal: Initial Submitted By: Fax Fax #: [phone] Fax [place] #: [id number] Payor: adria CARLISLE Drug name(s) & HCPCS Code(s): J3358 - USTEKINUMAB, IV INJECT, 1 MG Dx Code & Description: K51.011 Ulcerative pancolitis with rectal bleeding Date of Service: tbs Dose & Frequency: 390mg Supporting Clinical Documentation Sent/Uploaded/Referenced: ov 07.25.23, colonoscopy 09.18.22 Follow Up (Phone #): call Images from the original note were not included. Dalton Mark PA-C You; Carol Villalobos 33 minutes ago (9:55 AM) Can we try to resend the TB test and X-ray as they are saying they did not receive Fax Dalton Mark PA-C [facility]. PMH of recent diagnosis of Ulcerative Colitis. Perry BEARD has been denied due to no details provided regarding medical necessity for illness. Insurance may consider approval in certain situations (had a TB test). TB blood test completed on 07/31/2023 and was indeterminate. CXR on 08/09/2023 was normal. [id number] is required to be done before all related appeals have been completed. Patient is aware of the PA denial. documented in this encounter [facility] 08-09-2023 Note HNO ID: [id number] Author: ELIZABETH FOX RT(R) Service: ? Author Type: Technologist Type: Progress Notes Filed: 08/09/2023 10:32 Note Text: Radiology Service Progress Note PATIENT NAME: Christina Borjas DATE OF SERVICE: August 09, 2023 TIME: 10:32 AM PATIENT IDENTITY VERIFICATION COMPLETED USING TWO (2) IDENTIFIERS: Name and Date of confirmed by patient verbally. FALL SCREENING: Has the patient had 2 falls in the last year or 1 fall with injury or currently using an Ambulatory Assistive Device (Walker, Cane, Wheelchair, Crutches, etc.)? No PATIENT GENDER DATA: Female. status: : No status: NO. PATIENT RELEVANT IMPLANT DATA REVIEWED: Not Applicable PATIENT PRESENTS WITH AN IMPLANTABLE OR ATTACHED CONVENIENCE STORE CLERK: No RADIOLOGY DEPARTMENT: General X-ray: Exam(s) Completed: Chest X-Ray PERIPHERAL IV DATA: Not applicable SIGNED BY: RT Annie(R) August 09, 2023 10:32 AM [facility] 08-09-2023 History of Presen t illness Narrative Radiology Service Progress Note PATIENT NAME: Christina Borjas DATE OF SERVICE: August 09, 2023 TIME: 10:32 AM PATIENT IDENTITY VERIFICATION COMPLETED USING TWO (2) IDENTIFIERS: Name and Date of confirmed by patient verbally. FALL SCREENING: Has the patient had 2 falls in the last year or 1 fall with injury or currently using an Ambulatory Assistive Device (Walker, Cane, Wheelchair, Crutches, etc.)? No PATIENT GENDER DATA: Female. status: : No status: NO. PATIENT RELEVANT IMPLANT DATA REVIEWED: Not Applicable PATIENT PRESENTS WITH AN IMPLANTABLE OR ATTACHED CONVENIENCE STORE CLERK: No RADIOLOGY DEPARTMENT: General X-ray: Exam(s) Completed: Chest X-Ray PERIPHERAL IV DATA: Not applicable SIGNED BY: RT Annie(R) August 09, 2023 10:32 AM documented in this encounter [facility] 07-25-2023 Note HNO ID: [id number] Author: DALTON MARK PA-C Service: ? Author Type: Physician Polls Or Surveys Interviewer Type: Progress Notes Filed: 07/25/2023 16:29 Note Text: Virtual Follow Up Visit Provider Location: [facility] Patient Location: Patient Home or Place of Residence SUBJECTIVE Christina Borjas [id number] 2000 has requested a video telemedicine for follow up of ulcerative colitis. Last seen 07/16/2023. IBD History (copied and updated from my prior notes) Ms. Borjas is a 23 year old female with a recent diagnosis of Ulcerative Colitis Changes and test results since last visit: Currently 6 BMs daily some improvement on Prednisone. Still with cramping and fatigue. Still with nocturnal defecation. Still with blood in the BMs. Good appetite tolerating diet Still on Prednisone 40 mg daily with taper Current Clinical Symptoms # of bowel movements daily: 6 Consistency: soft Bloody bowel movements: yes Urgency: yes Abdominal pain: yes Abdominal distention: no Nausea/vomiting: no Weight loss over last 3 months: no Diagnosis Ulcerative Colitis: Dx 2023 Phenotype Extent: left sided Severity: Severe Prior Medications/Dates/Reason for Switch Surgery: No: Systemic steroids last year: currently Enteric or rectal steroids last year: No Systemic 5-ASA: No Local 5-ASA: No Thiopurines: No Methotrexate: No Biologics: starting Stelera Small molecules: No Current Medications Systemic steroids Labs TB Status: Unknown Hepatitis B Status: Unknown TPMT: Unknown Vaccines if on biologic therapy (Instructed to avoid live vaccines): Immunization History Administered Date(s) Administered Haemophilus influenzae b (HbOC) vaccine, 4-dose series (HIBTITER) 2001 2001 05/08/2002 11/11/2002 TD Adult 01/21/2014 hepatitis B (HepB) vaccine, 3-dose series, age 20+ yr (ENGERIX-B, RECOMBIVAX HB) 2001 2001 05/08/2002 measles mumps rubella (MMR) vaccine (M-M-R II, PRIORIX) 11/11/2002 08/06/2006 meningococcal (MenACWY) vaccine, quadrivalent, unspecified formulation 01/21/2014 poliovirus vaccine, unspecified formulation 2001 2001 05/08/2002 08/06/2006 tetanus diphtheria pertussis (Tdap) vaccine, age 7+ yr (ADACEL, BOOSTRIX) 2001 2001 05/08/2002 11/11/2002 08/06/2006 varicella (MICHA) vaccine (VARIVAX) 11/11/2002 08/06/2006 Current Outpatient Medications Medication Sig Dispense Refill predniSONE (DELTASONE) 5 mg tablet Take 8 tablets by mouth once daily for 7 days, THEN 7 tablets once daily for 7 days, THEN 6 tablets once daily for 7 days, THEN 5 tablets once daily for 7 days, THEN 4 tablets once daily for 7 days, THEN 3 tablets once daily for 7 days, THEN 2 tablets once daily for 7 days, THEN 1 tablet once daily for 7 days. 252 tablet 0 amoxicillin-clavulanate potassium (AUGMENTIN) 875-125 mg per tablet Take 1 tablet by mouth every 12 hours. dicyclomine (BENTYL) 10 mg capsule Take 1 capsule by mouth before meals and at bedtime. 120 capsule 0 ferrous sulfate 325 mg (65 mg iron) tablet Take 1 tablet by mouth two times a day. 180 tablet 0 No current facility-administered medications for this visit. ALLERGIES No Known Allergies PAST SURGICAL HISTORY Procedure Laterality Date PAST SURGICAL HISTORY OF wisdom teeth ___PERSONAL HABITS: Tobacco: No Alcohol: No NSAID USE: no Review of Systems: GENERAL:No weight loss, malaise or fevers HEENT:Negative for frequent or significant headaches, No changes in hearing or vision, no nose bleeds or other nasal problems NECK:Negative for lumps, goiter, pain and significant neck swelling RESPIRATORY: Negative for cough, hemoptysis, wheezing, COPD, dyspnea or shortness of breath CARDIOVASCULAR: Negative for chest pain, leg swelling, hypertension, CHF or palpitations GASTROINTESTINAL: See HPI GENITOURINARY: No history of dysuria, frequency or incontinence FILM ARCHIVIST: Negative for abnormal vaginal bleeding, abnormal vaginal discharge MUSCULOSKELETAL: Negative for joint pain or swelling, back pain or muscle pain NEUROLOGIC:Negative for focal numbness or weakness, headaches and dizziness or syncope. SKIN:Negative for lesions, rash, and itching PSYCHIATRIC: Negative for sleep disturbance, mood disorder and recent psychosocial stressors. HEMATOLOGIC/LYMPHATIC/IMMUNOLOGI C:Negative for prolonged bleeding, bruising easily or swollen nodes ENDOCRINE: Negative for cold or heat intolerance, polyuria, polydipsia and goiter The remainder of the ROS was negative. PHYSICAL EXAMINATION General: alert and appropriate, in no distress and well-hydrated, well nourished , Head: normocephalic, no abnormality or lesion noted, Eyes: visual acuity is grossly normal, no injection,, and EOMI, Oropharynx: moist mucus membranes, no tonsillar hypertrophy/exudate, uvula midline and pharynx non-erythematous, lips, teeth and gums are without obvious lesion, Neck: full RO (more content not included)... [facility] 02-08-2024 History of Presen t illness Narrative Virtual Follow Up Visit Provider Location: [facility] Patient Location: Patient Home or Place of Residence MIGUEL A Borjas [id number] 2000 has requested a video telemedicine for follow up of ulcerative colitis. Last seen 07/16/2023. IBD History (copied and updated from my prior notes) Ms. Borjas is a 23 year old female with a recent diagnosis of Ulcerative Colitis Changes and test results since last visit: Currently 6 BMs daily some improvement on Prednisone. Still with cramping and fatigue. Still with nocturnal defecation. Still with blood in the BMs. Good appetite tolerating diet Still on Prednisone 40 mg daily with taper Current Clinical Symptoms # of bowel movements daily: 6 Consistency: soft Bloody bowel movements: yes Urgency: yes Abdominal pain: yes Abdominal distention: no Nausea/vomiting: no Weight loss over last 3 months: no Diagnosis Ulcerative Colitis: Dx 2023 Phenotype Extent: left sided Severity: Severe Prior Medications/Dates/Reason for Switch Surgery: No: Systemic steroids last year: currently Enteric or rectal steroids last year: No Systemic 5-ASA: No Local 5-ASA: No Thiopurines: No Methotrexate: No Biologics: starting Stelera Small molecules: No Current Medications Systemic steroids Labs TB Status: Unknown Hepatitis B Status: Unknown TPMT: Unknown Vaccines if on biologic therapy (Instructed to avoid live vaccines): Immunization History Administered Date(s) Administered Haemophilus influenzae b (HbOC) vaccine, 4-dose series (HIBTITER) 2001 2001 05/08/2002 11/11/2002 TD Adult 01/21/2014 hepatitis B (HepB) vaccine, 3-dose series, age 20+ yr (ENGERIX-B, RECOMBIVAX HB) 2001 2001 05/08/2002 measles mumps rubella (MMR) vaccine (M-M-R II, PRIORIX) 11/11/2002 08/06/2006 meningococcal (MenACWY) vaccine, quadrivalent, unspecified formulation 01/21/2014 poliovirus vaccine, unspecified formulation 2001 2001 05/08/2002 08/06/2006 tetanus diphtheria pertussis (Tdap) vaccine, age 7+ yr (ADACEL, BOOSTRIX) 2001 2001 05/08/2002 11/11/2002 08/06/2006 varicella (MICHA) vaccine (VARIVAX) 11/11/2002 08/06/2006 Current Outpatient Medications Medication Sig Dispense Refill predniSONE (DELTASONE) 5 mg tablet Take 8 tablets by mouth once daily for 7 days, THEN 7 tablets once daily for 7 days, THEN 6 tablets once daily for 7 days, THEN 5 tablets once daily for 7 days, THEN 4 tablets once daily for 7 days, THEN 3 tablets once daily for 7 days, THEN 2 tablets once daily for 7 days, THEN 1 tablet once daily for 7 days. 252 tablet 0 amoxicillin-clavulanate potassium (AUGMENTIN) 875-125 mg per tablet Take 1 tablet by mouth every 12 hours. dicyclomine (BENTYL) 10 mg capsule Take 1 capsule by mouth before meals and at bedtime. 120 capsule 0 ferrous sulfate 325 mg (65 mg iron) tablet Take 1 tablet by mouth two times a day. 180 tablet 0 No current facility-administered medications for this visit. ALLERGIES No Known Allergies PAST SURGICAL HISTORY Procedure Laterality Date PAST SURGICAL HISTORY OF wisdom teeth ___PERSONAL HABITS: Tobacco: No Alcohol: No NSAID USE: no Review of Systems: GENERAL:No weight loss, malaise or fevers HEENT:Negative for frequent or significant headaches, No changes in hearing or vision, no nose bleeds or other nasal problems NECK:Negative for lumps, goiter, pain and significant neck swelling RESPIRATORY: Negative for cough, hemoptysis, wheezing, COPD, dyspnea or shortness of breath CARDIOVASCULAR: Negative for chest pain, leg swelling, hypertension, CHF or palpitations GASTROINTESTINAL: See HPI GENITOURINARY: No history of dysuria, frequency or incontinence FILM ARCHIVIST: Negative for abnormal vaginal bleeding, abnormal vaginal discharge MUSCULOSKELETAL: Negative for joint pain or swelling, back pain or muscle pain NEUROLOGIC:Negative for focal numbness or weakness, headaches and dizziness or syncope. SKIN:Negative for lesions, rash, and itching PSYCHIATRIC: Negative for sleep disturbance, mood disorder and recent psychosocial stressors. HEMATOLOGIC/LYMPHATIC/IMMUNOLOGI C:Negative for prolonged bleeding, bruising easily or swollen nodes ENDOCRINE: Negative for cold or heat intolerance, polyuria, polydipsia and goiter The remainder of the ROS was negative. PHYSICAL EXAMINATION General: alert and appropriate, in no distress and well-hydrated, well nourished , Head: normocephalic, no abnormality or lesion noted, Eyes: visual acuity is grossly normal, no injection,, and EOMI, Oropharynx: moist mucus membranes, no tonsillar hypertrophy/exudate, uvula midline and pharynx non-erythematous, lips, teeth and gums are without obvious lesion, Neck: full ROM, no cervical LNs noted, Respiratory: breathing non-labored, and no grunting/flaring/retractions, Chest: equal chest rise with normal respiratory effort, Abdomen: flat appearing. Visible protrusions or hernias: No Incisions/scars: None Areas of pain/tenderness: Denies Skin: no rash noted, Neuro: Patient seen sitting with normal appearing strength and coordination. No focal motor deficits. Psych: Appropriate mood and interaction Most recent labs: CBC: WBC (k/uL) Date Value 07/09/2023 7.29 Hematocrit (%) Date Value 07/09/2023 32.0 (L) MCV (fL) Date Value 07/09/2023 89.4 Platelet Count (k/uL) Date Value 07/09/2023 473 (H) Lymphocytes % (%) Date Value 07/09/2023 24.8 Hepatic Function Panel: Albumin (g/dL) Date Value 07/09/2023 3.8 (L) Bilirubin, Total (mg/dL) Date Value 07/09/2023 0.4 Alkaline Phosphatase (U/L) Date Value 07/09/2023 63 AST (U/L) Date Value 07/09/2023 16 ALT (U/L) Date Value 07/09/2023 9 Protein, Total (g/dL) Date Value 07/09/2023 6.6 CRP: CRP Date Value Ref Range Status 07/09/2023 0.7 <0.9 mg/dL Final No results found for: QTBGOLD No results found for: HRINTP No results found for: TBTEST No results found for: PTMPT Folate Date Value Ref Range Status 07/09/2023 >20.0 >4.7 ng/mL Final Comment: A result of > 20 ng/mL is not necessarily indicative of a pathologic or treatable condition: it reflects a limitation of the test methodology. Assay reference range: 4.8 to 24.2 ng/mL. Suitable for detection of folate deficiency. Reference: Folate III (Folate III) [package insert V 1.0 [place]]. Luis Felipe [employer], [place], [place]: April 2015. Vitamin B12 Date Value Ref Range Status 07/09/2023 1,042 232 - 1,245 pg/mL Final Iron Date Value Ref Range Status 07/09/2023 23 (L) 41 - 186 ug/dL Final TIBC Date Value Ref Range Status 07/09/2023 264 232 - 386 ug/dL Final Vitamin D 25 Hydroxy Date Value Ref Range Status 07/09/2023 31.0 31.0 - 80.0 ng/mL Final Comment: Classification of 25 OH Vitamin D status: Deficiency/Insufficiency: < or = 30 ng/ml. Sufficiency/Optimal Levels: 31-80 ng/mL Toxicity: > 100 ng/mL. Test performed by chemiluminescent immunoassay. Last Endoscopy: Colonoscopy 07/18/2023 Impression: - Patient exam was overall suggestive of extensive ulcerative colitis. - The examined portion of the ileum was normal. Biopsied. - Severe (De Score 3) ulcerative colitis in rectum and left colon. Biopsied. - Moderately active (De Score 2) ulcerative colitis from the splenic flexure to the ascending colon. Biopsied. - Cecal patch was seen. Pathology: FINAL DIAGNOSIS A. Terminal ileum, biopsy: - Small intestinal mucosa with no significant diagnostic abnormality. B. Colon, cecum, biopsy: - Focal active colitis (see comment). - No evidence of granulomas or dysplasia. C. Colon, ascending, biopsy: - Patchy active colitis (see comment). - No evidence of granulomas or dysplasia. D. Colon, transverse, biopsy: - Patchy active colitis (see comment). - No evidence of granulomas or dysplasia. E. Colon, left, biopsy: - Active colitis with ulceration (see comment). - No evidence of granulomas or dysplasia. F. Rectum, biopsy: - Active colitis (see comment). - No evidence of granulomas or dysplasia. Assessment IMPRESSION (as copied and updated from my / note and reflects medical decision making today): 23 year old female with a recent diagnosis of Ulcerative Colitis She presents today as a post endoscopy follow-up. Found to have De 2 to De 3 colitis started on prednisone. Currently with 6 bowel movements daily some improvement since starting prednisone. Still with cramping and fatigue as well as nocturnal vocation and urgency. Still with some blood. Appetite is better tolerating diet weight is stable. Currently on 40 mg of prednisone. Will plan to start Stelara in the very near future we will have her see the pharmacist for education and discussion of health maintenance. Will plan to continue prednisone taper and follow-up in 5 to 6 weeks to reassess. She will get prebiologic blood work done as well PLAN Plan to start stelara Prebiologic labs Consult to IBD pharmacist Continue prednisone taper Plan to follow-up in around 5 to 6 weeks to reassess Medical Decision Making: Problems: Moderate: New problem with uncertain prognosis Data: Unique source(s) for external note(s) reviewed: 1 Unique test result(s) reviewed: 2 Risk: High: Drug therapy requiring intensive monitoring Medical Decision Making Level: 4 - Moderate I spent 25 minutes in the virtual visit, with more than 50% of the total [id number] time of the visit in counseling / coordination of care. I have confirmed and edited as necessary, the PFSH and ROS obtained by others. I will communicate my recommendations and prescriptions to the patient's primary care provider. Unrelated to E/M, telemedicine, or virtual visit service provided within previous 7 days. No E/M service or procedure anticipated within next 24 hours. I have communicated my name and active licensure. The patient's identity and physical location were verified at the time of this visit. Either the patient or their legal member services representative has been informed of the risks and benefits of -- and alternatives to -- treatment through a remote evaluation and consents to proceed with the evaluation remotely. Dalotn Mark PA-C July 25, 2023 4:05 PM documented in this encounter [facility] 07-25-2023 History and physical note Opened in error documented in this encounter [facility] 07-16-2023 Note HNO ID: [id number] Author: DALTON MARK PA-C Service: ? Author Type: Physician Polls Or Surveys Interviewer Type: Progress Notes Filed: 07/17/2023 12:48 Note Text: New Patient Visit SUBJECTIVE 23 year old female presents today as new patient due to concern for IBD HPI: Has had bleeding for several years had a Sigmoidoscopy locally in 06/2022 which was overall normal. Then over the last two months with more frequency. With 7-10 BMs daily blood in the stool. Has cramping no real urgency or incontinence. Nocturnal defecation 1-2 times a night at least. Some nausea currently on Amoxicillin due to colonic inflammation prescribed by ER. Some loss of appetite has lost 4-5 lbs over the last week due to decreased appetite Was on Canasa a year ago with relief tried again this year for a month with no relief No EIMs. Energy level is a little low No family hx No tobacco, Alcohol, NSAID No Recent Travel change in diet or medication no recent viral illness an no sick contact CT 07/13/23 IMPRESSION: Diffuse colonic wall thickening from the distal sigmoid colon to the mid ascending colon consistent patient's history of ulcerative colitis. Small pelvic free fluid. No obstruction. No pneumoperitoneum. CBC: WBC (k/uL) Date Value 07/09/2023 7.29 Hematocrit (%) Date Value 07/09/2023 32.0 (L) MCV (fL) Date Value 07/09/2023 89.4 Platelet Count (k/uL) Date Value 07/09/2023 473 (H) Lymphocytes % (%) Date Value 07/09/2023 24.8 Hepatic Function Panel: Albumin (g/dL) Date Value 07/09/2023 3.8 (L) Bilirubin, Total (mg/dL) Date Value 07/09/2023 0.4 Alkaline Phosphatase (U/L) Date Value 07/09/2023 63 AST (U/L) Date Value 07/09/2023 16 ALT (U/L) Date Value 07/09/2023 9 Protein, Total (g/dL) Date Value 07/09/2023 6.6 Current Clinical Symptoms # of bowel movements daily: 7-10 # of liquid stools daily: most Consistency: loose Bloody bowel movements: yes Urgency: yes Abdominal pain: yes Abdominal distention: yes Nausea/vomiting: no Weight loss over last 3 months: no General well-being: poor Current Outpatient Medications Medication Sig Dispense Refill amoxicillin-clavulanate potassium (AUGMENTIN) 875-125 mg per tablet Take 1 tablet by mouth every 12 hours. ferrous sulfate 325 mg (65 mg iron) tablet Take 1 tablet by mouth two times a day. 180 tablet 0 No current facility-administered medications for this visit. ALLERGIES No Known Allergies PHYSICAL EXAMINATION BP 110/72 Pulse 97 Temp (Src) 98.3 (Temporal) Ht 5' 6 (1.68m) Wt 154 lb (69.9kg) SpO2 99% LMP 07/08/2023 BMI 24.87 kg/(m2). General Appearance: alert, oriented x 3, pleasant and in no acute distress Heart:regular rate and rhythm, no murmurs or gallops Abdomen: Not distended. Normal bowel sounds. Soft and tender to RLQ. No masses or organomegaly. Skin: no rashes or lesions Lymph:No cervical, axillary, supraclavicular, or inguinal adenopathy. Assessment IMPRESSION Ms. Borjas is a 23-year-old female who presents today to establish care for possible inflammatory bowel disease. Of note she has had bleeding for several years and had a colonoscopy and sigmoidoscopy in the past locally which were normal. Over the last 2 months started having more frequency with 7-10 bowel movements daily blood in the stool cramping some urgency no incontinence. Nocturnal defecation 1-2 times a night with some nights being worse. Has some nausea. Of note currently on amoxicillin as an outside CT revealed inflammation in the colon in the ER started her on antibiotics that she is now stopping as she notes it makes her feel worse. She has a decreased appetite and feels like she has lost some weight around 4 to 5 pounds. Was on Canasa about a year ago with some relief but tried again earlier this year with no relief. No extraintestinal manifestations but does have low energy level. Of note no family history of inflammatory bowel disease or GI cancers no tobacco stopped patient is on no NSAIDs. No recent travel or change in diet or medication and no recent sick contacts or any other viral illnesses. I discussed planning to get a fecal calprotectin as well as a colonoscopy with TI intubation to help rule out inflammatory bowel disease. Will use Bentyl for the cramping. If her fecal Ora is elevated we will plan to start budesonide to see if this helps. Will plan follow-up after colonoscopy to decide further intervention. PLAN Fecal ora Colonoscopy with TI intubation and biopsies to evaluated from Crohn's, UC, Microscopic colitis Bentyl for cramping May benefit from Budesonide/prednisone pending fecal ora Plan follow up after scope to discuss further Medical Decision Making: Problems: Moderate: New problem with uncertain prognosis Data: Unique source(s) for external note(s) reviewed: 2 Unique test result(s) reviewed: 2 Unique test(s) ordered: 2 Risk: Moderate: Moderate ris (more content not included)... [facility] 07-09-2023 Note HNO ID: [id number] Author: JESSICA DAWSON APRN.YADIRA Service: ? Author Type: Nurse Practitioner Type: Progress Notes Filed: 07/10/2023 15:53 Note Text: Patient presents with: Rectal Bleeding Recheck HPI: Pt here today for express care follow-up. Accompanied by mother. Looking for PCP; current PCP has not check labs. Looking for another GI opinion. Pt seen by me on 07/06/23. Notes below: Pt here today for rectal bleeding. Seen by GI in the past. LEIGH ANN 06/20/23 with GI. September 2022 sigmoidoscopy in September; hemorrhoids. 06/2022 colonoscopy; normal exam, no biopsies. Has a PCP. Feels not much is being done. Pt states worsening bleeding over the last year. Pt denies vomiting. Pt is having a BM 6-7 times per day. Liquid stool noted after stomach cramping. Worse over the last BM. Some solid stool. Denies constipation. IBS? Celiac? Notes blood in the water, stool, and when she wipes. Home cooked meals. Eliminating dairy; nothing in two weeks. Has not eliminated gluten. Taking probiotic daily. Pt denies anxiety or stress. Pt states she is staying hydrated. Weight is stable. UTI the last two month; antibiotic 2-3 weeks ago. Denies travel outside of the [place]. Started fiber one tsp daily since our express care visit. Cramping for a little over a month. Liquid stool. Blood noted with each bowel movement. Weight stable. BP 115/76 (BP Site: Left Arm, BP Position: Sitting, BP Cuff Size: Regular Adult) Pulse 82 Wt 74.8 kg (165 lb) HISTORIES No family history on file. No past medical history on file. No past surgical history on file. ALLERGIES No Known Allergies No current outpatient medications on file. No current facility-administered medications for this visit. REVIEW OF SYSTEMS As noted in HPI. PHYSICAL EXAMINATION: General appearance: Well appearing, alert, in no acute distress, well-hydrated, well nourished. Skin: Skin color, texture, turgor normal, no suspicious rashes or lesions Head: Normocephalic Eyes: Anicteric sclera. Oropharynx: Lips, mucosa, and tongue normal, teeth and gums normal, oropharynx normal Lungs: Lungs clear to auscultation. No wheezing, rhonchi, rales Heart: RRR without murmur, gallop, or rubs. No ectopy Abdomen: Normal abdominal exam, Abdomen soft, non-tender. Bowel sounds normal. No masses, organomegaly There is no problem list on file for this patient. ASSESSMENT/PLAN: 1. Rectal bleeding - ICD9: 569.3, ICD10: K62.5 (primary diagnosis) Celiac? Lactose? IBS? Colitis? - CBC + DIFF - FERRITIN BLD - COMP METABOLIC PANEL - TSH BLD - CELIAC COMPREHENSIVE PANEL - H PYLORI IGG AB - SED RATE WESTERGREN - C-REACTIVE PROTEIN (CRP) - CUCA BY IFA WITH REFLEX - IRON + TIBC - VITAMIN B12 BLOOD - MAGNESIUM BLD - VITAMIN D 25 HYDROXY - FOLATE SERUM - CONSULT TO GASTROENTEROLOGY - LIPASE BLD - HGB A1C - AMYLASE BLD 2. Chronic diarrhea - ICD9: 787.91, ICD10: K52.9 - CBC + DIFF - FERRITIN BLD - COMP METABOLIC PANEL - TSH BLD - CELIAC COMPREHENSIVE PANEL - H PYLORI IGG AB - SED RATE WESTERGREN - C-REACTIVE PROTEIN (CRP) - CUCA BY IFA WITH REFLEX - IRON + TIBC - VITAMIN B12 BLOOD - MAGNESIUM BLD - VITAMIN D 25 HYDROXY - FOLATE SERUM - CONSULT TO GASTROENTEROLOGY - LIPASE BLD - HGB A1C - AMYLASE BLD Have the blood work completed today. Get a stool set at the lab. Consult placed for gastroenterology. Continue to keep a log of your symptoms. What did you eat. Caffeine. Menstrual cycle. Stress. Cut out gluten. Cut out lactose. Consider a low FODMAP. Jessica Dawson APRN.YADIRA [facility] 07-06-2023 Note HNO ID: [id number] Author: JESSICA DAWSON APRN.YADIRA Service: ? Author Type: Nurse Practitioner Type: Progress Notes Filed: 07/06/2023 12:26 Note Text: Patient presents with: Rectal Bleeding : Patient presents for evaluation of rectal bleeding that has been going on for the last 2 years. She states she has 6-7 loose bowel movements per day and developed abdominal cramping intermittently 2 months ago. She is followed by GI but does not have a future appt with GI. Her last colonoscopy was done in September 2022 which showed internal hemorrhoids. HPI: Pt here today for rectal bleeding. Seen by GI in the past. LEIGH ANN 06/20/23 with GI. September 2022 sigmoidoscopy in September; hemorrhoids. 06/2022 colonoscopy; normal exam, no biopsies. Has a PCP. Feels not much is being done. Pt states worsening bleeding over the last year. Pt denies vomiting. Pt is having a BM 6-7 times per day. Liquid stool noted after stomach cramping. Worse over the last BM. Some solid stool. Denies constipation. IBS? Celiac? Notes blood in the water, stool, and when she wipes. Home cooked meals. Eliminating dairy; nothing in two weeks. Has not eliminated gluten. Taking probiotic daily. Pt denies anxiety or stress. Pt states she is staying hydrated. Weight is stable. UTI the last two month; antibiotic 2-3 weeks ago. Denies travel outside of the [place]. BP 118/81 Pulse 85 Temp 36.7 ?C (98.1 ?F) (Temporal) Resp 16 HISTORIES No family history on file. No past medical history on file. No past surgical history on file. ALLERGIES No Known Allergies No current outpatient medications on file. No current facility-administered medications for this visit. REVIEW OF SYSTEMS As noted in HPI. PHYSICAL EXAMINATION: General appearance: Well appearing, alert, in no acute distress, well-hydrated, well nourished. Skin: Skin color, texture, turgor normal, no suspicious rashes or lesions Head: Normocephalic Eyes: Anicteric sclera. Oropharynx: Lips, mucosa, and tongue normal, teeth and gums normal, oropharynx normal Lungs: Lungs clear to auscultation. No wheezing, rhonchi, rales Heart: RRR without murmur, gallop, or rubs. No ectopy Abdomen: Normal abdominal exam, Abdomen soft, non-tender. Bowel sounds normal. No masses, organomegaly Extremities: No deformities, edema, skin discoloration, clubbing or cyanosis. There is no problem list on file for this patient. ASSESSMENT/PLAN: 1. Diarrhea, unspecified type - ICD9: 787.91, ICD10: R19.7 (primary diagnosis Celiac? - C. DIFFICILE PCR - OVA + PARA MICROSCOPIC - ENTERIC BACTERIAL PANEL BY PCR 2. Rectal bleeding - ICD9: 569.3, ICD10: K62.5 - CONSULT TO GASTROENTEROLOGY Follow-up with GI for your symptoms. START metamucil 1tsp once daily. STOOL cultures ordered. WORSENING SYMPTOMS, NAUSEA/VOMITING, FEVER, WORSENING ABDOMINAL PAIN, OR RECTAL BLEEDING, GO TO THE NEAREST EMERGENCY DEPARTMENT. Jessica Dawson APRN.YADIRA [facility] 02-14-2023 Evaluation note Encounter Date Diagnosis Assessment Notes Jan, Hemorrhoids, internal (ICD-10 - K64.8) [employer] Other 02-09-2023 Evaluation note* Encounter Date Diagnosis Assessment Notes Treatment Notes Treatment Clinical Notes Jul, Proctitis (ICD-10 - K62.89) Continue Mesalamine suppositories for 8 weeks Flex sig after 8 weeks of treatment [employer] Other 01-11-2023 NoteOPERATIVE NOTE OPERATION DATE: 06/27/2022 PREOPERATIVE DIAGNOSIS: Intermittent rectal bleeding. POSTOPERATIVE DIAGNOSIS: Rectal inflammation. PROCEDURE: Colonoscopy to cecum with rectal biopsy x2. SURGEON: Sebastian Ferguson M.D. ANESTHESIA: Monitored anesthesia care. ESTIMATED BLOOD [...] room in good condition. CC: Enrique Thomson M.D.[facility] [id number] NoteChief Complaint consultation for rectal bleeding HPI [...] Recorded poliovirus vaccine, inactivat (more content not included)...[facility]Result Comment: Electronically Signed By: MARTY MIJARES, Sebastian Marie\Date and Time Signed: 05/22/22 16:11 ESTEvaluation + Plan note No data available for this section General Surgery Mara Evaluation + Plan noteGeneral Surgery Mara Evaluation noteNo InformationNort [employer] Other Evaluation noteNo assessment information available [place] Work Phone: Evaluation note* Diagnosis IBD (inflammatory bowel disease)- Primary Other and unspecified noninfectious gastroenteritis and colitis documented in this encounter [facility] note* Diagnosis OPENED IN ERROR To allow closing an encounter opened in error (used in SmartSet) documented in this encounter [facility] note* Diagnosis Ulcerative pancolitis with rectal bleeding (HCC) documented in this encounter [facility] note* Diagnosis Ulcerative pancolitis with rectal bleeding (HCC)- Primary documented in this encounter [facility] note* Diagnosis Ulcerative pancolitis with rectal bleeding (HCC)- Primary documented in this encounter [facility] note* Diagnosis Ulcerative pancolitis with rectal bleeding (HCC)- Primary documented in this encounter [facility] note* Diagnosis Ulcerative pancolitis with rectal bleeding (HCC) [facility] - Reported* Type Description Date Medical History proctitis Surgical History wisdom tooth extraction Surgical History abscess removal, right yarsanism [facility] [employer] Other Hospital Discharge instructions No data available for this section General Surgery Mara Progress note No data available for this section General Surgery Mara Reason for referral (narrative) Referred by: Sebastian FERGUSON MD General Surgery [place] Remnme for visit NarrativeCONSULT FOR ULCERATIVE PROCTITIS//REFERRAL FROM [facility] [employer] Other Summary Purpose Family History Relationship Condition Age at Onset Recorded Date/T justin Not Specified No pertinent family history Unknown Advance Directives Advance Directive Response Recorded Date/ Time Advance Directives No September 17 8:55am Chief Complaint and Reason for Visit Chief Complaint abd pain, blood in s tool Additional Source Comments Patient Care team informatio n (unrecognized section and content) Team Status: Active Member Role Status Dates NON STAFF Primary Care Provider Active Team Status: Inactive Member Role Status Dates NON STAFF Primary Care Provider Active Start: July 13, 2023 End: July 13, 2023 Mahad Bishop PA-C Emergency Provider Active Start: July 13, 2023 End: July 13, 2023 Director Medical Safety Relationship Specialty Start Date End Date Jessica Dawson, MECH[employer]IC [employer] [address] [place] [address] PCP - General Internal Medicine 07/06/23 Director Medical Safety Relationship Specialty Start Date End Date Jessica Dawson, MECHANIC FOREMAN.[employer] [address] [place] [address] PCP - General Internal Medicine 07/06/23 Director Medical Safety Relationship Specialty Start Date End Date Jessica Dawson, MECHANIC FOREMAN.[employer] [address] [place] [address] PCP - General Internal Medicine 07/06/23 Director Medical Safety Relationship Specialty Start Date End Date Jessica Dawson APRN.[employer]TER [employer]ENT [address] [place] [address] PCP - General Internal Medicine 07/06/23 Director Medical Safety Relationship Specialty Start Date End Date Jessica Dawson APRN.[employer]TER [employer]ENT [address] [place] [address] PCP - General Internal Medicine 07/06/23 Director Medical Safety Relationship Specialty Start Date End Date Jessica Dawson APRN.[employer]TER [employer] [address] [place] [address] PCP - General Internal Medicine 07/06/23 Director Medical Safety Relationship Specialty Start Date End Date Jessica Dawson APRN.F[employer]TER [employer]ENT [address] [place] [address] PCP - General Internal Medicine 07/06/23 INFORMATION SOURCE (unrecogn ized section and content) DATE CREATED AUTHOR 08/23/2022 Suman Lopezevue [facility] DATE CREATED AUTHOR AUTHOR'S ORGANIZ ATION 10/20/2022 [facility] DATE CREATED AUTHOR AUTHOR'S ORGANIZ ATION 07/12/2023 [facility] DATE CREATED AUTHOR AUTHOR'S ORGANIZ ATION 07/23/2023 [facility] DATE CREATED AUTHOR AUTHOR'S ORGANIZ ATION 09/11/2023 [facility] REASON FOR VISIT (unrecogniz ed section and content) Reason Comments Consult Specialty Diagnoses / Procedures Referred By Sheryl conrad Referred To Contact Gastroenterology Diagnoses Rectal bleeding Chronic diarrhea Procedures CONSULT TO GASTROENTEROLOGY OFFICE/OUTPATIENT [facility] 60 MINUTES Jessica Dawson APRN.FITTER ARMAMENT [address] [place] [address] Referral ID Status Reason Start Date Expiration Date V isits Requested Visits Authorized [id number] Closed PCP Requested Referral 07/09/2023 07/08/2024 1 1 Reason Comments Ulcerative Colitis Reason Onset Date Comments SPP Inflammatory Conditions - Treatment Referral 09/10/2023 [employer] Authorization 09/10/2023 KISHA gibbs ssion pending Specialty Diagnoses / Procedures Referred By Contac t Referred To Contact Diagnoses Ulcerative pancolitis with rectal bleeding (HCC) Procedures USTEKINUMAB, IV INJECT, 1 MG Dalton Mark PA-C [address] [place] [address] [facility] [address] [place] [address] Referral ID Status Reason Start Date Expiration Date V isits Requested Visits Authorized [id number] Authorized 07/25/2023 09/20/2023 1 1 Reason Comments Radio Gen RMP Goals (unrecognized section and content) Goals may be documented in a n alternate section Source Comments (unrecognize d section and content) In the event this informatio n is protected by the Federal Confidentiality of Alcohol and Drug Abuse Patient Records regulations: The Federal rules restrict any use of the information to criminally investigate or prosecute any alcohol or drug abuse patient.[facility] the event this information is protected by the Federal Confidentiality of Alcohol and Drug Abuse Patient Records regulations: The Federal rules restrict any use of the information to criminally investigate or prosecute any alcohol or drug abuse patient.[facility] Health[facility] the event this information is protected by the Federal Confidentiality of Alcohol and Drug Abuse Patient Records regulations: The Federal rules restrict any use of the information to criminally investigate or prosecute any alcohol or drug abuse patient.[facility] Health[facility] the event this information is protected by the Federal Confidentiality of Alcohol and Drug Abuse Patient Records regulations: The Federal rules restrict any use of the information to criminally investigate or prosecute any alcohol or drug abuse patient.[facility] Health[facility] the event this information is protected by the Federal Confidentiality of Alcohol and Drug Abuse Patient Records regulations: The Federal rules restrict any use of the information to criminally investigate or prosecute any alcohol or drug abuse patient.[facility] HealthIn the event this information is protected by the Federal Confidentiality of Alcohol and Drug Abuse Patient Records regulations: The Federal rules restrict any use of the information to criminally investigate or prosecute any alcohol or drug abuse patient.[facility] HealthIn the event this information is protected by the Federal Confidentiality of Alcohol and Drug Abuse Patient Records regulations: The Federal rules restrict any use of the information to criminally investigate or prosecute any alcohol or drug abuse patient.[facility] HealthIn the event this information is protected by the Federal Confidentiality of Alcohol and Drug Abuse Patient Records regulations: The Federal rules restrict any use of the information to criminally investigate or prosecute any alcohol or drug abuse patient.[facility] Inactive Administered Medications - up to 3 most recent administrations Administered Medications (un recognized section and content) Medication Order MAR Action Action Date Dose Rate Site sodium chloride 0.9 % (flush) 10-20 mL (BD POSIFLUSH) 10-20 mL, INTRAVENOUS, NEEDED, Starting on Sat09/10/23 at 0700, Until Sat09/11/23 at 0456, See Administration Instructions, If no IVAD access, may place IV if needed for labs or possible treatment. Flush 10-20ml on IV start and as needed. D5W or LR may be used in place of NS for medication that are incompatible (i.e. with oxaliplatin). Given 09/10/2023 7:05 AM EDT 10 mL ustekinumab 390 mg in NaCl 0.9% 250 mL (STELARA) 390 mg, INTRAVENOUS, at 250 mL/hr, Administer over 60 Minutes, ONCE, 1 dose, On Sat09/10/23 at 0730, EXP: (4 HR) - Total Volume Dose for patients weighing greater than 55kg and less than or equal to 85kg equals 390 mg. Administer with 0.2 micron filter. New Bag/Syringe/Bottle 09/10/2023 7:50 AM EDT 390 mg 250 mL/hr FOR RECORDS PERTAINING TO PATIENTS WHO ARE [...] BE BASED ON THE PRIMARY CLINICAL RECORDS. [facility] [email or web address] [facility]. provides no warranty or guarantee of the accuracy or completeness of information in this document.
== END 2024-03-02 09:51 | disposition home or self-care (01) ==
LOC: LAB 09:51
PROVIDERS: PCP Nurse Practitioner Family; Visit Provider Nurse Practitioner Family
DX: R30.0 Dysuria (principal)
CPT/HCPCS: 81003; 87086